=== PATIENT | male | born 1935 | race Caucasian/White ===

== ENCOUNTER 2020-08-09 16:51 | Inpatient (IN) | payer MEDICARE, MEDICAID, SELFPAY ==
--- NOTE | 2020-08-09 16:57 | XR_ITS ---
EXAMINATION: XR CHEST CLINICAL INFORMATION: Small bowel obstruction COMPARISON: Chest x-ray 10/04/2019 TECHNIQUE: Frontal portable view of the chest was obtained. 5:01 PM FINDINGS: Lungs are clear. No pulmonary vascular congestion. There is no pleural effusion. The heart size is normal. The cardiac and mediastinal contours are normal. There are a small volume calcifications of the thoracic aorta. Thoracic aorta is tortuous. There are multilevel degenerative changes of dorsal spine. XR/XR chest 1V IMPRESSION: No acute abnormality of the chest.
[2020-08-09 17:02] VITALS: BP 138/73; PULSE 105; RESP 25; TEMP 38.3; O2SAT 88; BMI 19.3
--- NOTE | 2020-08-09 17:08 | PC.NURSE ---
PLEASE Call oleg[facility] [phone] with updates. daughter in law.
--- NOTE | 2020-08-09 17:22 | ED_ITS ---
HPI - General Adult General Chief complaint: Fever Stated complaint: HYPOXIA Time Seen by Provider: 08/09/20 16:57 Source: EMS and old records reviewed Mode of arrival: EMS Limitations: altered mental status History of Present Illness HPI narrative: Patient with recent discharge transfer to detention on 07/06 had ESBL E coli and VRE in the urine but repeat culture was negative came back from detention for increased lethargic fever shortness of breath saturating 85% at room air. patient has significant dementia with limited history Related Data Home Medications Medication Instructions Recorded Confirmed amlodipine 1 tab PO DAILY 08/09/20 08/09/20 atorvastatin 1 tab PO DAILY 08/09/20 08/09/20 cephalexin 1 cap PO BID 08/09/20 08/09/20 cephalexin 1 cap PO BID 08/09/20 08/09/20 clopidogrel 1 tab PO DAILY 08/09/20 08/09/20 divalproex 250 mg PO BID 08/09/20 08/09/20 donepezil 1 tab PO DAILY 08/09/20 08/09/20 doxycycline hyclate 1 cap PO BID 08/09/20 08/09/20 haloperidol lactate 1 mg PO BID 08/09/20 08/09/20 hydralazine 20 mg PO DAILY@199908/09/20 08/09/20 lorazepam 0.5 mg PO Q4-6H PRN 08/09/20 08/09/20 metoprolol tartrate 1 tab PO BID 08/09/20 08/09/20 olanzapine 1 tab PO BEDTIME 08/09/20 08/09/20 omeprazole 1 cap PO DAILY 08/09/20 08/09/20 sertraline 1 tab PO DAILY 08/09/20 08/09/20 Allergies Allergy/AdvReac Type Severity Reaction Status Date / Time lisinopril [LISINOPRIL] Allergy Severe angioedema Unverified 07/01/20 15:14 Review of Systems Review of Systems: Yes Unobtainable due to mental status Neurologic: Reports confusion Psychiatric: Psychiatric: Reports confusion PMFSH Social History Social History Alcohol intake: unknown Smoking Status: Unknown if ever smoked Use of substances other than those prescribed or required for medical reasons: Unable to respond Advance Directives: No Advance Directives Information Provided: No Physical Exam Vital Signs: Vital Signs: Vital Signs Temp Pulse Resp BP Pulse Ox 08/09/20 21:27 84 14 100/57 L 91 L 08/09/20 20:31 98.3 F 98 18 94/46 L 08/09/20 18:00 112 H 16 126/73 08/09/20 17:02 101 F H 105 H 25 H 138/73 88 L Body Mass Index 19.3 Const: General: in distress, confusion, ill appearing and lethargic Nutritional Appearance: malnourished Orientation/consciousness: oriented to person, No oriented to place, No oriented to time, confusion and lethargic Limitations: altered mental status HENMT: Head: Yes normal to inspection Mouth: mucous membranes dry Eyes: General: appearance normal, both eyes and all related structures Neck: Neck: Yes normal visual inspection, Yes full ROM and Yes no lymphadenopathy Resp: Effort & Inspection: normal respiratory effort Auscultation: rales diffuse, no rhonchi, no wheezes and diminished lung sounds Cardio: Rate: regular rate and tachycardic Rhythm: regular rhythm Heart sounds: S1 normal heart sound present and S2 normal heart sound present GI: Inspection: Yes normal to inspection Palpation (GI): Soft to palpation and nontender Percussion: Yes normal to percussion Auscultation: normal bowel sounds : Other: Salas catheter in place Male General Exam: Yes normal external exam Neuro: General: oriented to person, No oriented to place, No oriented to time and confusion Cranial nerves: Yes CN's II-XII intact bilaterally Motor exa m (neuro): 5/5 motor strength present throughout ( no focal deficit) and Motor abnormalities not present Course Course Course Narrative: patient with acute lethargic fever tachycardia hypoxia and a cute renal failure, UTI, pneumonia meeting the criteria for sepsis with dehydration. Patient received IV fluids more than 30 cc/kilogram IV antibiotic Invanz and vancomycin was given COVID-19 is negative will admit patient for IV fluids and antibiotics Medical Decision Making Lab Data Result diagrams: 08/09/20 17:28 08/09/20 17:28 Labs: Lab Results 08/09/20 08/09/20 08/09/20 Range/Units 17:28 17:28 17:28 WBC 5.4 (4.8-10.8) X10*3/uL RBC 4.55 L (4.60-5.80) X10*6/uL Hgb 10.6 L (14.0-18.0) g/dl Hct 35.1 L (42-52) % MCV 77.1 L (80-98) fL MCH 23.3 L (27.0-33.0) pg MCHC 30.2 L (31.0-36.0) g/dl RDW 16.9 H (11.0-16.0) % Plt Count 461 H (160-400) X10*3/uL MPV 9.9 (9.4-12.4) fL Immature Gran % (Auto) Cancelled Neut % (Auto) Cancelled Lymph % (Auto) Cancelled [place] % (Auto) Cancelled Eos % (Auto) Cancelled Baso % (Auto) Cancelled Lymph # (Auto) Cancelled [place] # (Auto) Cancelled Eos # (Auto) Cancelled Baso # (Auto) Cancelled Abs Immat Gran (auto) Cancelled Absolute Neuts (auto) Cancelled Absolute Nucleated RBC 0.000 (0.0-0.012) X10*3/uL Nucleated RBC % (auto) 0.0 (0.0-0.2) /100WBC Neutrophils % (Manual) 51 (45-73) % Band Neutrophils % 22 H (3-5) % Lymphocytes % (Manual) 18 L (20-40) % Monocytes % (Manual) 5 (2-11) % Metamyelocytes % 1 % Myelocytes % 3 % Abs Neuts (Manual) 3.9 (2.2-7.9) X10*3/uL Lymphocytes # (Manual) 1.0 (0.6-4.8) X10*3/uL Monocytes # (Manual) 0.3 (0.0-1.2) X10*3/uL Metamyelocytes # 0.1 X10*3/uL Myelocytes # 0.2 X10*/uL Nucleated RBCs 2 H (0-0) /100WBC Toxic Vacuolation PRESENT Dohle Bodies PRESENT Platelet Estimate INCREASED (NORMAL) Large Platelets PRESENT Plt Morphology Comment NORMAL RBC Morphology NORMAL VBG pH (7.32-7.43) VBG pCO2 mmhg VBG Oxygen Liters/Min VBG pO2 mmhg VBG HCO3 mmol/L VBG O2 Saturation % VBG Base Excess mmol/L Sodium 152 H (135-145) mmol/L Potassium 4.5 (3.3-5.1) mmol/l Chloride 113 H (96-108) mmol/L Carbon Dioxide 17 L (22-29) mmol/L Anion Gap 27 H (12-20) BUN 116 H* (9-16) mg/dL Creatinine 5.57 H* (0.5-1.4) mg/dL Estim Creat Clear Calc 6.8 Estimated GFR 10 Random Glucose 98 (60-115) mg/dL Lactic Acid 1.9 (0.5-2.0) mmol/L Calcium 8.6 (8.4-10.2) mg/dL Total Bilirubin 0.3 (0.0-1.0) mg/dL AST 36 (5-37) U/L ALT 22 (0-40) U/L Alkaline Phosphatase 84 (39-117) U/L Total Protein 7.1 (6.5-8.0) g/dL Albumin 3.6 (3.5-5.0) g/dL Urine Color Urine Appearance Urine pH (5.0-8.0) Ur Specific [place] (1.005-1.025) Urine Protein (NEG-TRACE) MG/DL Urine Glucose (UA) (NEG) MG/DL Urine Ketones (NEG) MG/DL Urine Blood (NEG) Urine Nitrite (NEG) Ur Leukocyte Esterase (NEG) Urine RBC (0) /HPF Urine WBC (0-4) /HPF Ur Squamous Epith Cells /LPF Urine Bacteria /LPF Coronavirus (PCR) (Negative) 08/09/20 08/09/20 08/09/20 Range/Units 20:28 20:28 21:29 WBC (4.8-10.8) X10*3/uL RBC (4.60-5.80) X10*6/uL Hgb (14.0-18.0) g/dl Hct (42-52) % MCV (80-98) fL MCH (27.0-33.0) pg MCHC (31.0-36.0) g/dl RDW (11.0-16.0) % Plt Count (160-400) X10*3/uL MPV (9.4-12.4) fL Immature Gran % (Auto) Neut % (Auto) Lymph % (Auto) Butts % (Auto) Eos % (Auto) Baso % (Auto) Lymph # (Auto) [place] # (Auto) Eos # (Auto) Baso # (Auto) Abs Immat Gran (auto) Absolute Neuts (auto) Absolute Nucleated RBC (0.0-0.012) X10*3/uL Nucleated RBC % (auto) (0.0-0.2) /100WBC Neutrophils % (Manual) (45-73) % Band Neutrophils % (3-5) % Lymphocytes % (Manual) (20-40) % Monocytes % (Manual) (2-11) % Metamyelocytes % % Myelocytes % % Abs Neuts (Manual) (2.2-7.9) X10*3/uL Lymphocytes # (Manual) (0.6-4.8) X10*3/uL Monocytes # (Manual) (0.0-1.2) X10*3/uL Metamyelocytes # X10*3/uL Myelocytes # X10*/uL Nucleated RBCs (0-0) /100WBC Toxic Vacuolation Dohle Bodies Platelet Estimate (NORMAL) Large Platelets Plt Morphology Comment RBC Morphology VBG pH 7.26 L (7.32-7.43) VBG pCO2 38 mmhg VBG Oxygen Liters/Min Not Reportable VBG pO2 46 mmhg VBG HCO3 17 mmol/L VBG O2 Saturation 75.1 % VBG Base Excess -9.4 mmol/L Sodium (135-145) mmol/L Potassium (3.3-5.1) mmol/l Chloride (96-108) mmol/L Carbon Dioxide (22-29) mmol/L Anion Gap (12-20) BUN (9-16) mg/dL Creatinine (0.5-1.4) mg/dL Estim Creat Clear Calc Estimated GFR Random Glucose (60-115) mg/dL Lactic Acid (0.5-2.0) mmol/L Calcium (8.4-10.2) mg/dL Total Bilirubin (0.0-1.0) mg/dL AST (5-37) U/L ALT (0-40) U/L Alkaline Phosphatase (39-117) U/L Total Protein (6.5-8.0) g/dL Albumin (3.5-5.0) g/dL Urine Color YELLOW Urine Appearance CLOUDY Urine pH 6.0 (5.0-8.0) Ur Specific [place] 1.025 (1.005-1.025) Urine Protein 2+ H (NEG-TRACE) MG/DL Urine Glucose (UA) NEG (NEG) MG/DL Urine Ketones NEG (NEG) MG/DL Urine Blood 2+ H (NEG) Urine Nitrite POS H (NEG) Ur Leukocyte Esterase 2+ H (NEG) Urine RBC 1-4 (0) /HPF Urine WBC 15-29 H (0-4) /HPF Ur Squamous Epith Cells TRACE /LPF Urine Bacteria 3+ /LPF Coronavirus (PCR) NEGATIVE (Negative) Discharge Plan Discharge Clinical Impression: Sepsis Qualifiers: Sepsis type: sepsis due to unspecified organism Sepsis acute organ dysfunction status: with acute organ dysfunction Severe sepsis acute organ dysfunction type: acute renal failure Acute renal failure type: unspecified Severe sepsis shock status: without septic shock Qualified Code(s): A41.9 - Sepsis, unspecified organism Pneumonia Qualifiers: Pneumonia type: due to unspecified organism Laterality: bilateral Lung location: unspecified part of lung Qualified Code(s): J18.9 - Pneumonia, unspecified organism Renal failure (ARF), acute on chronic Qualifiers: Acute renal failure type: unspecified Chronic kidney disease stage: stage 4 (severe) Qualified Code(s): N17.9 - Acute kidney failure, unspecified Patient Disposition: Admitted As Inpatient
[2020-08-09 17:39] LABS: Hematocrit 35.1 % (42-52); Hemoglobin 10.6 g/dl (14.0-18.0); Mean Corpuscular HGB Conc 30.2 g/dl (31.0-36.0); Mean Corpuscular Hemoglobin 23.3 pg (27.0-33.0); Mean Corpuscular Volume 77.1 fL (80-98); Mean Platelet Volume 9.9 fL (9.4-12.4); Platelet Count 461 X10*3/uL (160-400); Red Blood Count 4.55 X10*6/uL (4.60-5.80); Red Cell Distribution Width 16.9 % (11.0-16.0)
[2020-08-09 17:41] LABS: WBC ABN SCTR FOR CBC 1
[2020-08-09] MEDS: 0.9 % Sodium Chloride 1,500 ML 1500 ML IVCONT (17:46)
[2020-08-09] MEDS: Ertapenem Sodium 0.5 GM in 0.9 % Sodium Chloride 50 ML IV (17:48)
[2020-08-09] MEDS: Acetaminophen Supp 650 MG SUPP.RECT PR (17:49)
[2020-08-09] MEDS: 0.9 % Sodium Chloride 1,000 ML 999 ML IVCONT (17:49)
[2020-08-09 17:57] LABS: Lactic Acid 1.9 mmol/L (0.5-2.0)
[2020-08-09 18:00] VITALS: BP 126/73; PULSE 112; RESP 16
[2020-08-09 18:07] LABS: White Blood Count 5.4 X10*3/uL (4.8-10.8)
[2020-08-09 18:31] LABS: Alanine Aminotransferase 22 U/L (0-40); Albumin Level 3.6 g/dL (3.5-5.0); Alkaline Phosphatase 84 U/L (39-117); Anion Gap 27 (12-20); Aspartate Amino Transferase 36 U/L (5-37); Bilirubin Total 0.3 mg/dL (0.0-1.0); Blood Urea Nitrogen 116 mg/dL (9-16); Calcium 8.6 mg/dL (8.4-10.2); Carbon Dioxide 17 mmol/L (22-29); Chloride 113 mmol/L (96-108); Creatinine Clr Calc Pharmacy 6.8; Estimated Glomerular Filt Rate 10; Glucose Random 98 mg/dL (60-115); Potassium 4.5 mmol/l (3.3-5.1); Sodium 152 mmol/L (135-145); Total Protein 7.1 g/dL (6.5-8.0)
[2020-08-09 18:40] LABS: Band Neutrophils Percent 22 % (3-5); Lymphocytes Percent Manual 18 % (20-40); Metamyelocytes Absolute 0.1 X10*3/uL; Metamyelocytes Percent 1 %; Monocytes Absolute Manual 0.3 X10*3/uL (0.0-1.2); Monocytes Percent Manual 5 % (2-11); Myelocytes Absolute 0.2 X10*/uL; Myelocytes Percent 3 %; Neutrophils Absolute Manual 3.9 X10*3/uL (2.2-7.9); Neutrophils Percent Manual 51 % (45-73)
[2020-08-09 18:50] LABS: RBC Morphology NORMAL; Toxic Vacuolation PRESENT
[2020-08-09 18:51] LABS: Dohle Bodies PRESENT
[2020-08-09 18:52] LABS: Large Platelet PRESENT; Platelet Estimate INCREASED (NORMAL); Platelet Morphology Comment NORMAL
[2020-08-09 18:53] LABS: Nucleated Red Blood Cells 2 /100WBC (0-0)
--- NOTE | 2020-08-09 20:14 | CT_ITS ---
EXAMINATION: CT CHEST WITHOUT CONTRAST CLINICAL INFORMATION: Hypoxic. COMPARISON: Chest x-ray today. CT chest 09/28/2014. Ultrasound of abdomen 05/10/2009. CT scan abdomen pelvis 05/11/2019 TECHNIQUE: Multidetector volumetric CT imaging of the chest was done. Axial MIP volume rendering provided. Sagittal and coronal reformatted images were obtained. This CT examination was performed using dose optimization techniques as appropriate, variously including the following: *Automated exposure control *Adjustment of mA and/or kV according to patient size (this includes techniques or standardized protocols for targeted exams where dose is matched to indication/reason for exam; i.e. extremities or head) *Use of iterative reconstruction technique DLP: 321 mGy-cm FINDINGS: There is artifact from the patient's arms at the side during the imaging. LUNGS: There is patchy infiltrate at the posterior right lung base. There are small areas of peripheral consolidation of the infiltrate at the dependent lung base. There is also a small infiltrate at the dependent right upper lobe along the major fissure. Left lung is normally aerated. Lung nodule: 5 mm focal pleural thickening along the minor fissure axial image 31 series 4, coronal image 36. MEDIASTINUM: No significant lymphadenopathy. No mediastinal mass. There is no pericardial effusion. There are scattered vascular calcifications of aorta. The aorta is ectatic. The ascending aorta is mildly dilated measuring 4.3 cm transverse. PLEURA: There is no pleural effusion. No pleural mass or thickening. AXILLA: No lymphadenopathy. UPPER ABDOMEN: Hypodensity in the left renal pelvis upper pole similar to CT scan abdomen pelvis of 05/03/2019. No suspicious focal lesion of the visualized portions of liver, spleen, pancreas or the adrenal glands. OSSEOUS STRUCTURES: Multilevel degenerative spondylosis of the spine. CT/CT chest wo con IMPRESSION: Pneumonic infiltrate in right lower lobe and right upper lobe.
[2020-08-09 20:31] VITALS: BP 94/46; PULSE 98; RESP 18; TEMP 36.8
[2020-08-09 20:45] LABS: Base Excess VBG -9.4 mmol/L; HCO3 VBG 17 mmol/L; Oxygen Saturation VBG 75.1 %; PCO2 VBG 38 mmhg; PO2 VBG 46 mmhg; pH VBG 7.26 (7.32-7.43)
[2020-08-09 20:50] LABS: Glucose Urine UA NEG (NEG); Leukocyte Esterase Urine 2+ (NEG); Nitrite Urine POS (NEG); Specific Gravity - Urine 1.025 (1.005-1.025); Urine Blood 2+ (NEG); Urine Ketones NEG (NEG); Urine Protein 2+ MG/DL (NEG-TRACE)
[2020-08-09 20:57] LABS: Appearance Urine CLOUDY; Color Urine YELLOW
[2020-08-09 21:16] LABS: Bacteria Urine 3+ /LPF; Squamous Epithelial Cell Urine TRACE /LPF
[2020-08-09 21:27] VITALS: BP 100/57; PULSE 84; RESP 14; O2SAT 91
[2020-08-09] MEDS: vancomycin HCL 750 MG in 0.9 % Sodium Chloride 250 ML 265 MG IV (22:13)
--- NOTE | 2020-08-09 22:22 | PC.NURSE ---
This RN to bedside, pt sleeping at this time SPO2 89-92%, provider aware. Attempt to apply O2 by cannula, unsuccessful patient pulling it off. Anttibiotic started as ordered. Pt remains on playground monitor. Awaiting admission to inpatient unit.
[2020-08-09 22:27] LABS: SARS COV2 PCR INHOUSE NEGATIVE (Negative)
[2020-08-09 22:49] VITALS: BP 104/54; PULSE 93; O2SAT 93
[2020-08-10] VITALS (15 sets, daily range): BP systolic 87–136; BP diastolic 50–66; PULSE 86–107; RESP 20–35; TEMP 36.4–39.1; O2SAT 82–100; BMI 21.7
--- NOTE | 2020-08-10 | XR_ITS ---
EXAMINATION: XR CHEST CLINICAL INFORMATION: Shortness of breath COMPARISON: Chest x-ray 08/09/2020 TECHNIQUE: Frontal view of the chest was obtained. FINDINGS: Silhouette is normal in size. Lungs are adequately aerated. There is no gross lobar consolidation. No pleural effusion or pneumothorax. Degenerative changes of the spine and shoulders. XR/XR chest 1V IMPRESSION: Stable examination demonstrating no acute pulmonary pathology.
[2020-08-10] MEDS: cefEPime HCl 1 GM in 0.9 % Sodium Chloride 50 ML IV (00:15)
[2020-08-10] MEDS: Heparin Sodium,Porcine 5,000 UNIT/ML VIAL 5000 UNIT SUBCUT ×3 (00:15→23:28)
[2020-08-10] MEDS: Sodium Chloride 0.45 % 1,000 ML 100 ML IVCONT ×3 (00:16→18:31)
[2020-08-10] MEDS: 0.9 % Sodium Chloride Flush 3 ML SYRINGE IVFLUSH ×4 (00:16→23:28)
--- NOTE | 2020-08-10 05:10 | P.HPIM_ITS ---
History of Present Illness Date of Service: 08/09/20 Chief Complaint: lethargy this is an 84-year-old male with past medical history as below who is a resident of [facility] presents to the hospital with lethargy. Patient is completely confused and unable to give me any history therefore history is mostly obtained from ED physician. 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 Patient also has significant dementia. Today the chief complaint for why patient was brought into the hospital with lethargy and hypoxia. According to the [facility] nose patient was hypoxic at 85% on room air. On arrival to the ED patient was also febrile with a fever of 101 , other vitals are significant for a pulse rate of 105, respiratory rate of 25 and pulse oximetry of 80% on room air. Labs are significant for normal WBC count, hemoglobin of 10.6 which is around his baseline, sodium of 152, chloride of 113, BUN of 116 with a creatinine of 5.57 ( baseline around 1.4-1.9 ) positive UA for nitrites, leukocyte Estrace and WBC, CT of the chest shows pneumonic infiltrates in the right upper and lower lobe. COVID-19 negative past medical history is obtained mostly from the chart as patient is significan tly confused and unable to participate in history taking PAST MEDICAL HISTORY: 1. Dementia. 2. Urinary retention with chronic Salas. 3. Hypertension. 4. CKD, stage 3. 5. History of bladder stones. 6. Stroke February 2019, status post tPA. 7. Carotid stenosis, status post right carotid endarterectomy. PAST SURGICAL HISTORY: 1. Multiple urological procedures. 2. Cataract extraction with lens implantation. 3. Right carotid endarterectomy March 24, 2019. FAMILY HISTORY: Significant for hypertension. SOCIAL HISTORY: The patient is . Currently resides at [facility]. Review of Systems Review of Systems: Yes all other systems are reviewed and are negative Neurologic: Reports confusion Psychiatric: Psychiatric: Reports confusion PENDING SALE TO [facility] Medical History Chronic kidney disease (CKD) Dementia History of CVA (cerebrovascular accident) Hypertension Urinary retention Social History Household Members: Unknown / Unable to assess and Other Housing: Alf Alcohol intake: unknown Smoking Status: Unknown if ever smoked Use of substances other than those prescribed or required for medical reasons: Unable to respond Advance Directives: No Advance Directives Information Provided: No Do you have thoughts of harming others: None Do you have a plan to hurt others: No Plan Recently lost weight without trying: Unsure Meds Allergies Allergy/AdvReac Type Severity Reaction Status Date / Time lisinopril [LISINOPRIL] Allergy Severe angioedema Verified 08/10/20 01:53 Home Medications Medication Instructions Recorded Confirmed Type amlodipine 1 tab PO DAILY 08/09/20 08/09/20 History atorvastatin 1 tab PO DAILY 08/09/20 08/09/20 History cephalexin 1 cap PO BID 08/09/20 08/09/20 History cephalexin 1 cap PO BID 08/09/20 08/09/20 History clopidogrel 1 tab PO DAILY 08/09/20 08/09/20 History divalproex 250 mg PO BID 08/09/20 08/09/20 History donepezil 1 tab PO DAILY 08/09/20 08/09/20 History doxycycline hyclate 1 cap PO BID 08/09/20 08/09/20 History haloperidol lactate 1 mg PO BID 08/09/20 08/09/20 History hydralazine 20 mg PO DAILY@199908/09/20 08/09/20 History lorazepam 0.5 mg PO Q4-6H PRN 08/09/20 08/09/20 History metoprolol tartrate 1 tab PO BID 08/09/20 08/09/20 History olanzapine 1 tab PO BEDTIME 08/09/20 08/09/20 History omeprazole 1 cap PO DAILY 08/09/20 08/09/20 History sertraline 1 tab PO DAILY 08/09/20 08/09/20 History Physical Exam Vital Signs and Narrative: Vital Signs: Last Vital Signs Temp 97.5 F 08/10/20 03:19 Pulse 107 H 08/10/20 03:19 Resp 22 H 08/10/20 03:19 BP 105/66 08/10/20 03:19 Pulse Ox 98 08/10/20 03:19 Body Mass Index 21.7 Const: Other: alert but not oriented General: confusion Orientation/consciousness: confusion Eyes: General: appearance normal, both eyes and all related structures Pupils: Equal, round and reactive pupils present Resp: Effort & Inspection: normal respiratory effort and able to speak in complete sentences Auscultation: clear to auscultation bilaterally Cardio: Rate: regular rate Rhythm: regular rhythm GI: Palpation (GI): Soft to palpation Auscultation: normal bowel sounds Skin: General skin exam: no rashes or lesions noted Neuro: General: confusion Cranial nerves: Yes Equal, round and reactive pupils present Cognition (Neuro): normal cognition Extrem: General: Yes normal to inspection and Yes no pedal edema Results Labs Labs: Laboratory Tests 08/09/20 08/09/20 08/09/20 17:28 17:28 17:28 WBC 5.4 RBC 4.55 L Hgb 10.6 L Hct 35.1 L MCV 77.1 L MCH 23.3 L MCHC 30.2 L RDW 16.9 H Plt Count 461 H MPV 9.9 Immature Gran % (Auto) Cancelled Neut % (Auto) Cancelled Lymph % (Auto) Cancelled [place] % (Auto) Cancelled Eos % (Auto) Cancelled Baso % (Auto) Cancelled Lymph # (Auto) Cancelled [place] # (Auto) Cancelled Eos # (Auto) Cancelled Baso # (Auto) Cancelled Abs Immat Gran (auto) Cancelled Absolute Neuts (auto) Cancelled Absolute Nucleated RBC 0.000 Nucleated RBC % (auto) 0.0 Neutrophils % (Manual) 51 Band Neutrophils % 22 H Lymphocytes % (Manual) 18 L Monocytes % (Manual) 5 Metamyelocytes % 1 Myelocytes % 3 Abs Neuts (Manual) 3.9 Lymphocytes # (Manual) 1.0 Monocytes # (Manual) 0.3 Metamyelocytes # 0.1 Myelocytes # 0.2 Nucleated RBCs 2 H Toxic Vacuolation PRESENT Dohle Bodies PRESENT Platelet Estimate INCREASED Large Platelets PRESENT Plt Morphology Comment NORMAL RBC Morphology NORMAL VBG pH VBG pCO2 VBG Oxygen Liters/Min VBG pO2 VBG HCO3 VBG O2 Saturation VBG Base Excess Sodium 152 H Potassium 4.5 Chloride 113 H Carbon Dioxide 17 L Anion Gap 27 H BUN 116 H* Creatinine 5.57 H* Estim Creat Clear Calc 6.8 Estimated GFR 10 Random Glucose 98 Lactic Acid 1.9 Calcium 8.6 Total Bilirubin 0.3 AST 36 ALT 22 Alkaline Phosphatase 84 Total Protein 7.1 Albumin 3.6 Urine Color Urine Appearance Urine pH Ur Specific [place] Urine Protein Urine Glucose (UA) Urine Ketones Urine Blood Urine Nitrite Ur Leukocyte Esterase Urine RBC Urine WBC Ur Squamous Epith Cells Urine Bacteria Coronavirus (PCR) 08/09/20 08/09/20 08/09/20 20:28 20:28 21:29 WBC RBC Hgb Hct MCV MCH MCHC RDW Plt Count MPV Immature Gran % (Auto) Neut % (Auto) Lymph % (Auto) [place] % (Auto) Eos % (Auto) Baso % (Auto) Lymph # (Auto) [place] # (Auto) Eos # (Auto) Baso # (Auto) Abs Immat Gran (auto) Absolute Neuts (auto) Absolute Nucleated RBC Nucleated RBC % (auto) Neutrophils % (Manual) Band Neutrophils % Lymphocytes % (Manual) Monocytes % (Manual) Metamyelocytes % Myelocytes % Abs Neuts (Manual) Lymphocytes # (Manual) Monocytes # (Manual) Metamyelocytes # Myelocytes # Nucleated RBCs Toxic Vacuolation Dohle Bodies Platelet Estimate Large Platelets Plt Morphology Comment RBC Morphology VBG pH 7.26 L VBG pCO2 38 VBG Oxygen Liters/Min Not Reportable VBG pO2 46 VBG HCO3 17 VBG O2 Saturation 75.1 VBG Base Excess -9.4 Sodium Potassium Chloride Carbon Dioxide Anion Gap BUN Creatinine Estim Creat Clear Calc Estimated GFR Random Glucose Lactic Acid Calcium Total Bilirubin AST ALT Alkaline Phosphatase Total Protein Albumin Urine Color YELLOW Urine Appearance CLOUDY Urine pH 6.0 Ur Specific [place] 1.025 Urine Protein 2+ H Urine Glucose (UA) NEG Urine Ketones NEG Urine Blood 2+ H Urine Nitrite POS H Ur Leukocyte Esterase 2+ H Urine RBC 1-4 Urine WBC 15-29 H Ur Squamous Epith Cells TRACE Urine Bacteria 3+ Coronavirus (PCR) NEGATIVE Imaging CT scan - chest: Radiologist's impression: IMPRESSION: Pneumonic infiltrate in right lower lobe and right upper lobe. Assessment and Plan (1) Sepsis: Qualifiers: Acute renal failure type: unspecified Sepsis acute organ dysfunction status: with acute organ dysfunction Sepsis type: sepsis due to unspecified organism Severe sepsis acute organ dysfunction type: acute renal failure Severe sepsis shock status: without septic shock Qualified Code(s): A41.9 - Sepsis, unspecified organism; R65.20 - Severe sepsis without septic shock; N17.9 - Acute kidney failure, unspecified Status: Acute (2) Pneumonia: Qualifiers: Laterality: bilateral Lung location: unspecified part of lung Pneumonia type: due to unspecified organism Qualified Code(s): J18.9 - Pneumonia, unspecified organism Status: Acute (3) History of CVA (cerebrovascular accident): Status: Acute (4) Renal failure (ARF), acute on chronic: Qualifiers: Acute renal failure type: unspecified Chronic kidney disease stage: stage 4 (severe) Qualified Code(s): N17.9 - Acute kidney failure, unspecified; N18.4 - Chronic kidney disease, stage 4 (severe) Status: Acute (5) Hypertension: Status: Acute (6) Dementia: Status: Acute (7) Acute kidney injury superimposed on CKD: Status: Acute (8) UTI (urinary tract infection): Status: Acute (9) Hypernatremia: Status: Acute this is an 84-year-old male with past medical history of recurrent UTIs, and dementia presents to the hospital with lethargy, and hypoxia. # Sepsis - most likely multifactorial secondary to UTI versus pneumonia - patient has evidence of both of the above - febrile, leukocytosis, tachycardic and tachypneic Plan: - given history of ESBL and VRE will start patient on ertapenem - follow blood and urine cultures - IV fluids # UTI - UA positive, patient has history of VRE Enterococcus /ESBL as recent as June of 2020 plan: - Ertapenem 500 mg daily daily (renally adjusted) - follow blood and urine cultures # GILMER on CKD - most likely prerenal secondary to dehydration and acute sepsis - will place on IV fluids - follow BMP # hypernatremia - patient appears significantly volume depleted plan: - Start him on half NS and follow BMP # pneumonic infiltrate - COVID negative - localized to the right upper and lower lobe possibly concerning for aspiration - start him on antibiotic ertapenem as abov - antibiotics as above - will place on NPO, and obtain swallow evaluation # hypertension - potential for hypotension - at this time will hold hydralazine and amlodipine and resume once patient is clinical status more stable # dementia - continue donepezil # history of CVA - continue clopidogrel # DVT prophylaxis: heparin
[2020-08-10] MEDS: Ertapenem Sodium 0.5 GM in 0.9 % Sodium Chloride 50 ML IV (07:23)
[2020-08-10 07:33] LABS: Hematocrit 32.1 % (42-52); Hemoglobin 9.2 g/dl (14.0-18.0); Mean Corpuscular HGB Conc 28.7 g/dl (31.0-36.0); Mean Corpuscular Hemoglobin 23.1 pg (27.0-33.0); Mean Corpuscular Volume 80.7 fL (80-98); Mean Platelet Volume 10.6 fL (9.4-12.4); NRBC Pct Auto 0.3 /100WBC (0.0-0.2); Platelet Count 370 X10*3/uL (160-400); Red Blood Count 3.98 X10*6/uL (4.60-5.80); Red Cell Distribution Width 17.2 % (11.0-16.0)
[2020-08-10 07:34] LABS: Anion Gap 27 (12-20); Blood Urea Nitrogen 123 mg/dL (9-16); Calcium 7.8 mg/dL (8.4-10.2); Carbon Dioxide 11 mmol/L (22-29); Chloride 117 mmol/L (96-108); Creatinine Clr Calc Pharmacy 7.5; Estimated Glomerular Filt Rate 10; Glucose Random 92 mg/dL (60-115); Potassium 4.8 mmol/l (3.3-5.1); Sodium 150 mmol/L (135-145)
[2020-08-10 07:38] LABS: WBC ABN SCTR FOR CBC 1
--- NOTE | 2020-08-10 08:21 | P.CDIC_ITS ---
CDI Concurrent Query Service Date: 08/10/20 Documentation Clarification: Please clarify if you are treating a proba ble/suspected/likely or confirmed: Acute Hypoxic Respiratory Failure No Acute Hypoxic Respiratory Failure PLEASE DO NOT DELETE/MODIFY EXISTING CONTENT Additional information is needed in order to code to the highest accuracy and appropriate Severity of Illness (SOI). Please clarify the information noted below in your progress notes and discharge summary. Risk Factors/Clinical Indicators/Treatments 84 year old male admitted with fever, Hypoxia, SAT 85% room air. Received oxygen at 4L via nasal cannula Respiratory rate 14 - 28 CT Chest: Pneumonic infiltrate right upper and lower lobe Per H&P: Severe Sepsis, GILMER, Bilateral Pneumonia, UTI [place] 1.9 CDS: Emma Nascimento RN Contact Number: [phone] Please Review the information above and exercise your independent professional judgment in responding to the query. If you concur, pleas document in the PROGRESS NOTES and DISCHARGE SUMMARY. If you do not agree with the query, please document in the query above. THIS QUERY IS PART OF THE PERMANENT MEDICAL RECORD
[2020-08-10 09:08] LABS: Band Neutrophils Percent 3 % (3-5); Dohle Bodies PRESENT; Lymphocytes Absolute Manual 0.7 X10*3/uL (0.6-4.8); Lymphocytes Percent Manual 10 % (20-40); Monocytes Absolute Manual 0.1 X10*3/uL (0.0-1.2); Monocytes Percent Manual 2 % (2-11); Neutrophils Absolute Manual 6.2 X10*3/uL (2.2-7.9); Neutrophils Percent Manual 85 % (45-73); Toxic Granulation PRESENT
[2020-08-10 09:09] LABS: Burr Cells 1+; Microcytosis 1+; Ovalocytes 1+; Platelet Estimate NORMAL (NORMAL); Platelet Morphology Comment NORMAL; RBC Morphology NOTED
--- NOTE | 2020-08-10 12:47 | MHC.CM.PN ---
[facility]
[2020-08-10 12:56] LABS: Sodium 150 mmol/L (135-145)
--- NOTE | 2020-08-10 13:14 | W.PM.IDCN ---
History of Present Illness Data of Consult Service Date: 08/10/20 Requesting physician: Kelton Correa Primary Care Provider: MD NIKKI Fernandez Reason for consult: hypoxia,fever He presents from [facility] He was in hospital and discharged on 07/06 He has MDR organisms, ESBL E coli and VRE urine He now has fever and hypoxia,80s Review of Systems Review of Systems: Yes Unobtainable due to mental condition Neurologic: Reports confusion Psychiatric: Psychiatric: Reports confusion [facility] Past Medical History Medical History Chronic kidney disease (CKD) Dementia History of CVA (cerebrovascular accident) Hypertension Urinary retention Family History Family history: reviewed and not pertinent Social History Social History Household Members: Unknown / Unable to assess and Other Housing: Skilled Nursing Alcohol intake: unknown Smoking Status: Unknown if ever smoked Use of substances other than those prescribed or required for medical reasons: Unable to respond Currently Displaying Signs/Symptoms of Drug Intoxication Withdrawal: No Advance Directives: No Advance Directives Information Provided: No Do you have thoughts of harming others: None Do you have a plan to hurt others: No Plan Recently lost weight without trying: Unsure service: No Meds Allergies Allergy/AdvReac Type Severity Reaction Status Date / Time lisinopril [LISINOPRIL] Allergy Severe angioedema Verified 08/10/20 01:53 Home Medications Medication Instructions Recorded Confirmed Type amlodipine 1 tab PO DAILY 08/09/20 08/09/20 History atorvastatin 1 tab PO DAILY 08/09/20 08/09/20 History cephalexin 1 cap PO BID 08/09/20 08/09/20 History cephalexin 1 cap PO BID 08/09/20 08/09/20 History clopidogrel 1 tab PO DAILY 08/09/20 08/09/20 History divalproex 250 mg PO BID 08/09/20 08/09/20 History donepezil 1 tab PO DAILY 08/09/20 08/09/20 History doxycycline hyclate 1 cap PO BID 08/09/20 08/09/20 History haloperidol lactate 1 mg PO BID 08/09/20 08/09/20 History hydralazine 20 mg PO DAILY@199908/09/20 08/09/20 History lorazepam 0.5 mg PO Q4-6H PRN 08/09/20 08/09/20 History metoprolol tartrate 1 tab PO BID 08/09/20 08/09/20 History olanzapine 1 tab PO BEDTIME 08/09/20 08/09/20 History omeprazole 1 cap PO DAILY 08/09/20 08/09/20 History sertraline 1 tab PO DAILY 08/09/20 08/09/20 History Physical Exam Vital Signs: Vital Signs: Vital Signs Temp Pulse Resp BP Pulse Ox 08/10/20 10:52 97.7 F 98 20 119/62 97 08/10/20 07:30 99.2 F 08/10/20 07:22 96 20 122/63 93 08/10/20 03:19 97.5 F 107 H 22 H 105/66 98 08/10/20 00:41 96 08/10/20 00:40 85 L 08/10/20 00:04 97.8 F 90 28 H 97/56 L 95 08/09/20 22:49 93 104/54 L 93 08/09/20 21:27 84 14 100/57 L 91 L 08/09/20 20:31 98.3 F 98 18 94/46 L 08/09/20 18:00 112 H 16 126/73 08/09/20 17:02 101 F H 105 H 25 H 138/73 88 L Body Mass Index 21.7 Const: General: confusion Orientation/consciousness: No oriented to person, No oriented to place, No oriented to time and confusion HENMT: Head: Yes normal to inspection Face and sinus: Yes normal facial exam Throat: Yes posterior oropharynx normal Eyes: General: appearance normal, both eyes and all related structures Resp: Effort & Inspection: abnormal respiratory pattern and Actively coughing Cardio: Rate: regular rate Rhythm: regular rhythm GI: Inspection: Yes normal to inspection : General: Yes no CVA tenderness Back/Spine/Pelvis: Back: no CVA tenderness Skin: General skin exam: no rashes or lesions noted Neuro: General: No oriented to person, No oriented to place, No oriented to time and confusion Extrem: General: Yes normal to inspection Assessment and Plan (1) Pneumonia: Qualifiers: Laterality: bilateral Lung location: unspecified part of lung Pneumonia type: due to unspecified organism Qualified Code(s): J18.9 - Pneumonia, unspecified organism Status: Acute He appears to have right sided aspiration pneumonia He has risk dementia,NH and hospital recently No COVID Suggest Agree with Merem cover above organisms Would give likely 5-8 days Prognosis guarded (2) Acute kidney injury superimposed on CKD: Problem details: Most likely has ATN Non oliguric Cr trending down BUN lagging behind No indication for dialysis yet Keep I > O and SBP > 100 Status: Acute (3) UTI (urinary tract infection): Problem details: not acute issue,colonized with MDR organisms Status: Acute Results Labs CBC & Chem 7: 08/15/20 05:13 08/15/20 05:13 Labs: Short CBC 08/09/20 08/10/20 Range/Units 17:28 05:24 WBC 5.4 7.0 (4.8-10.8) X10*3/uL Hgb 10.6 L 9.2 L (14.0-18.0) g/dl Hct 35.1 L 32.1 L (42-52) % Plt Count 461 H 370 (160-400) X10*3/uL BMP 08/09/20 08/10/20 08/10/20 17:28 05:24 11:53 Sodium 152 H 150 H 150 H Potassium 4.5 4.8 Chloride 113 H 117 H Carbon Dioxide 17 L 11 L BUN 116 H* 123 H* Creatinine 5.57 H* 5.62 H* Calcium 8.6 7.8 L Liver Function 08/09/20 Range/Units 17:28 Total Bilirubin 0.3 (0.0-1.0) mg/dL AST 36 (5-37) U/L ALT 22 (0-40) U/L Alkaline Phosphatase 84 (39-117) U/L Albumin 3.6 (3.5-5.0) g/dL Urine 08/09/20 Range/Units 20:28 Urine Color YELLOW Urine Appearance CLOUDY Urine pH 6.0 (5.0-8.0) Ur Specific [place] 1.025 (1.005-1.025) Urine Protein 2+ H (NEG-TRACE) MG/DL Urine Glucose (UA) NEG (NEG) MG/DL Microbiology Microbiology Results: Microbiology 08/09/20 21:00 Urine clean catch - Clean Catch Midstream Urine Culture - Preliminary
--- NOTE | 2020-08-10 13:40 | HO.PM.IMPN ---
Subjective Subjective Date of Service: 08/10/20 Interval History: lethargy Cardiovascular Cardiovascular: Reports no additional cardiovascular complaints Respiratory Respiratory: Reports as per HPI Physical Exam Vital Signs: Vital Signs: Vital Signs Temp Pulse Resp BP Pulse Ox 08/10/20 10:52 97.7 F 98 20 119/62 97 08/10/20 07:30 99.2 F 08/10/20 07:22 96 20 122/63 93 08/10/20 03:19 97.5 F 107 H 22 H 105/66 98 08/10/20 00:41 96 08/10/20 00:40 85 L 08/10/20 00:04 97.8 F 90 28 H 97/56 L 95 08/09/20 22:49 93 104/54 L 93 08/09/20 21:27 84 14 100/57 L 91 L 08/09/20 20:31 98.3 F 98 18 94/46 L 08/09/20 18:00 112 H 16 126/73 08/09/20 17:02 101 F H 105 H 25 H 138/73 88 L Body Mass Index 21.7 General: lethargic, ill appearing Resp: rales CVS: S1,S2,RRR GI: soft, non tender, non distended Psych: impaired insight Objective Data Current Medications Generic Name Dose Route Start Last Admin Trade Name Chrisq PRN Reason Stop Dose Admin Acetaminophen 650 mg 08/09/20 23:21 Acetaminophen 325 Mg Tablet PO Q6H PRN Pain, Mild (Pain Scale 1-3) Atorvastatin Calcium 80 mg 08/10/20 09:00 08/10/20 10:45 Atorvastatin Calcium 80 Mg Tablet PO Not Given DAILY [facility] Clopidogrel Bisulfate 75 mg 08/10/20 09:00 08/10/20 10:45 Clopidogrel Bisulfate 75 Mg Tablet PO Not Given DAILY [facility]1983 Divalproex Sodium 250 mg 08/10/20 09:00 08/10/20 10:45 Divalproex Sodium Sprinkles 125 Mg Cap. PO Not Given BID SHANNON Docusate Sodium 100 mg 08/09/20 23:21 Docusate Sodium 100 Mg Capsule PO DAILY PRN Constipation Donepezil HCl 10 mg 08/10/20 09:00 08/10/20 10:46 Donepezil Hcl 10 Mg Tablet PO Not Given DAILY [facility] Haloperidol Lactate 1 mg 08/10/20 09:00 08/10/20 10:46 Haloperidol Lactate 10 Mg/5 Ml Oral.Conc PO Not Given BID [facility]1983 Heparin Sodium (Porcine) 5,000 unit 08/09/20 23:21 08/10/20 11:36 Heparin Sodium,Porcine 5,000 Unit/Ml Vial SUBCUT 5,000 unit Q12H SHANNON Administration Sodium Chloride 1,000 mls @ 100 mls/hr 08/09/20 23:21 08/10/20 09:56 IVCONT 100 mls/hr .Q10H SHANNON Administration Meropenem 500 mg/ Sodium 50 mls @ 100 mls/hr 08/10/20 09:00 08/10/20 10:20 Chloride IV Infused Q24H [facility] Infusion Lorazepam 0.5 mg 08/10/20 05:29 Lorazepam 0.5 Mg Tablet PO Q4H PRN Agitation Metoprolol Tartrate 25 mg 08/10/20 09:00 08/10/20 10:46 Metoprolol Tartrate 25 Mg Tablet PO Not Given BID [facility] Protocol Olanzapine 5 mg 08/10/20 21:00 Olanzapine 5 Mg Tablet PO BEDTIME [facility] Omeprazole 20 mg 08/10/20 09:00 08/10/20 10:46 Omeprazole 20 Mg Capsule.Dr PO Not Given DAILY [facility] Ondansetron HCl 4 mg 08/09/20 23:21 Ondansetron Hcl 4 Mg/2 Ml Vial IVPUSH Q8H PRN Nausea and Vomiting Sertraline HCl 25 mg 08/10/20 09:00 08/10/20 10:46 Sertraline Hcl 25 Mg Tablet PO Not Given DAILY [facility] Sodium Chloride 3 ml 08/10/20 00:00 08/10/20 07:24 0.9 % Sodium Chloride Flush 3 Ml Syringe IVFLUSH 3 ml QSHIFT [facility] Administration Labs CBC & Chem 7: 08/10/20 05:24 08/10/20 11:53 Microbiology Microbiology Results: Microbiology 08/09/20 21:00 Urine clean catch - Clean Catch Midstream Urine Culture - Preliminary Assessment and Plan (1) Hypernatremia: Status: Acute (2) UTI (urinary tract infection): Problem details: not acute issue,colonized with MDR organisms Status: Acute (3) Acute kidney injury superimposed on CKD: Status: Acute (4) Dementia: Status: Acute (5) Sepsis: Status: Acute (6) Pneumonia: Status: Acute (7) Acute respiratory failure with hypoxia: Status: Acute (8) Metabolic encephalopathy: Status: Acute (9) History of CVA (cerebrovascular accident): Status: Acute (10) Renal failure (ARF), acute on chronic: Status: Acute (11) Hypertension: Status: Acute Assessment and Plan: 84-year-old male with past medical history of recurrent UTIs, and dementia presents to the hospital with lethargy, and hypoxia. severe Sepsis poa due to aspiration pneumonia +/- UTI complicated by GILMER on CKD, metabolic encephalopathy, and acute hypoxic respiratory failure Id appreciated, continue meropenem follow-up cultures continue hypertonic saline, monitor sodium and creatinine. nephro following holding p.o. meds and food due to encephalopathy hypernatremia due to poor intake due to above hypotonic fluids, monitor BMP dementia at baseline, patient is wheelchair-bound due to history of CVA, recognizes family members, has a decent appetite, poor short-term memory, poor insight grave prognosis
--- NOTE | 2020-08-10 13:46 | W.MHC.ACPN ---
Advanced Care Planning Note Advanced Care Planning Note Discussed with: family member(s) Narrative: discussed over phone, due to COVID pandemic, with patient's daughter in law, regarding patient's diagnosis of sepsis, acute hypoxic respiratory failure, acute kidney injury due to pneumonia, we discussed patient's grave prognosis. and his current full code status. Plan is to continue with full code status as family is unsure of what they want to do at this time. The plan to discuss further regarding deescalating to do not resuscitate /do not intubate. They would like to continue with other medical care including IV antibiotics and IV fluids. Goals of care would be to return to previous baseline of about 2 weeks ago where patient was wheelchair bound, but alert and recognizing family and able to eat on his own. Problems Discussed (1) Hypernatremia: (2) UTI (urinary tract infection): (3) Acute kidney injury superimposed on CKD: (4) Dementia: (5) Sepsis: (6) Pneumonia: (7) Acute respiratory failure with hypoxia: (8) Metabolic encephalopathy: (9) History of CVA (cerebrovascular accident): (10) Renal failure (ARF), acute on chronic: (11) Hypertension:
--- NOTE | 2020-08-10 16:53 | CONS_ITS ---
DATE OF SERVICE: 08/10/2020 REASON FOR CONSULTATION: I was called to see this patient to assist in the management of hypernatremia. HISTORY OF PRESENT ILLNESS: To summarize, Diallo is an 84-year-old man, who is a group home resident, who comes in because of lethargy, was found to have severe hypernatremia and volume depleted. He was started on IV fluids and this consultation requested for management of hypernatremia. He was also found to have acute kidney injury with a BUN of 116 and creatinine of 5.5. Baseline creatinine has been less than 2 mg/dL. At the time of admission, the chest x-ray showed pulmonary infiltrates and is being treated for the same as well. He has a history of dementia and oral intake has been poor at the group home. PAST MEDICAL HISTORY: Ongoing medical problems include stage 3 chronic kidney disease, hypertension, history of urinary retention with chronic Salas catheter, dementia, history of stroke, peripheral vascular disease, carotid stenosis, status post right carotid endarterectomy. PAST SURGICAL HISTORY: Include multiple urological procedures, right carotid endarterectomy. FAMILY HISTORY: Significant for hypertension. No history of any kidney disease. SOCIAL HISTORY: He is a resident of [facility]. REVIEW OF SYSTEMS: Not obtained from the patient. Information obtained from the chart. PHYSICAL EXAMINATION: GENERAL: The patient appears ill. HEENT: Mucosa is dry. Not in any distress. NECK: Supple. No JVD. ABDOMEN: Soft, nontender. EXTREMITIES: No edema. MEDICATIONS: All the current medications were reviewed. ALLERGIES: HE IS ALLERGIC TO LISINOPRIL, WHICH CAUSES ANGIOEDEMA. LABORATORY DATA: Hemoglobin 10.6, platelets 461. Sodium 152, potassium 4.5, BUN 116, creatinine 5.57, CO2 of 17. Urinalysis showed specific gravity 1.025, 2+ protein, 2+ blood by dipstick with bacteria. IMPRESSION: Acute kidney injury and severe hypernatremia due to free water deficits in an elderly man with dementia. Acute kidney injury is most likely due to hypoperfusion from severe dehydration. Obstruction seems unlikely. He might have progressed to acute tubular necrosis in the setting of sepsis. Further clinical course will determine this. RECOMMENDATIONS: My recommendation will be to obtain a spot urine for sodium, creatinine, and protein. I agree with IV hydration. For now, we will keep him on half-normal saline, keep intake more than the output and monitor serum sodium every 4 hours. Goal is to cut the serum sodium at a rate of 0.5 millimole per liter per hour and not to exceed more than 10 millimoles in a 24-hour period. We will watch renal function closely. There is no absolute indication for dialysis. I agree with current antibiotic coverage. We will be happy to follow him along with the team. Subhash Longoria MD BPA/MODL / [phone]
--- NOTE | 2020-08-10 19:36 | PM.EVENT ---
Event Note Event Note: Did a tiger text from patient's nurse the patient's heart rate is in the 130s to 140s, patient is also hypoxic as well as hypotensive. I discussed patient's clinical status extensively with the son Ghassan and [id number] p.r.n. the stay that the wound patient to remain full code. I also for them of the poor prognosis his worsening clinical status. They are aware. rectal time showed patient to have a temperature of 102?. At this time will start him on p.r. Tylenol, he also has a blood pressure of 80/50s. Will give him 1 L of LR, ordered a stat chest x-ray, placed on non-rebreather. Early this AM, pts cliical status worsened, and his respiratory rate increased with increased work of breathing, tachycardia, hypotension. ICU was consulted and pt was intubated and admitted to the icu. Family notified ( Ning, daughter in-law)
[2020-08-10] MEDS: Lactated Ringers 500 ML 999 ML IVCONT (19:43)
[2020-08-10] MEDS: Acetaminophen Supp 650 MG SUPP.RECT PR (19:45)
--- NOTE | 2020-08-10 21:17 | PC.NURSE ---
Addendum entered by Lizette Xavier RN 08/11/20 04:03: Pt hr 90s, afib on tele. BP 91/60. notified. 1 L LR bolus ordered and administered. Pt continues to use accessory muscles to breath, on high flow 100%, O2 85%. Pt unresponsive to any stimulation. KETTLE GIRL to bedside, decision to admit to icu. Addendum entered by Lizette Xavier RN 08/11/20 00:38: Pt going in and out of afiv rvr on tele, highest rate 174. Confirmed by ekg. Pt now SR rate 90s. MD notified. No new orders at this time. Addendum entered by Lizette Xavier RN 08/10/20 22:26: Pt O2 82% on NRB. MD notified. RT to bedside to place on high flow, O2 improved to 94%. ABGs ordered and collected. Original Note: At shift change pt appeared tachypneic rate 26, using accessory muscles to breath. Pt responsive to deep pain and sternal rub only. O2 80% on 4 L NC, placed on NRB. BP 87/50, rectal temp 102.3. vehicle monitor technician place, ST 110-130s. Dr Norton to bedside. Family notified of pt's condition. 500 ml LR bolus, rectal tylenol ordered and administered. Stat chest x-ray completed. BP improved after bolus, temp down to 100.5. Awaiting family to visit patient. Will continue to monitor.
[2020-08-10 22:27] LABS: Pt Ventilation O2% 100%
[2020-08-10 22:29] LABS: ABG PCO2 34 mmhg (32-45); Base Excess ABG -10.2; HCO3 ABG 16 mmol/l (22-26); Oxygen Saturation ABG 96.8 %; PO2 ABG 105 mmhg (83-108); pH ABG 7.28 (7.35-7.45)
[2020-08-10 22:30] LABS: Blood Gas Serial # 5414
[2020-08-11] VITALS (30 sets, daily range): BP systolic 97–151; BP diastolic 38–74; PULSE 57–103; RESP 16–35; TEMP 36.5–38; O2SAT 94–100; BMI 21.7
--- NOTE | 2020-08-11 | XR_ITS ---
EXAMINATION: XR CHEST CLINICAL INFORMATION: Endotracheal tube placement COMPARISON: 08/10/2020 TECHNIQUE: Frontal view of the chest was obtained. There are 3 separate acquisitions, performed at 4:40 AM, 4:56 AM, and 5:05 AM. FINDINGS: On the final image, the endotracheal tube terminates approximately 4 cm above the darinel. On the final image, there is a left subclavian central venous catheter placed which terminates near the cavoatrial junction. (On the second image, there is a wire in place along the eventual course of the subclavian central line.) Cardiac leads overlie the chest. The lungs are well expanded. Minimal atelectasis at the lung bases. There may be a tiny right pleural effusion. No pneumothorax. No dense consolidation. The cardiomediastinal silhouette is unchanged. XR/XR chest 1V IMPRESSION: Endotracheal tube terminates 4 cm above the darinel. Left subclavian central venous catheter placed, terminating near the cavoatrial junction. No pneumothorax.
--- NOTE | 2020-08-11 | XR_ITS ---
EXAMINATION: XR CHEST CLINICAL INFORMATION: Endotracheal tube placement COMPARISON: 08/10/2020 TECHNIQUE: Frontal view of the chest was obtained. There are 3 separate acquisitions, performed at 4:40 AM, 4:56 AM, and 5:05 AM. FINDINGS: On the final image, the endotracheal tube terminates approximately 4 cm above the darinel. On the final image, there is a left subclavian central venous catheter placed which terminates near the cavoatrial junction. (On the second image, there is a wire in place along the eventual course of the subclavian central line.) Cardiac leads overlie the chest. The lungs are well expanded. Minimal atelectasis at the lung bases. There may be a tiny right pleural effusion. No pneumothorax. No dense consolidation. The cardiomediastinal silhouette is unchanged. XR/XR chest 1V IMPRESSION: Endotracheal tube terminates 4 cm above the darinel. Left subclavian central venous catheter placed, terminating near the cavoatrial junction. No pneumothorax.
--- NOTE | 2020-08-11 | XR_ITS ---
EXAMINATION: XR CHEST CLINICAL INFORMATION: ET tube placement COMPARISON: Earlier exam same day TECHNIQUE: Portable chest 6:44 AM view of the chest was obtained. FINDINGS: ET tube NG tube in place. NG tube is new with its tip overlying at least to the distal gastric body. Left-sided central line remains in place. No pneumothorax. Patchy airspace disease appears minimally progressive particularly at the lung bases. No overt pulmonary edema. No ectopic air or large pleural effusion. XR/XR chest 1V IMPRESSION: Satisfactory placement of NG tube as above. Mildly progressive bibasilar airspace disease.
--- NOTE | 2020-08-11 | US_ITS ---
EXAMINATION: US RETROPERITONEAL LIMITED (RENAL ONLY) CLINICAL INFORMATION: Pyelonephritis. COMPARISON: None. TECHNIQUE: Routine grayscale imaging of kidneys was performed. FINDINGS: RIGHT KIDNEY: 11.1 x 5.1 x 6.4 cm (SAG x AP x TRV). The kidney is normal in size, contour, and echogenicity. Renal cortical thickness is normal. No calculi or focal parenchymal lesions. No hydronephrosis. There are few anechoic cysts. 1. Upper pole cyst measures 1.5 x 1.0 x 1.3 cm. 2. Lower pole cyst measures 1.1 x 1.0 x 0.7 cm. 3. Upper pole cyst measures 1.2 x 1.0 x 1.1 cm. LEFT KIDNEY: 8.9 x 4.3 x 3.8 cm (SAG x AP x TRV). The kidney is normal in size, contour, and echogenicity. Renal cortical thickness is normal. No calculi or focal parenchymal lesions. There is significant hydronephrosis with hydroureter. Incidentally noted is free fluid inferior to the right hepatic lobe in Matthews's pouch. US/US renal BI IMPRESSION: Significant left hydroureteronephrosis but no obstructive etiology seen. Multiple right renal cyst. Incidental finding of free fluid in Matthews's pouch.
--- NOTE | 2020-08-11 | XR_ITS ---
EXAMINATION: XR CHEST CLINICAL INFORMATION: Endotracheal tube placement COMPARISON: 08/10/2020 TECHNIQUE: Frontal view of the chest was obtained. There are 3 separate acquisitions, performed at 4:40 AM, 4:56 AM, and 5:05 AM. FINDINGS: On the final image, the endotracheal tube terminates approximately 4 cm above the darinel. On the final image, there is a left subclavian central venous catheter placed which terminates near the cavoatrial junction. (On the second image, there is a wire in place along the eventual course of the subclavian central line.) Cardiac leads overlie the chest. The lungs are well expanded. Minimal atelectasis at the lung bases. There may be a tiny right pleural effusion. No pneumothorax. No dense consolidation. The cardiomediastinal silhouette is unchanged. XR/XR chest 1V IMPRESSION: Endotracheal tube terminates 4 cm above the darinel. Left subclavian central venous catheter placed, terminating near the cavoatrial junction. No pneumothorax.
--- NOTE | 2020-08-11 00:56 | ECG_ITS ---
Test Reason : rhythm change Blood Pressure : / mmHG Vent. Rate : 174 BPM Atrial Rate : 178 BPM P-R Int : 000 ms QRS Dur : 134 ms QT Int : 254 ms P-R-T Axes : 000 038 131 degrees QTc Int : 432 ms Poor data quality Atrial fibrillation with rapid ventricular response Right bundle branch block Nonspecific ST abnormality Abnormal ECG When compared with ECG of 18-APR-2020 22:01, Atrial fibrillation has replaced Sinus rhythm Vent. rate has increased BY [address] now depressed in Anterior leads Nonspecific T wave abnormality now evident in Inferior leads T wave inversion now evident in Anterolateral leads Referred By: Luna Morel Electronically Signed By:JILLIAN MONTE MD
[2020-08-11] MEDS: Acetaminophen Supp 650 MG SUPP.RECT PR (02:05)
[2020-08-11] MEDS: Lactated Ringers 1,000 ML 1000 ML IVCONT (03:08)
[2020-08-11 03:44] LABS: Pt Ventilation O2% 100%
[2020-08-11 03:45] LABS: ABG PCO2 35 mmhg (32-45); Base Excess ABG -12.6; Blood Gas Serial # 5414; HCO3 ABG 14 mmol/l (22-26); Oxygen Saturation ABG 96.1 %; PO2 ABG 106 mmhg (83-108); pH ABG 7.22 (7.35-7.45)
--- NOTE | 2020-08-11 04:25 | PM.EVENT ---
Event Note Event Note: overnight the patient became hypoxic to 85%, with some respiratory distress. ABGs obtained as follow 7.05/05//. chemistry obtain showing bicarb of 5, troponin elevated to 309 and lactate is 11.3. Focus assessment performed at 0100. Patient was lethargic, does not respond to commands. Lungs with rhonchi throughout. Satting 90-92% on 3L via NC , ST to afib to 100- 120s, S1-S2 present. No M/R/G. Normal capillary refill, pulses present in all extremities, abdomen soft, skin warm and dry. Daughter Nancy Queen was contacted and informed of patient change in status, will like patient full code. Chest xray obtained. Attending Dr Morel in and performed bedside echo. with very poor EF estimate, anterior wall WI and significant fluid overload. Patient was intubated (see intubation note). Fluid bolus contraindicated due to patient is in cardiogenic shock with significant degree of heart failure
--- NOTE | 2020-08-11 04:56 | W.PM.CCHP ---
Procedures Abscess I/D Additional comments: Patient over seen in supervised by me as the attending <Luna Morel MD - Last Filed: 10/16/20 13:12> Intubation Intubation Comments: Patient with acute respiratory distress, refractory to high flow, requiring emergent intubation for hypoxemia. Patient intubated with 7 cuffed ET tube under glide scope guidance with visualization of vocal cords, without immediate complications. ET tube position verified with Chest XRAY. <Jethro Morgan - Last Filed: 08/11/20 04:58> Consent for Procedure: Emergent-no informed consent obtained <Jethro Morgan - Last Filed: 08/11/20 04:58> Sedative: propofol <Jethro Morgan - Last Filed: 08/11/20 04:58> Mg given: 30 <Jethro Morgan - Last Filed: 08/11/20 04:58> Laryngoscope: fiber optic video scope <Jethro Morgan - Last Filed: 08/11/20 04:58> ET tube size: 7 <Jethro Morgan - Last Filed: 08/11/20 04:58> ET tube uncuffed: No <Jethro Morgan - Last Filed: 08/11/20 04:58> Tube secured depth (cm): 22 <Jethro Morgan - Last Filed: 08/11/20 04:58> Tube secured location: lips <Jethro Morgan - Last Filed: 08/11/20 04:58> Tube placement confirmation: visualized tube passing through cords, equal breath sounds bilaterally and confirmation by capnometry <Jethro Morgan - Last Filed: 08/11/20 04:58> Intubation complications: none <Jethro Morgan - Last Filed: 08/11/20 04:58>
[2020-08-11 05:09] LABS: Hematocrit 29.5 % (42-52); Hemoglobin 8.6 g/dl (14.0-18.0); Mean Corpuscular HGB Conc 29.2 g/dl (31.0-36.0); Mean Corpuscular Hemoglobin 23.1 pg (27.0-33.0); Mean Corpuscular Volume 79.1 fL (80-98); Mean Platelet Volume 10.5 fL (9.4-12.4); NRBC Pct Auto 0.4 /100WBC (0.0-0.2); Platelet Count 404 X10*3/uL (160-400); Red Blood Count 3.73 X10*6/uL (4.60-5.80); Red Cell Distribution Width 17.4 % (11.0-16.0); WBC ABN SCTR FOR CBC 1
[2020-08-11] MEDS: propofoL 200 MG/20 ML VIAL 30 MG IVPUSH (05:20)
[2020-08-11 05:30] LABS: White Blood Count 9.4 X10*3/uL (4.8-10.8)
[2020-08-11 05:33] LABS: Band Neutrophils Percent 24 % (3-5); Lymphocytes Absolute Manual 0.3 X10*3/uL (0.6-4.8); Lymphocytes Percent Manual 3 % (20-40); Monocytes Absolute Manual 0.8 X10*3/uL (0.0-1.2); Monocytes Percent Manual 8 % (2-11); Neutrophils Absolute Manual 8.4 X10*3/uL (2.2-7.9); Neutrophils Percent Manual 65 % (45-73); Nucleated Red Blood Cells 1 /100WBC (0-0)
[2020-08-11 05:37] LABS: RBC Morphology NOTED
[2020-08-11 05:38] LABS: Acanthocytes 3+; Hypochromasia 1+; Microcytosis 1+; Ovalocytes 1+; Platelet Estimate NORMAL (NORMAL); Platelet Morphology Comment NORMAL
[2020-08-11 05:45] LABS: Lactic Acid 1.1 mmol/L (0.5-2.0)
--- NOTE | 2020-08-11 05:45 | ECG_ITS ---
Test Reason : atrial fibrillation Blood Pressure : / mmHG Vent. Rate : 057 BPM Atrial Rate : 057 BPM P-R Int : 164 ms QRS Dur : 090 ms QT Int : 412 ms P-R-T Axes : 048 -39 -04 degrees QTc Int : 401 ms Sinus bradycardia with marked sinus arrhythmia Left anterior fascicular block Nonspecific T wave abnormality Abnormal ECG When compared with ECG of 11-AUG-2020 00:00, Sinus rhythm has replaced Atrial fibrillation Vent. rate has decreased BY 117 BPM Right bundle branch block is no longer Present Referred By: Luna Morel Electronically Signed By:JILLIAN MONTE MD
[2020-08-11] MEDS: Dextrose 5 % and 0.45 % NaCl 1,000 ML 1000 ML IVCONT ×2 (05:48→06:17)
[2020-08-11] MEDS: propofoL 1,000 MG/100 ML VIAL 3.23 MG IVCONT (05:50)
[2020-08-11 05:51] LABS: Anion Gap 26 (12-20); Blood Urea Nitrogen > 125 mg/dL (9-16); Calcium 7.5 mg/dL (8.4-10.2); Carbon Dioxide 13 mmol/L (22-29); Chloride 116 mmol/L (96-108); Estimated Glomerular Filt Rate 9; Glucose Random 99 mg/dL (60-115); Magnesium 2.3 mg/dL (1.6-2.6); Potassium 4.7 mmol/l (3.3-5.1); Sodium 150 mmol/L (135-145)
[2020-08-11 06:01] LABS: Anion Gap 25 (12-20); Calcium 7.5 mg/dL (8.4-10.2); Carbon Dioxide 14 mmol/L (22-29); Chloride 116 mmol/L (96-108); Creatinine Clr Calc Pharmacy 7.1; Estimated Glomerular Filt Rate 9; Glucose Fasting 100 mg/dL (60-99); Potassium 4.7 mmol/l (3.3-5.1); Sodium 150 mmol/L (135-145)
--- NOTE | 2020-08-11 06:13 | W.PM.CCCN ---
History of Present Illness Data of Consult Service Date: 08/11/20 Primary Care Provider: Mitchell Atkins MD Review of Systems Neurologic: Reports confusion Psychiatric: Psychiatric: Reports confusion PMFSH Past Medical History Medical History Chronic kidney disease (CKD) Dementia History of CVA (cerebrovascular accident) Hypertension Urinary retention Family History Family history: reviewed and not pertinent Social History Social History Household Members: Unknown / Unable to assess and Other Housing: Longterm Alcohol intake: unknown Smoking Status: Unknown if ever smoked service: No Meds Allergies Allergy/AdvReac Type Severity Reaction Status Date / Time lisinopril [LISINOPRIL] Allergy Severe angioedema Verified 08/10/20 01:53 Home Medications Medication Instructions Recorded Confirmed Type amlodipine 1 tab PO DAILY 08/09/20 08/09/20 History atorvastatin 1 tab PO DAILY 08/09/20 08/09/20 History clopidogrel 1 tab PO DAILY 08/09/20 08/09/20 History donepezil 1 tab PO DAILY 08/09/20 08/09/20 History hydralazine 20 mg PO DAILY@199908/09/20 08/09/20 History metoprolol tartrate 1 tab PO BID 08/09/20 08/09/20 History omeprazole 1 cap PO DAILY 08/09/20 08/09/20 History Physical Exam Vital Signs: Vital Signs: Vital Signs Temp Pulse Resp BP Pulse Ox 08/11/20 05:00 87 16 08/11/20 03:37 100.4 F 08/11/20 03:29 35 H 08/11/20 03:07 102 H 18 100/54 L 08/11/20 00:29 100.2 F 08/11/20 00:05 22 H 08/10/20 23:20 86 22 H 107/57 L 100 08/10/20 22:34 100.4 F 95 136/60 94 08/10/20 21:54 82 L 08/10/20 21:40 35 H 08/10/20 20:51 100.5 F H 08/10/20 20:12 111/53 L 08/10/20 19:32 102.3 F H 100 26 H 87/50 L 96 08/10/20 15:09 98.0 F 101 H 20 93/59 L 96 08/10/20 10:52 97.7 F 98 20 119/62 97 08/10/20 07:30 99.2 F 08/10/20 07:22 96 20 122/63 93 Body Mass Index 21.7 Const: General: confusion Orientation/consciousness: confusion Neuro: General: confusion Results Labs CBC & Chem 7: 08/22/20 05:58 08/22/20 05:58 Labs: Short CBC 08/10/20 08/11/20 Range/Units 05:24 04:35 WBC 7.0 9.4 (4.8-10.8) X10*3/uL Hgb 9.2 L 8.6 L (14.0-18.0) g/dl Hct 32.1 L 29.5 L (42-52) % Plt Count 370 404 H (160-400) X10*3/uL BMP 08/10/20 08/10/20 08/11/20 05:24 11:53 04:35 Sodium 150 H 150 H 150 H Potassium 4.8 4.7 Chloride 117 H 116 H Carbon Dioxide 11 L 14 L BUN 123 H* > 125 H* Creatinine 5.62 H* 5.98 H* Calcium 7.8 L 7.5 L 08/11/20 04:35 Sodium 150 H Potassium 4.7 Chloride 116 H Carbon Dioxide 13 L BUN > 125 H* Creatinine 6.02 H* Calcium 7.5 L Microbiology Microbiology Results: Microbiology 08/09/20 17:45 Blood - Venous Blood Culture - Preliminary No growth after 24 hours. 08/09/20 17:28 Blood - Venous Blood Culture - Preliminary No growth after 24 hours. 08/09/20 21:00 Urine clean catch - Clean Catch Midstream Urine Culture - Preliminary Assessment and Plan (1) Anemia: Status: Acute (2) Dementia: Status: Acute (3) Chronic kidney disease (CKD): Status: Acute (4) Acute hypoxemic respiratory failure: Status: Acute (5) Cardiogenic shock: Status: Acute In for emergent intubation and bedside echo to help determine stabilizing mechanism
[2020-08-11] MEDS: vancomycin HCL 1,000 MG in 0.9 % Sodium Chloride 250 ML 180 MG IV (06:16)
--- NOTE | 2020-08-11 07:19 | PC.NURSE ---
[place] [facility] [place] 15L/100% NRB. BEDSIDE ECHO DONE. INTUBATED UPON ARRIVAL WITH ETT#7.0, 24 MEAGAN. TLC TO L SC INSERTED WITH NO COMPLICATIONS. PT SEDATE ON PROPOFOL. 2L IVF BOLUS GIVEN. CVP INITIATED, CURRENTLY 8. BP DEPENDENT UPON LEVOPHED/VASOPRESSIN. ON PCV, F18, PI 15, VT 600s, PEEP 5, FIO2 100%. URINE, STOOL, AND SPUTUM CULTURE SENT. MEDICATED PER EMAR. STAGE 1 TO COCCYX. PT INCT OF LOOSE STOOL. RESTRAINTS IN PLACE FOR PT SAFETY, REACHING FOR LINES/TUBES.
[2020-08-11] MEDS: Metoprolol Tartrate 25 MG TABLET PO (08:04)
[2020-08-11] MEDS: Clopidogrel Bisulfate 75 MG TABLET PO (08:04)
[2020-08-11] MEDS: 0.9 % Sodium Chloride Flush 3 ML SYRINGE IVFLUSH ×2 (08:04→15:07)
[2020-08-11] MEDS: metroNIDAZOLE 500 MG TABLET PO (08:04)
[2020-08-11 08:35] LABS: CDIFF Ag Negative (Negative); CDIFF Internal ctrl Dots and bkg OK (V); CDiff Toxin Negative (Negative)
[2020-08-11] MEDS: Donepezil HCl 10 MG TABLET PO (08:38)
[2020-08-11] MEDS: Dextrose 5 % and 0.45 % NaCl 1,000 ML 80 ML IVCONT (08:41)
[2020-08-11 08:45] LABS: Blood Urea Nitrogen 128 mg/dL (9-16)
[2020-08-11 09:58] LABS: Base Excess VBG -11.8 mmol/L; HCO3 VBG 15 mmol/L; Oxygen Saturation VBG 68.5 %; PCO2 VBG 38 mmhg; PO2 VBG 41 mmhg; pH VBG 7.22 (7.32-7.43)
--- NOTE | 2020-08-11 10:20 | MHC.CLN ---
PT IS MILDLY MALNOURISHED RECOMMEND TF NEPRO AT MAX GOAL RATE 35CC/HR WITH 120CC FREE WATER FLUSHES Q 6HRS TO PROVIDE 1512KCALS (1682KCALS WITH SEDATION; 31KCALS/KG), 68G PROTEIN (1.3G/KG), 1819CC TOTAL WATER FROM FORMULA AND FLUSHES (34CC/KG) MONITOR LYTES, RESIDUALS AND TOLERANCE SEE ALSO NUTRITION ASSESSMENT
[2020-08-11 10:25] LABS: Anion Gap 21 (12-20); Carbon Dioxide 14 mmol/L (22-29); Chloride 112 mmol/L (96-108); Sodium 143 mmol/L (135-145)
--- NOTE | 2020-08-11 10:39 | PM.PNNEP ---
Subjective Subjective Interval history: Transfered to ICU Intubated On Pressors Physical Exam Vital Signs: Vital Signs: Vital Signs Temp Pulse Resp BP Pulse Ox 08/11/20 09:58 98.2 F 63 22 H 119/64 96 08/11/20 08:50 97.9 F 57 22 H 97/62 95 08/11/20 08:04 65 124/64 08/11/20 08:00 97.7 F 63 22 H 124/64 97 08/11/20 07:01 72 124/55 L 08/11/20 07:00 72 25 H 124/55 L 100 08/11/20 06:00 70 26 H 118/62 08/11/20 05:00 87 16 08/11/20 03:37 100.4 F 08/11/20 03:29 35 H 08/11/20 03:07 102 H 18 100/54 L 08/11/20 00:29 100.2 F 08/11/20 00:05 22 H 08/10/20 23:20 86 22 H 107/57 L 100 08/10/20 22:34 100.4 F 95 136/60 94 08/10/20 21:54 82 L 08/10/20 21:40 35 H 08/10/20 20:51 100.5 F H 08/10/20 20:12 111/53 L 08/10/20 19:32 102.3 F H 100 26 H 87/50 L 96 08/10/20 15:09 98.0 F 101 H 20 93/59 L 96 08/10/20 10:52 97.7 F 98 20 119/62 97 Body Mass Index 21.7 Const: General: ill appearing Resp: Auscultation: rhonchi Cardio: Heart sounds: no rubs Neuro: Motor exam (neuro): No Asterixis during motor activity present Assessment & Plan Assessment and plan (1) Acute kidney injury superimposed on CKD: Problem details: Most likely has ATN Non oliguric No indication for dialysis yet Keep I > O and SBP > 100 Status: Acute (2) Hypernatremia: Problem details: Due to free water deficit Continue hypotonic fluids to correct pNa Goal Na <145 in 24 hours Status: Acute
[2020-08-11 10:40] LABS: Blood Urea Nitrogen 124 mg/dL (9-16); Creatinine Clr Calc Pharmacy 7.5; Estimated Glomerular Filt Rate 10; Glucose Random 287 mg/dL (60-115)
--- NOTE | 2020-08-11 10:45 | PC.NURSE ---
At start of shift patient stiffening with position changes, care, and o2 sats dropping to mid 80s. Increased Propofol to 20 mcg/kg/min with good effect.
--- NOTE | 2020-08-11 10:54 | PC.NURSE ---
Patient's bellamy output is cloudy with sediment. Inserted new 16 F bellamy with core temp. Patient incontinent of liquid, brown, foul smelling stool. C.diff previously collected, test results negative. Rectal tube inserted without difficulty and draining stool. Full bed bath given.
--- NOTE | 2020-08-11 11:01 | PC.NURSE ---
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 Non-blanchable redness to coccyx noted. No open areas. High zinc content barrier cream applied. Patient on air loss bed with repositioning q2h.
[2020-08-11] MEDS: Lactated Ringers 1,000 ML 80 ML IVCONT ×2 (11:34→23:07)
[2020-08-11] MEDS: Heparin Sodium,Porcine 5,000 UNIT/ML VIAL 5000 UNIT SUBCUT ×2 (11:34→21:02)
--- NOTE | 2020-08-11 12:21 | MHC.SLORD ---
[address] [address] Speech & Hearing [phone] Name: Diallo Brady Date of : 1935 Age: 84 Date of Registration: 08/09/20 Pt was not seen this date for dysphagia therapy, as he was transferred to ICU and intubated. Speech Language Pathology Order Status: Patient Not Seen
--- NOTE | 2020-08-11 12:39 | MHC.CM.PN ---
pt moved to [facility] from icu cm will follow for return to [facility]
[2020-08-11] MEDS: Chlorhexidine Gluc Oral Rinse 15 ML MOUTHWASH BUCCAL ×2 (15:07→21:02)
[2020-08-11] MEDS: propofoL 1,000 MG/100 ML VIAL 6.46 MG IVCONT (15:32)
[2020-08-11 19:53] LABS: Anion Gap 21 (12-20); Blood Urea Nitrogen 121 mg/dL (9-16); Calcium 7.3 mg/dL (8.4-10.2); Carbon Dioxide 13 mmol/L (22-29); Chloride 113 mmol/L (96-108); Creatinine Clr Calc Pharmacy 7.8; Estimated Glomerular Filt Rate 10; Glucose Random 150 mg/dL (60-115); Potassium 3.4 mmol/l (3.3-5.1); Sodium 144 mmol/L (135-145)
[2020-08-12] VITALS (34 sets, daily range): BP systolic 96–140; BP diastolic 49–80; PULSE 56–87; RESP 20–31; TEMP 36.9–38.1; O2SAT 93–99
[2020-08-12] MEDS: Sodium Bicarbonate 8.4% 50 MEQ in Dextrose 5 % 950 ML 100 MEQ IVPUSH (04:50)
[2020-08-12] MEDS: Potassium Chloride Packet 20 MEQ PACKET OG-TUBE (05:06)
[2020-08-12 05:50] LABS: Hematocrit 22.4 % (42-52); Mean Corpuscular HGB Conc 30.4 g/dl (31.0-36.0); Mean Corpuscular Volume 75.7 fL (80-98); Mean Platelet Volume 10.6 fL (9.4-12.4); Platelet Count 295 X10*3/uL (160-400); Red Blood Count 2.96 X10*6/uL (4.60-5.80); Red Cell Distribution Width 17.2 % (11.0-16.0); White Blood Count 10.9 X10*3/uL (4.8-10.8)
[2020-08-12 06:05] LABS: Hemoglobin 6.8 g/dl (14.0-18.0)
[2020-08-12 06:19] LABS: Base Excess VBG -8.5 mmol/L; Blood Gas Serial # 5414; HCO3 VBG 16 mmol/L; Oxygen Saturation VBG 62.7 %; PCO2 VBG 31 mmhg; PO2 VBG 34 mmhg; pH VBG 7.35 (7.32-7.43)
[2020-08-12] MEDS: propofoL 1,000 MG/100 ML VIAL 6.46 MG IVCONT ×2 (06:19→17:34)
[2020-08-12 06:22] LABS: Band Neutrophils Percent 5 % (3-5); Eosinophils Absolute Manual 0.5 X10*3/UL (0.0-0.8); Eosinophils Percent Manual 5 % (0-4); Lymphocytes Percent Manual 9 % (20-40); Monocytes Absolute Manual 0.3 X10*3/uL (0.0-1.2); Monocytes Percent Manual 3 % (2-11); Neutrophils Percent Manual 78 % (45-73)
[2020-08-12 06:23] LABS: Acanthocytes 3+; Hypochromasia 1+; Microcytosis 1+; Ovalocytes 1+; RBC Morphology NOTED; Toxic Vacuolation PRESENT
[2020-08-12 06:24] LABS: Platelet Estimate NORMAL (NORMAL); Platelet Morphology Comment NORMAL
[2020-08-12 06:32] LABS: Albumin Level 2.2 g/dL (3.5-5.0); Anion Gap 21 (12-20); Calcium 7.1 mg/dL (8.4-10.2); Carbon Dioxide 13 mmol/L (22-29); Chloride 116 mmol/L (96-108); Creatinine Clr Calc Pharmacy 8.2; Estimated Glomerular Filt Rate 11; Glucose Random 134 mg/dL (60-115); Potassium 3.3 mmol/l (3.3-5.1); Sodium 147 mmol/L (135-145)
[2020-08-12 06:48] LABS: Blood Urea Nitrogen 121 mg/dL (9-16)
[2020-08-12] MEDS: Chlorhexidine Gluc Oral Rinse 15 ML MOUTHWASH BUCCAL ×3 (07:40→20:16)
[2020-08-12] MEDS: 0.9 % Sodium Chloride Flush 3 ML SYRINGE IVFLUSH ×2 (07:40→15:43)
[2020-08-12 08:31] LABS: OBS Int Ctl Valid YES; OBS1 NEG (NEG)
--- NOTE | 2020-08-12 09:16 | MHC.SLORD ---
[address] [address] Speech & Hearing [phone] HELP DESK TEAM LEADER spoke with staff from ICU. Patient is still intubated. Dysphagia evaluation pending extubation (24-48 hours post-extubation). HELP DESK TEAM LEADER will continue to follow. Name: Diallo Brady Date of : 1935 Age: 84 Date of Registration: 08/09/20 Speech Language Pathology Order Status: Patient Not Seen
--- NOTE | 2020-08-12 10:25 | PM.PNNEP ---
Subjective Subjective Interval history: Transfered to ICU Intubated On Pressors UO noted Physical Exam Vital Signs: Vital Signs: Vital Signs Temp Pulse Resp BP Pulse Ox 08/12/20 09:55 99.5 F 77 22 H 115/57 L 08/12/20 09:51 99.5 F 79 24 H 115/57 L 93 08/12/20 09:39 99.5 F 83 23 H 132/66 08/12/20 09:00 99.5 F 73 24 H 115/57 L 94 08/12/20 07:49 99.5 F 66 22 H 110/57 L 97 08/12/20 07:00 99.5 F 58 21 H 114/58 L 96 08/12/20 06:00 99.5 F 62 21 H 127/73 96 08/12/20 05:00 63 21 H 140/66 H 95 08/12/20 04:00 99.5 F 60 20 123/63 96 08/12/20 03:00 56 20 132/64 96 08/12/20 02:00 60 22 H 126/63 97 08/12/20 01:00 65 21 H 131/80 95 08/12/20 00:00 99.1 F 66 20 132/64 99 08/11/20 23:00 65 23 H 141/67 H 98 08/11/20 22:00 62 22 H 145/67 H 98 08/11/20 21:00 64 23 H 120/62 95 08/11/20 20:00 100.4 F 67 24 H 135/66 94 08/11/20 19:00 66 23 H 151/68 H 98 08/11/20 18:00 60 23 H 139/67 96 08/11/20 17:00 63 23 H 144/63 H 96 08/11/20 16:00 62 22 H 137/74 98 08/11/20 15:00 63 22 H 127/64 98 08/11/20 14:00 58 23 H 128/61 99 08/11/20 13:00 99.0 F 60 22 H 110/58 L 95 08/11/20 12:00 98.8 F 61 23 H 121/68 95 08/11/20 11:00 60 23 H 122/63 96 Body Mass Index 21.7 Const: General: ill appearing Resp: Auscultation: rhonchi Cardio: Heart sounds: no rubs Neuro: Motor exam (neuro): No Asterixis during motor activity present Assessment & Plan Assessment and plan (1) Acute kidney injury superimposed on CKD: Problem details: Most likely has ATN Non oliguric No indication for dialysis yet Keep I > O and SBP > 100 Status: Acute (2) Hypernatremia: Problem details: Due to free water deficit Continue hypotonic fluids to correct pNa Goal Na <145 in 24 hours Status: Acute (3) Anemia: Status: Acute (4) Metabolic acidosis: Status: Acute
[2020-08-12 11:39] LABS: CDIFF Ag Negative (Negative); CDiff Toxin Negative (Negative)
[2020-08-12 11:40] LABS: CDIFF Internal ctrl Dots and bkg OK (V)
--- NOTE | 2020-08-12 12:07 | PM.UROCN ---
History of Present Illness Consult details Consult date: 08/12/20 Reason for consult: other ( urosepsis) Narrative: This is a 84-year-old male. Progressive dementia, prior prostate cancer with treatment via radiation. 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 Managed with a indwelling Salas catheter chronically. Increasing lethargy and leakage around catheter. Found to be persistently positive in his urine culture. Had been discharged July 06. Readmitted to ICU with urosepsis. On imaging has significant left-sided hydronephrosis with right-sided renal cysts. Creatinine elevated to 5.4 indicative of acute on chronic renal insult. When properly hydrated could consider renogram for differential renal function. Dear would be hesitancy to place a left ureteric stent due to increased risk of ongoing pyelonephritis. Review of Systems Neurologic: Reports confusion Psychiatric: Psychiatric: Reports confusion [facility] Past Medical History Medical History Chronic kidney disease (CKD) Dementia History of CVA (cerebrovascular accident) Hypertension Urinary retention Family History Family history: reviewed and not pertinent Social History Social History Household Members: Unknown / Unable to assess and Other Housing: Long-Term Alcohol intake: unknown Smoking Status: Unknown if ever smoked Use of substances other than those prescribed or required for medical reasons: Unable to respond Currently Displaying Signs/Symptoms of Drug Intoxication Withdrawal: No Advance Directives: No Advance Directives Information Provided: No Do you have thoughts of harming others: None Do you have a plan to hurt others: No Plan Recently lost weight without trying: Unsure service: No Meds Allergies Allergy/AdvReac Type Severity Reaction Status Date / Time lisinopril [LISINOPRIL] Allergy Severe angioedema Verified 08/10/20 01:53 Home Medications Medication Instructions Recorded Confirmed Type amlodipine 1 tab PO DAILY 08/09/20 08/09/20 History atorvastatin 1 tab PO DAILY 08/09/20 08/09/20 History cephalexin 1 cap PO BID 08/09/20 08/09/20 History cephalexin 1 cap PO BID 08/09/20 08/09/20 History clopidogrel 1 tab PO DAILY 08/09/20 08/09/20 History divalproex 250 mg PO BID 08/09/20 08/09/20 History donepezil 1 tab PO DAILY 08/09/20 08/09/20 History doxycycline hyclate 1 cap PO BID 08/09/20 08/09/20 History haloperidol lactate 1 mg PO BID 08/09/20 08/09/20 History hydralazine 20 mg PO DAILY@199908/09/20 08/09/20 History lorazepam 0.5 mg PO Q4-6H PRN 08/09/20 08/09/20 History metoprolol tartrate 1 tab PO BID 08/09/20 08/09/20 History olanzapine 1 tab PO BEDTIME 08/09/20 08/09/20 History omeprazole 1 cap PO DAILY 08/09/20 08/09/20 History sertraline 1 tab PO DAILY 08/09/20 08/09/20 History Physical Exam Vital Signs: Vital Signs: Vital Signs Temp Pulse Resp BP Pulse Ox 08/12/20 11:50 99.3 F 80 27 H 120/49 L 08/12/20 11:00 99.5 F 87 26 H 119/70 96 08/12/20 09:55 99.5 F 77 22 H 115/57 L 08/12/20 09:51 99.5 F 79 24 H 115/57 L 93 08/12/20 09:39 99.5 F 83 23 H 132/66 08/12/20 09:00 99.5 F 73 24 H 115/57 L 94 08/12/20 07:49 99.5 F 66 22 H 110/57 L 97 08/12/20 07:00 99.5 F 58 21 H 114/58 L 96 08/12/20 06:00 99.5 F 62 21 H 127/73 96 08/12/20 05:00 63 21 H 140/66 H 95 08/12/20 04:00 99.5 F 60 20 123/63 96 08/12/20 03:00 56 20 132/64 96 08/12/20 02:00 60 22 H 126/63 97 08/12/20 01:00 65 21 H 131/80 95 08/12/20 00:00 99.1 F 66 20 132/64 99 08/11/20 23:00 65 23 H 141/67 H 98 08/11/20 22:00 62 22 H 145/67 H 98 08/11/20 21:00 64 23 H 120/62 95 08/11/20 20:00 100.4 F 67 24 H 135/66 94 08/11/20 19:00 66 23 H 151/68 H 98 08/11/20 18:00 60 23 H 139/67 96 08/11/20 17:00 63 23 H 144/63 H 96 08/11/20 16:00 62 22 H 137/74 98 08/11/20 15:00 63 22 H 127/64 98 08/11/20 14:00 58 23 H 128/61 99 08/11/20 13:00 99.0 F 60 22 H 110/58 L 95 Body Mass Index 21.7 Const: Other: Ventilated patient General: confusion Nutritional Appearance: average body habitus Orientation/consciousness: confusion HENMT: Head: Yes normal to inspection Eyes: General: appearance normal, both eyes and all related structures Chest: Chest palpation & inspection: normal inspection of the chest Resp: Effort & Inspection: normal respiratory effort Cardio: Rate: regular rate GI: Inspection: Yes normal to inspection Skin: Hair: normal Neuro: General: confusion Extrem: General: Yes normal to inspection Results Labs Result diagrams: 08/12/20 05:21 08/12/20 05:21 Labs: Abnormal lab results 08/11/20 08/12/20 08/12/20 Range/Units 18:52 05:21 05:21 WBC 10.9 H (4.8-10.8) X10*3/uL RBC 2.96 L D (4.60-5.80) X10*6/uL Hgb 6.8 L* D (14.0-18.0) g/dl Hct 22.4 L D (42-52) % MCV 75.7 L (80-98) fL MCH 23.0 L (27.0-33.0) pg MCHC 30.4 L (31.0-36.0) g/dl RDW 17.2 H (11.0-16.0) % Neutrophils % (Manual) 78 H (45-73) % Lymphocytes % (Manual) 9 L (20-40) % Eosinophils % (Manual) 5 H (0-4) % Abs Neuts (Manual) 9.0 H (2.2-7.9) X10*3/uL Sodium 147 H (135-145) mmol/L Chloride 113 H 116 H (96-108) mmol/L Carbon Dioxide 13 L 13 L (22-29) mmol/L Anion Gap 21 H 21 H (12-20) BUN 121 H* 121 H* (9-16) mg/dL Creatinine 5.43 H* 5.14 H* (0.5-1.4) mg/dL Random Glucose 150 H D 134 H (60-115) mg/dL Calcium 7.3 L 7.1 L (8.4-10.2) mg/dL Phosphorus 6.0 H (2.7-4.5) mg/dL Albumin 2.2 L D (3.5-5.0) g/dL Crossmatch 08/12/20 Range/Units 07:34 WBC (4.8-10.8) X10*3/uL RBC (4.60-5.80) X10*6/uL Hgb (14.0-18.0) g/dl Hct (42-52) % MCV (80-98) fL MCH (27.0-33.0) pg MCHC (31.0-36.0) g/dl RDW (11.0-16.0) % Neutrophils % (Manual) (45-73) % Lymphocytes % (Manual) (20-40) % Eosinophils % (Manual) (0-4) % Abs Neuts (Manual) (2.2-7.9) X10*3/uL Sodium (135-145) mmol/L Chloride (96-108) mmol/L Carbon Dioxide (22-29) mmol/L Anion Gap (12-20) BUN (9-16) mg/dL Creatinine (0.5-1.4) mg/dL Random Glucose (60-115) mg/dL Calcium (8.4-10.2) mg/dL Phosphorus (2.7-4.5) mg/dL Albumin (3.5-5.0) g/dL Crossmatch See Detail Short CBC 08/12/20 Range/Units 05:21 WBC 10.9 H (4.8-10.8) X10*3/uL Hgb 6.8 L* D (14.0-18.0) g/dl Hct 22.4 L D (42-52) % Plt Count 295 D (160-400) X10*3/uL BMP 08/11/20 08/12/20 08/12/20 18:52 05:21 05:21 Sodium 144 147 H Cancelled Potassium 3.4 3.3 Cancelled Chloride 113 H 116 H Cancelled Carbon Dioxide 13 L 13 L Cancelled BUN 121 H* 121 H* Cancelled Creatinine 5.43 H* 5.14 H* Cancelled Calcium 7.3 L 7.1 L Cancelled Liver Function 08/12/20 Range/Units 05:21 Albumin 2.2 L D (3.5-5.0) g/dL Urine 08/09/20 Range/Units 20:28 Urine Color YELLOW Urine Appearance CLOUDY Urine pH 6.0 (5.0-8.0) Ur Specific [place] 1.025 (1.005-1.025) Urine Protein 2+ H (NEG-TRACE) MG/DL Urine Glucose (UA) NEG (NEG) MG/DL All other labs normal. imaging as described above. Left hydronephrosis with right renal cysts Assessment and Plan (1) Renal failure (ARF), acute on chronic: Qualifiers: Acute renal failure type: unspecified Chronic kidney disease stage: stage 4 (severe) Qualified Code(s): N17.9 - Acute kidney failure, unspecified; N18.4 - Chronic kidney disease, stage 4 (severe) Status: Acute (2) UTI (urinary tract infection): Problem details: not acute issue,colonized with MDR organisms Status: Acute Continue with gentle rehydration Will follow with creatinine Hesitant to place ureteric stent
[2020-08-12 12:30] LABS: Base Excess VBG -8.8 mmol/L; HCO3 VBG 16 mmol/L; Oxygen Saturation VBG 72.2 %; PCO2 VBG 31 mmhg; PO2 VBG 39 mmhg; pH VBG 7.33 (7.32-7.43)
[2020-08-12] MEDS: Heparin Sodium,Porcine 5,000 UNIT/ML VIAL 5000 UNIT SUBCUT (12:30)
[2020-08-12] MEDS: Clopidogrel Bisulfate 75 MG TABLET PO (12:31)
[2020-08-12] MEDS: Digoxin 0.5 MG/2 ML AMPUL 0.25 MG IVPUSH ×2 (12:35→18:34)
[2020-08-12 12:36] LABS: Hematocrit 24.7 % (42-52); Hemoglobin 7.8 g/dl (14.0-18.0); Mean Corpuscular HGB Conc 31.6 g/dl (31.0-36.0); Mean Corpuscular Hemoglobin 24.1 pg (27.0-33.0); Mean Corpuscular Volume 76.5 fL (80-98); Mean Platelet Volume 9.7 fL (9.4-12.4); NRBC Pct Auto 0.3 /100WBC (0.0-0.2); Platelet Count 252 X10*3/uL (160-400); Red Blood Count 3.23 X10*6/uL (4.60-5.80); Red Cell Distribution Width 18.4 % (11.0-16.0); White Blood Count 9.6 X10*3/uL (4.8-10.8)
--- NOTE | 2020-08-12 12:49 | MHC.CM.PN ---
in speaking to patient's contact center manager , olegario, she told me that the family does not want patient to return to [facility] [place] d/t reasons of dissatisfaction. they would like patient to go to [facility] in [place] as a first choice or [facility] in [place] as a second choice. refs. for this facilities has been made. cm to cont. to follow.
[2020-08-12 13:12] LABS: Band Neutrophils Percent 11 % (3-5); Eosinophils Absolute Manual 0.2 X10*3/UL (0.0-0.8); Eosinophils Percent Manual 2 % (0-4); Lymphocytes Absolute Manual 0.4 X10*3/uL (0.6-4.8); Lymphocytes Percent Manual 4 % (20-40); Macrocytosis 1+; Neutrophils Percent Manual 83 % (45-73); Ovalocytes 1+
[2020-08-12 13:13] LABS: Acanthocytes 1+; Hypochromasia 1+; Platelet Estimate NORMAL (NORMAL)
[2020-08-12 13:14] LABS: Platelet Morphology Comment NOTE
[2020-08-12 13:15] LABS: RBC Morphology NOTED
[2020-08-12 13:32] LABS: Anion Gap 19 (12-20); Carbon Dioxide 15 mmol/L (22-29); Chloride 115 mmol/L (96-108); Glucose Random 131 mg/dL (60-115); Sodium 146 mmol/L (135-145)
[2020-08-12 13:33] LABS: Blood Urea Nitrogen 124 mg/dL (9-16); Creatinine Clr Calc Pharmacy 8.7; Estimated Glomerular Filt Rate 12
--- NOTE | 2020-08-12 14:10 | MHC.CM.PN ---
i have spoken scooter cantu at [facility]. at this moment in time patient does not meet LTAC level of care. if things change c pt's condition making him LTAC level then she said to re send the ref. and she would review it. [facility] still has a ref. in at this time. cm cont. to follow.
[2020-08-12] MEDS: Potassium Chloride/H20 10 MEQ/100 ML PIGGYBACK 100 MEQ IV ×4 (14:31→17:51)
--- NOTE | 2020-08-12 17:17 | PM.CCPN ---
Subjective Subjective Date of Service: 08/12/20 Interval History: 84-year-old male with urosepsis and growing Pseudomonas in the urine now with resolving shock on minimal pressor support and actually off Levophed and on only 0.01 units/minute of vasopressin and for the sake of cardiac output because of his bradycardia I briefly added several hours of IV dobutamine at 4 mics per kilos per minute bringing his heart rate up to 90 and with that we started to restore 20-25 cc/hour of urine output and a subsequent creatinine came down in to the 4 range he then went into atrial flutter in at 2-1 block and we had a stop dobutamine and that resolved spontaneously and he was given 1 dose of digoxin to be present in case flutter returned and we wanted heart rate control my bedside echo had shown concentric left ventricular hypertrophy but preserved ejection fraction and no primary valve or pericardial disease he received without problem 1 unit of red cell transfusion bringing his hemoglobin to 7.8 and and is minute ventilatory requirements are now bowel 13 liters/minute and he is doing very comfortably well on the ventilator with minimal FiO2 of 30% again persistent diarrhea but but C diff negative both for toxin and antigen and his belly remained soft despite high gastric residuals and therefore feedings had to be held again and his potassium of 3.0 is currently being replaced with 40 mEq of potassium intravenously Physical Exam Vital Signs: Vital Signs: Vital Signs Temp Pulse Resp BP Pulse Ox 08/12/20 16:50 100.2 F 64 24 H 111/55 L 96 08/12/20 15:49 100.2 F 67 22 H 105/57 L 96 08/12/20 15:00 100.2 F 62 21 H 105/57 L 96 08/12/20 14:00 99.9 F 66 25 H 118/60 97 08/12/20 13:00 99.5 F 71 23 H 114/59 L 97 08/12/20 12:35 78 08/12/20 11:54 99.5 F 74 28 H 96/49 L 97 08/12/20 11:50 99.3 F 80 27 H 120/49 L 08/12/20 11:00 99.5 F 87 26 H 119/70 96 08/12/20 09:55 99.5 F 77 22 H 115/57 L 08/12/20 09:51 99.5 F 79 24 H 115/57 L 93 08/12/20 09:39 99.5 F 83 23 H 132/66 08/12/20 09:00 99.5 F 73 24 H 115/57 L 94 08/12/20 07:49 99.5 F 66 22 H 110/57 L 97 08/12/20 07:00 99.5 F 58 21 H 114/58 L 96 08/12/20 06:00 99.5 F 62 21 H 127/73 96 08/12/20 05:00 63 21 H 140/66 H 95 08/12/20 04:00 99.5 F 60 20 123/63 96 08/12/20 03:00 56 20 132/64 96 08/12/20 02:00 60 22 H 126/63 97 08/12/20 01:00 65 21 H 131/80 95 08/12/20 00:00 99.1 F 66 20 132/64 99 08/11/20 23:00 65 23 H 141/67 H 98 08/11/20 22:00 62 22 H 145/67 H 98 08/11/20 21:00 64 23 H 120/62 95 08/11/20 20:00 100.4 F 67 24 H 135/66 94 08/11/20 19:00 66 23 H 151/68 H 98 08/11/20 18:00 60 23 H 139/67 96 Body Mass Index 21.7 Const: Other: no distress and no significant respiratory effort CVP is running at 5 and neurologically he is intact and nonfocal skin is intact there is no decubiti I no wounds no acrocyanosis abdomen is soft apparently nontender with no organomegaly and no masses chest with minimal coarse breath sounds cardiac exam with a normal S1 and normal S2 with no gallops or murmurs Objective Data Labs CBC & Chem 7: 08/12/20 12:15 08/12/20 12:15 Labs: Laboratory Results - last 24 hr 08/11/20 08/12/20 08/12/20 18:52 05:21 05:21 WBC RBC Hgb Hct MCV MCH MCHC RDW Plt Count MPV Immature Gran % (Auto) Neut % (Auto) Lymph % (Auto) [place] % (Auto) Eos % (Auto) Baso % (Auto) Lymph # (Auto) [place] # (Auto) Eos # (Auto) Baso # (Auto) Abs Immat Gran (auto) Absolute Neuts (auto) Absolute Nucleated RBC Nucleated RBC % (auto) Neutrophils % (Manual) Band Neutrophils % Lymphocytes % (Manual) Monocytes % (Manual) Eosinophils % (Manual) Abs Neuts (Manual) Lymphocytes # (Manual) Monocytes # (Manual) Eosinophils # (Manual) Toxic Vacuolation Platelet Estimate Plt Morphology Comment RBC Morphology Hypochromasia Microcytosis Macrocytosis Ovalocytes Acanthocytes (Spur) VBG pH 7.35 VBG pCO2 31 VBG Oxygen Liters/Min TNP VBG pO2 34 VBG HCO3 16 VBG O2 Saturation 62.7 VBG Base Excess -8.5 Sodium 144 147 H Potassium 3.4 3.3 Chloride 113 H 116 H Carbon Dioxide 13 L 13 L Anion Gap 21 H 21 H BUN 121 H* 121 H* Creatinine 5.43 H* 5.14 H* Estim Creat Clear Calc 7.8 8.2 Estimated GFR 10 11 Random Glucose 150 H D 134 H Calcium 7.3 L 7.1 L Phosphorus 6.0 H Magnesium 2.0 Albumin 2.2 L D Stool Occult Blood C. difficile Toxin A&B C. difficile Antigen C. difficile Interpret Blood Type Antibody Screen Crossmatch 08/12/20 08/12/20 08/12/20 05:21 05:21 07:08 WBC 10.9 H RBC 2.96 L D Hgb 6.8 L* D Hct 22.4 L D MCV 75.7 L MCH 23.0 L MCHC 30.4 L RDW 17.2 H Plt Count 295 D MPV 10.6 Immature Gran % (Auto) Cancelled Neut % (Auto) Cancelled Lymph % (Auto) Cancelled [place] % (Auto) Cancelled Eos % (Auto) Cancelled Baso % (Auto) Cancelled Lymph # (Auto) Cancelled [place] # (Auto) Cancelled Eos # (Auto) Cancelled Baso # (Auto) Cancelled Abs Immat Gran (auto) Cancelled Absolute Neuts (auto) Cancelled Absolute Nucleated RBC 0.000 Nucleated RBC % (auto) 0.0 Neutrophils % (Manual) 78 H Band Neutrophils % 5 Lymphocytes % (Manual) 9 L Monocytes % (Manual) 3 Eosinophils % (Manual) 5 H Abs Neuts (Manual) 9.0 H Lymphocytes # (Manual) 1.0 Monocytes # (Manual) 0.3 Eosinophils # (Manual) 0.5 Toxic Vacuolation PRESENT Platelet Estimate NORMAL Plt Morphology Comment NORMAL RBC Morphology NOTED Hypochromasia 1+ Microcytosis 1+ Macrocytosis Ovalocytes 1+ Acanthocytes (Spur) 3+ VBG pH VBG pCO2 VBG Oxygen Liters/Min VBG pO2 VBG HCO3 VBG O2 Saturation VBG Base Excess Sodium Cancelled Potassium Cancelled Chloride Cancelled Carbon Dioxide Cancelled Anion Gap Cancelled BUN Cancelled Creatinine Cancelled Estim Creat Clear Calc Cancelled Estimated GFR Cancelled Random Glucose Cancelled Calcium Cancelled Phosphorus Magnesium Albumin Stool Occult Blood NEG C. difficile Toxin A&B C. difficile Antigen C. difficile Interpret Blood Type Antibody Screen Crossmatch 08/12/20 08/12/20 08/12/20 07:08 07:34 12:15 WBC 9.6 RBC 3.23 L Hgb 7.8 L Hct 24.7 L MCV 76.5 L MCH 24.1 L MCHC 31.6 RDW 18.4 H Plt Count 252 MPV 9.7 Immature Gran % (Auto) Cancelled Neut % (Auto) Cancelled Lymph % (Auto) Cancelled [place] % (Auto) Cancelled Eos % (Auto) Cancelled Baso % (Auto) Cancelled Lymph # (Auto) Cancelled [place] # (Auto) Cancelled Eos # (Auto) Cancelled Baso # (Auto) Cancelled Abs Immat Gran (auto) Cancelled Absolute Neuts (auto) Cancelled Absolute Nucleated RBC 0.030 H Nucleated RBC % (auto) 0.3 H Neutrophils % (Manual) 83 H Band Neutrophils % 11 H Lymphocytes % (Manual) 4 L Monocytes % (Manual) Eosinophils % (Manual) 2 Abs Neuts (Manual) 9.0 H Lymphocytes # (Manual) 0.4 L Monocytes # (Manual) Eosinophils # (Manual) 0.2 Toxic Vacuolation Platelet Estimate NORMAL Plt Morphology Comment NOTE RBC Morphology NOTED Hypochromasia 1+ Microcytosis Macrocytosis 1+ Ovalocytes 1+ Acanthocytes (Spur) 1+ VBG pH VBG pCO2 VBG Oxygen Liters/Min VBG pO2 VBG HCO3 VBG O2 Saturation VBG Base Excess Sodium Potassium Chloride Carbon Dioxide Anion Gap BUN Creatinine Estim Creat Clear Calc Estimated GFR Random Glucose Calcium Phosphorus Magnesium Albumin Stool Occult Blood C. difficile Toxin A&B Negative C. difficile Antigen Negative C. difficile Interpret SEE NOTE Blood Type A Positive Antibody Screen NEGATIVE Crossmatch See Detail 08/12/20 08/12/20 12:15 12:15 WBC RBC Hgb Hct MCV MCH MCHC RDW Plt Count MPV Immature Gran % (Auto) Neut % (Auto) Lymph % (Auto) [place] % (Auto) Eos % (Auto) Baso % (Auto) Lymph # (Auto) [place] # (Auto) Eos # (Auto) Baso # (Auto) Abs Immat Gran (auto) Absolute Neuts (auto) Absolute Nucleated RBC Nucleated RBC % (auto) Neutrophils % (Manual) Band Neutrophils % Lymphocytes % (Manual) Monocytes % (Manual) Eosinophils % (Manual) Abs Neuts (Manual) Lymphocytes # (Manual) Monocytes # (Manual) Eosinophils # (Manual) Toxic Vacuolation Platelet Estimate Plt Morphology Comment RBC Morphology Hypochromasia Microcytosis Macrocytosis Ovalocytes Acanthocytes (Spur) VBG pH 7.33 VBG pCO2 31 VBG Oxygen Liters/Min TNP VBG pO2 39 VBG HCO3 16 VBG O2 Saturation 72.2 VBG Base Excess -8.8 Sodium 146 H Potassium 3.0 L Chloride 115 H Carbon Dioxide 15 L Anion Gap 19 BUN 124 H* Creatinine 4.84 H* Estim Creat Clear Calc 8.7 Estimated GFR 12 Random Glucose 131 H Calcium 7.0 L Phosphorus Magnesium Albumin Stool Occult Blood C. difficile Toxin A&B C. difficile Antigen C. difficile Interpret Blood Type Antibody Screen Crossmatch Microbiology Microbiology Results: Microbiology 08/11/20 04:29 Sputum - Suctioned Gram Stain - Final 08/11/20 04:29 Sputum - Suctioned Sputum Culture - Preliminary Culture in progress. 08/11/20 05:55 Urine Catheterized - Salas Catheter Urine Culture - Preliminary Gram negative kay 08/09/20 21:00 Urine clean catch - Clean Catch Midstream Urine Culture - Final Pseudomonas aeruginosa 08/11/20 04:39 Blood - Venous Blood Culture - Preliminary No growth after 24 hours. 08/11/20 04:35 Blood - Venous Blood Culture - Preliminary No growth after 24 hours. 08/09/20 17:45 Blood - Venous Blood Culture - Preliminary No growth after 48 hours. 08/09/20 17:28 Blood - Venous Blood Culture - Preliminary No growth after 48 hours. Progress Note: A&P Assessment and plan (1) Metabolic acidosis: Status: Acute (2) Anemia: Status: Acute (3) Metabolic encephalopathy: Status: Acute (4) Acute respiratory failure with hypoxia: Status: Acute (5) Hypernatremia: Problem details: Due to free water deficit Continue hypotonic fluids to correct pNa Goal Na <145 in 24 hours Status: Acute (6) UTI (urinary tract infection): Problem details: not acute issue,colonized with MDR organisms Status: Acute (7) Acute kidney injury superimposed on CKD: Problem details: Most likely has ATN Non oliguric No indication for dialysis yet Keep I > O and SBP > 100 Status: Acute (8) History of CVA (cerebrovascular accident): Status: Acute (9) Hypertension: Status: Acute (10) Dementia: Status: Acute (11) Chronic kidney disease (CKD): Status: Acute (12) Sepsis: Status: Acute (13) Pneumonia: Status: Acute (14) Renal failure (ARF), acute on chronic: Status: Acute Assessment and Plan: so I am replacing potassium and is supporting his blood pressure by maintaining CVP of at least 5-7 and minimal vasopressin and for now dobutamine is off and he has good residual heart rates of at least 65 but 97% oxygen saturation stable mean pressure of 80 with blood pressure 114/60 and I will just continue the meropenem for his Pseudomonas and I discussed the management with Urology who felt that he was weight 2 higher risk for any attempted stenting and felt that that there is no complete obstruction and really did not want to do any intervening and thus far urine output is picking up which is prognostically good for recovery of renal function and creatinine continues to diminish and so currently his fluids because of hyperchloremia essentially is a mild 50 milliequivalent/liter bicarb drip Time Spent With Patient Time: Total time spent is greater than 50% in coordination of care (as documented) at patient's floor/unit and/or counseling patient: Total time spent with greater than 50% in coordination of care (as documented) at patient's floor/unit and/or counseling patient:: 45
[2020-08-13] VITALS (31 sets, daily range): BP systolic 92–156; BP diastolic 33–78; PULSE 61–97; RESP 19–35; TEMP 37.1–38.3; O2SAT 92–100
--- NOTE | 2020-08-13 | CT_ITS ---
EXAMINATION: CT ABDOMEN AND PELVIS WITHOUT CONTRAST CLINICAL INFORMATION: Vented, unresponsive. Fever with ileus and hydronephrosis. CT pelvis 06/02/2020 COMPARISON: None TECHNIQUE: Multidetector volumetric imaging was performed from the superior aspect of the liver through the pubic symphysis. Sagittal and coronal reformatted images were obtained on the technologist's workstation. This CT examination was performed using dose optimization techniques as appropriate, variously including the following: Automated exposure control Adjustment of mA and/or kV according to patient size (this includes techniques or standardized protocols for targeted exams where dose is matched to indication/reason for exam; i.e. extremities or head) Use of iterative reconstruction technique DLP: 535 mGy-cm FINDINGS: LUNG BASES: There are bilateral lower lobe patchy opacities, small nodules and tree-in-bud appearance suggestive of infiltrate with small airway disease. The heart size is normal. There is an enteric tube with its tip in the body of the stomach. LIVER, GALLBLADDER, AND BILIARY TREE: The liver is normal in size, shape, and attenuation. No focal hepatic lesion or biliary ductal dilatation is present. The gallbladder is unremarkable with no evidence of radiopaque gallstones, gallbladder wall thickening, or obvious pericholecystic inflammatory changes. PANCREAS: Unremarkable. SPLEEN: Unremarkable. ADRENAL GLANDS: Unremarkable. KIDNEYS AND URETERS: The right kidney is normal in size, shape and position with normal cortical thickness. No radiopaque calculi are seen. A small left kidney seen with moderate hydroureteronephrosis extending to UVJ. BLADDER: There is a Salas catheter in the bladder with mild bladder wall thickening. GASTROINTESTINAL TRACT: There is a balloon inflated and rectal tube in place. There is moderate stool and diverticula seen in the sigmoid and rest of the colon without distention. There is some residual contrast in the transverse colon. The small bowel loops are of normal caliber. Appendix is not seen with certainty. Suspect small free fluid in the abdomen and pelvis. ABDOMINAL WALL: No significant hernia is appreciated. LYMPH NODES: Normal. VASCULAR: There is an infrarenal aortoiliac graft stent. Atherosclerotic calcification of proximal abdominal aorta is noted. PELVIC VISCERA: Minimal free fluid in pelvis. OSSEOUS STRUCTURES: Mild degenerative disc changes are seen at L2-L3, L3-L4 disc levels with endplate Schmorl's node from L2 through L5 vertebrae. No lytic process seen. There is bilateral L4-L5 and L3-L4 facet joint arthropathy. No lytic process. CT/CT abdomen pelvis wo con IMPRESSION: No acute intra-abdominal process is seen. Enteric tube, Salas catheter and balloon inflated rectal catheter are noted. There is left hydroureteronephrosis extending all the way to the bladder with mild bladder wall thickening. Colonic diverticulosis without diverticulitis. There is minimal free fluid. No free air seen. Bilateral lower lobe infiltrate and small airway disease.
--- NOTE | 2020-08-13 | XR_ITS ---
EXAMINATION: XR CHEST CLINICAL INFORMATION: Intubated. Fever. COMPARISON: Previous chest x-rays most recent from 08/11/2020 TECHNIQUE: Frontal view of the chest was obtained. FINDINGS: There is an endotracheal tube with tip 4 cm above the darinel. There is a left central line with tip projecting over the SVC. There is a nasogastric tube tip projecting over the left upper quadrant. The tip is not seen. The cardiac and mediastinal contours are stable. There is a bilateral lower lobe airspace disease. This does not appear appreciably changed from most recent exam 08/11/2020. No pleural effusion or pneumothorax is seen. XR/XR chest 1V IMPRESSION: Nasogastric tube projects over left upper quadrant. Tip is not seen. Satisfactory position of ET tube and left central line. No appreciable change in bilateral lower lobe airspace disease probably representing pneumonia.
[2020-08-13] MEDS: 0.9 % Sodium Chloride Flush 3 ML SYRINGE IVFLUSH ×4 (00:08→23:24)
[2020-08-13] MEDS: Heparin Sodium,Porcine 5,000 UNIT/ML VIAL 5000 UNIT SUBCUT ×3 (00:08→23:21)
[2020-08-13] MEDS: propofoL 1,000 MG/100 ML VIAL 6.46 MG IVCONT ×2 (03:37→16:43)
--- NOTE | 2020-08-13 06:11 | P.PNCC_ITS ---
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 and urine growing Pseudomonas and he has been on meropenem and based on his slightly improving GFR we increase stat to Q 12 hourly but he has developed a low-grade temperature despite it today and imaging showed no difference on his chest x-ray we did abdominal CT scan done which did not show an ileus pattern and no evidence of free air and gallbladder and pancreas looked to be find and the left kidney appears to be an atrophied as a result of chronic obstruction but we do note evidence of thrush and the base of the lung showed a central lobular nodular kind of infiltrate 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 good a could also be the no a function of the miliary fungal disease so I initiated caps often gin and 1 dose of Levaquin for synergy related to the Pseudomonas and and if it does not respond I might talk to Interventional Radiology in relation to source control and possibly trying to drain the dilated ureter in the renal pelvis a NG suction volume is relatively small and I am hoping this is a sign of early resolution of the ileus and we might once again try a trickle feeding at 10 cc/hour but until then were inserting a PICC line dedicated to TPN and will order TPN at least for the weekend at a L per 24 hours possible Intralipid on Sunday but we will defer to enteral feeding if he starts to tolerate renal function slowly resolving with increased urinary output and creatinine down to 4.3 slight improvement in bicarb on a daily basis but still hyperchloremic but there is a diminishing anion gap he is mildly hypernatremic at 1:47 a.m. and will give him increased free water and mildly hypokalemic so were potassium replacing gently Physical Exam Vital Signs: Vital Signs: Vital Signs Temp Pulse Resp BP Pulse Ox 08/13/20 05:49 100.8 F H 69 24 H 92/50 L 96 08/13/20 05:00 100.9 F H 97 29 H 96/60 94 08/13/20 03:57 100.8 F H 78 28 H 92/52 L 95 08/13/20 03:00 100.5 F H 78 24 H 106/52 L 94 08/13/20 01:55 100.4 F 78 24 H 111/59 L 95 08/13/20 01:00 100.6 F H 71 22 H 114/57 L 96 08/13/20 00:00 98.7 F 72 22 H 134/71 92 08/12/20 23:00 98.5 F 76 23 H 121/63 95 08/12/20 22:09 75 25 H 131/59 L 98 08/12/20 21:10 68 26 H 134/66 96 08/12/20 20:08 100.6 F H 73 28 H 133/79 96 08/12/20 19:04 76 28 H 135/70 93 08/12/20 18:34 76 08/12/20 18:00 99.7 F 73 31 H 127/74 94 08/12/20 16:50 100.2 F 64 24 H 111/55 L 96 08/12/20 15:49 100.2 F 67 22 H 105/57 L 96 08/12/20 15:00 100.2 F 62 21 H 105/57 L 96 08/12/20 14:00 99.9 F 66 25 H 118/60 97 08/12/20 13:00 99.5 F 71 23 H 114/59 L 97 08/12/20 12:35 78 08/12/20 11:54 99.5 F 74 28 H 96/49 L 97 08/12/20 11:50 99.3 F 80 27 H 120/49 L 08/12/20 11:00 99.5 F 87 26 H 119/70 96 08/12/20 09:55 99.5 F 77 22 H 115/57 L 08/12/20 09:51 99.5 F 79 24 H 115/57 L 93 08/12/20 09:39 99.5 F 83 23 H 132/66 08/12/20 09:00 99.5 F 73 24 H 115/57 L 94 08/12/20 07:49 99.5 F 66 22 H 110/57 L 97 08/12/20 07:00 99.5 F 58 21 H 114/58 L 96 Body Mass Index 21.7 Const: Other: propofol is stopped and he had some spontaneous but nonpurposeful eye opening and although somewhat responsive no demonstration of cognitive function so will probably recent date neurological is nonfocal his tone is equal no abnormal reflexes skin just shows mild redness over the coccyx CVP is still reading at 1 and still requiring 0.01 units of IV vasopressin but blood pressures very securely 148/59 but on doing this for the sake of renal perfusion and he remains in normal sinus rhythm with a rate of 62 and on the ventilator he has got minute ventilatory requirements of 13 L and FiO2 of only 30% abdomen benign and soft nondistended with good bowel sounds abdominal CT does no hepatosplenomegaly and chest minimal coarse bilateral sounds consistent with ventilator Objective Data Labs CBC & Chem 7: 08/13/20 05:50 08/13/20 05:50 Labs: Laboratory Results - last 24 hr 08/12/20 08/12/20 08/12/20 05:21 05:21 05:21 WBC RBC Hgb Hct MCV MCH MCHC RDW Plt Count MPV Immature Gran % (Auto) Neut % (Auto) Lymph % (Auto) [place] % (Auto) Eos % (Auto) Baso % (Auto) Lymph # (Auto) [place] # (Auto) Eos # (Auto) Baso # (Auto) Abs Immat Gran (auto) Absolute Neuts (auto) Absolute Nucleated RBC Nucleated RBC % (auto) Neutrophils % (Manual) 78 H Band Neutrophils % 5 Lymphocytes % (Manual) 9 L Monocytes % (Manual) 3 Eosinophils % (Manual) 5 H Abs Neuts (Manual) 9.0 H Lymphocytes # (Manual) 1.0 Monocytes # (Manual) 0.3 Eosinophils # (Manual) 0.5 Toxic Vacuolation PRESENT Platelet Estimate NORMAL Plt Morphology Comment NORMAL RBC Morphology NOTED Hypochromasia 1+ Microcytosis 1+ Macrocytosis Ovalocytes 1+ Acanthocytes (Spur) 3+ VBG pH 7.35 VBG pCO2 31 VBG Oxygen Liters/Min TNP VBG pO2 34 VBG HCO3 16 VBG O2 Saturation 62.7 VBG Base Excess -8.5 Sodium 147 H Potassium 3.3 Chloride 116 H Carbon Dioxide 13 L Anion Gap 21 H BUN 121 H* Creatinine 5.14 H* Estim Creat Clear Calc 8.2 Estimated GFR 11 Random Glucose 134 H Calcium 7.1 L Phosphorus 6.0 H Magnesium 2.0 Albumin 2.2 L D Stool Occult Blood C. difficile Toxin A&B C. difficile Antigen C. difficile Interpret Blood Type Antibody Screen Crossmatch 08/12/20 08/12/20 08/12/20 05:21 07:08 07:08 WBC RBC Hgb Hct MCV MCH MCHC RDW Plt Count MPV Immature Gran % (Auto) Neut % (Auto) Lymph % (Auto) [place] % (Auto) Eos % (Auto) Baso % (Auto) Lymph # (Auto) [place] # (Auto) Eos # (Auto) Baso # (Auto) Abs Immat Gran (auto) Absolute Neuts (auto) Absolute Nucleated RBC Nucleated RBC % (auto) Neutrophils % (Manual) Band Neutrophils % Lymphocytes % (Manual) Monocytes % (Manual) Eosinophils % (Manual) Abs Neuts (Manual) Lymphocytes # (Manual) Monocytes # (Manual) Eosinophils # (Manual) Toxic Vacuolation Platelet Estimate Plt Morphology Comment RBC Morphology Hypochromasia Microcytosis Macrocytosis Ovalocytes Acanthocytes (Spur) VBG pH VBG pCO2 VBG Oxygen Liters/Min VBG pO2 VBG HCO3 VBG O2 Saturation VBG Base Excess Sodium Cancelled Potassium Cancelled Chloride Cancelled Carbon Dioxide Cancelled Anion Gap Cancelled BUN Cancelled Creatinine Cancelled Estim Creat Clear Calc Cancelled Estimated GFR Cancelled Random Glucose Cancelled Calcium Cancelled Phosphorus Magnesium Albumin Stool Occult Blood NEG C. difficile Toxin A&B Negative C. difficile Antigen Negative C. difficile Interpret SEE NOTE Blood Type Antibody Screen Crossmatch 08/12/20 08/12/20 08/12/20 07:34 12:15 12:15 WBC 9.6 RBC 3.23 L Hgb 7.8 L Hct 24.7 L MCV 76.5 L MCH 24.1 L MCHC 31.6 RDW 18.4 H Plt Count 252 MPV 9.7 Immature Gran % (Auto) Cancelled Neut % (Auto) Cancelled Lymph % (Auto) Cancelled [place] % (Auto) Cancelled Eos % (Auto) Cancelled Baso % (Auto) Cancelled Lymph # (Auto) Cancelled [place] # (Auto) Cancelled Eos # (Auto) Cancelled Baso # (Auto) Cancelled Abs Immat Gran (auto) Cancelled Absolute Neuts (auto) Cancelled Absolute Nucleated RBC 0.030 H Nucleated RBC % (auto) 0.3 H Neutrophils % (Manual) 83 H Band Neutrophils % 11 H Lymphocytes % (Manual) 4 L Monocytes % (Manual) Eosinophils % (Manual) 2 Abs Neuts (Manual) 9.0 H Lymphocytes # (Manual) 0.4 L Monocytes # (Manual) Eosinophils # (Manual) 0.2 Toxic Vacuolation Platelet Estimate NORMAL Plt Morphology Comment NOTE RBC Morphology NOTED Hypochromasia 1+ Microcytosis Macrocytosis 1+ Ovalocytes 1+ Acanthocytes (Spur) 1+ VBG pH VBG pCO2 VBG Oxygen Liters/Min VBG pO2 VBG HCO3 VBG O2 Saturation VBG Base Excess Sodium 146 H Potassium 3.0 L Chloride 115 H Carbon Dioxide 15 L Anion Gap 19 BUN 124 H* Creatinine 4.84 H* Estim Creat Clear Calc 8.7 Estimated GFR 12 Random Glucose 131 H Calcium 7.0 L Phosphorus Magnesium Albumin Stool Occult Blood C. difficile Toxin A&B C. difficile Antigen C. difficile Interpret Blood Type A Positive Antibody Screen NEGATIVE Crossmatch See Detail 08/12/20 12:15 WBC RBC Hgb Hct MCV MCH MCHC RDW Plt Count MPV Immature Gran % (Auto) Neut % (Auto) Lymph % (Auto) [place] % (Auto) Eos % (Auto) Baso % (Auto) Lymph # (Auto) [place] # (Auto) Eos # (Auto) Baso # (Auto) Abs Immat Gran (auto) Absolute Neuts (auto) Absolute Nucleated RBC Nucleated RBC % (auto) Neutrophils % (Manual) Band Neutrophils % Lymphocytes % (Manual) Monocytes % (Manual) Eosinophils % (Manual) Abs Neuts (Manual) Lymphocytes # (Manual) Monocytes # (Manual) Eosinophils # (Manual) Toxic Vacuolation Platelet Estimate Plt Morphology Comment RBC Morphology Hypochromasia Microcytosis Macrocytosis Ovalocytes Acanthocytes (Spur) VBG pH 7.33 VBG pCO2 31 VBG Oxygen Liters/Min TNP VBG pO2 39 VBG HCO3 16 VBG O2 Saturation 72.2 VBG Base Excess -8.8 Sodium Potassium Chloride Carbon Dioxide Anion Gap BUN Creatinine Estim Creat Clear Calc Estimated GFR Random Glucose Calcium Phosphorus Magnesium Albumin Stool Occult Blood C. difficile Toxin A&B C. difficile Antigen C. difficile Interpret Blood Type Antibody Screen Crossmatch Microbiology Microbiology Results: Microbiology 08/11/20 04:29 Sputum - Suctioned Gram Stain - Final 08/11/20 04:29 Sputum - Suctioned Sputum Culture - Preliminary Culture in progress. 08/11/20 05:55 Urine Catheterized - Salas Catheter Urine Culture - Preliminary Gram negative kay 08/09/20 21:00 Urine clean catch - Clean Catch Midstream Urine Culture - Final Pseudomonas aeruginosa 08/11/20 04:39 Blood - Venous Blood Culture - Preliminary No growth after 24 hours. 08/11/20 04:35 Blood - Venous Blood Culture - Preliminary No growth after 24 hours. 08/09/20 17:45 Blood - Venous Blood Culture - Preliminary No growth after 48 hours. 08/09/20 17:28 Blood - Venous Blood Culture - Preliminary No growth after 48 hours. Progress Note: A&P Assessment and plan (1) Metabolic acidosis: Status: Acute (2) Anemia: Status: Acute (3) Metabolic encephalopathy: Status: Acute (4) Acute respiratory failure with hypoxia: Status: Acute (5) Hypernatremia: Problem details: Due to free water deficit Continue hypotonic fluids to correct pNa Goal Na <145 in 24 hours Status: Acute (6) UTI (urinary tract infection): Problem details: not acute issue,colonized with MDR organisms Status: Acute (7) Acute kidney injury superimposed on CKD: Problem details: Most likely has ATN Non oliguric Cr trending down BUN lagging behind No indication for dialysis yet Keep I > O and SBP > 100 Status: Acute (8) History of CVA (cerebrovascular accident): Status: Acute (9) Hypertension: Status: Acute (10) Dementia: Status: Acute (11) Chronic kidney disease (CKD): Status: Acute (12) Sepsis: Status: Acute (13) Pneumonia: Status: Acute (14) Renal failure (ARF), acute on chronic: Status: Acute Assessment and Plan: so PICC line is being placed for TPN and will try to trickle feeding at 10 cc an hour again repairing hypernatremia with free water and hypokalemia with potassium replacement will reinstate the sedation again until tomorrow and had miliary pattern a central lobular nodular infiltrate in both bases on going to treat with caps of function given its pattern and in case this is some form of endobronchial pneumonia possibly aspiration related will continue meropenem and 1 dose of Levaquin for synergy Time Spent With Patient Time: Total time spent is greater than 50% in coordination of care (as documented) at patient's floor/unit and/or counseling patient: Total time spent with greater than 50% in coordination of care (as documented) at patient's floor/unit and/or counseling patient:: 45
[2020-08-13 06:19] LABS: Basophils Percent Auto 0.2 % (0-2); Eosinophils Absolute Auto 0.2 X10*3/uL (0.0-0.4); Eosinophils Percent Auto 1.5 % (0-4); Hematocrit 25.4 % (42-52); Hemoglobin 8.1 g/dl (14.0-18.0); Imm Gran Abs Auto 0.11 X10*3/uL (0.00-0.03); Lymphocytes Absolute Auto 0.5 X10*3/uL (1.2-4.9); Lymphocytes Percent Auto 4.6 % (20-40); MANUAL DIFF FLAG SCAN; Mean Corpuscular HGB Conc 31.9 g/dl (31.0-36.0); Mean Corpuscular Hemoglobin 24.3 pg (27.0-33.0); Mean Corpuscular Volume 76.3 fL (80-98); Mean Platelet Volume 10.2 fL (9.4-12.4); Monocytes Absolute Auto 0.5 X10*3/uL (0.1-1.2); Monocytes Percent Auto 4.3 % (2-11); Neutrophils Percent Auto 88.4 % (45-73); Platelet Count 259 X10*3/uL (160-400); Red Blood Count 3.33 X10*6/uL (4.60-5.80); Red Cell Distribution Width 18.1 % (11.0-16.0); SCAN SMEAR FLAG 1; White Blood Count 11.3 X10*3/uL (4.8-10.8)
[2020-08-13 06:24] LABS: HCO3 VBG 17 mmol/L; Oxygen Saturation VBG 63.1 %; PCO2 VBG 34 mmhg; PO2 VBG 37 mmhg; pH VBG 7.31 (7.32-7.43)
[2020-08-13 06:37] LABS: Albumin Level 2.1 g/dL (3.5-5.0)
--- NOTE | 2020-08-13 06:50 | PC.NURSE ---
[id number] Propofol weaned down as tolerated. Vasopressin weaned off. Ventilating appropriately, overbreathing at times with RR 18-26. TMAX 100.8. SR 60's-90's. Frequent PVC's and PAC's. Brief, self-limited burst of SVT 160's. Moderate, thick, creamy inline secretions. White patches noted to tongue, unable to remove with oral care. MD updated. Initial GRV @ 0000 was 250ml (after only 4 hours with feed running @ 10ml/hr). Tube feeds held per [employer]ERK. Salas draining 50-70 cc/hr with some leaking. Rectal tube draining green-brown liquid stool with leaking. Buttocks red, macerated. Zinc oxide applied. Repositioned side to side Q2H as far on side as possible to facilitate air flow to buttocks. Full bath this morning.
[2020-08-13 06:51] LABS: Anion Gap 18 (12-20); Blood Urea Nitrogen 121 mg/dL (9-16); Calcium 6.9 mg/dL (8.4-10.2); Carbon Dioxide 15 mmol/L (22-29); Chloride 117 mmol/L (96-108); Creatinine Clr Calc Pharmacy 9.9; Estimated Glomerular Filt Rate 13; Glucose Random 76 mg/dL (60-115); Phosphorus 4.7 mg/dL (2.7-4.5); Potassium 3.3 mmol/l (3.3-5.1); Sodium 147 mmol/L (135-145)
[2020-08-13 08:30] LABS: SLIDE REVIEW VERIFIED
--- NOTE | 2020-08-13 10:24 | MHC.CLN ---
F/U TF HELD D/T HIGH RESIDUALS SUSPECT FOR ILEUS IF TPN NEEDED; RECOMMEND D15 AA5% DAY ONE AT 45CC/HR TO PROVIDE 767KCALS, 54G PROTEIN DAY TWO INCREASE TO 60CC/HR TO PROVIDE 1022KCALS, 72G PROTEIN (1.3G/KG) CHECK TRIGS; REPLETE LYTES DAY THREE: ADD 20ML OF 20% LIPIDS X 12HRS TO PROVIDE 1502KCALS (28KCALS/KG) REPLETE LYTES; CONSULT WITH PHARMACY RD AVAILABLE VIA TIGER TEXT IF NEEDED FOLLOWING
[2020-08-13] MEDS: Clopidogrel Bisulfate 75 MG TABLET PO (10:28)
[2020-08-13] MEDS: levoFLOXacin/D5W 500 MG/100 ML PIGGYBACK 100 MG IV (10:28)
[2020-08-13] MEDS: Chlorhexidine Gluc Oral Rinse 15 ML MOUTHWASH BUCCAL ×3 (10:29→22:09)
[2020-08-13] MEDS: KCl 20 mEq in 5 % Dextrose 20 MEQ/1,000 ML IV.SOLN 42 MEQ IVCONT (10:29)
--- NOTE | 2020-08-13 10:49 | MHC.CM.PN ---
Patient remains intubated/vented in ICU. Patient came to the hospital from [facility]. Family does not want patient to return there because they do not feel he received appropriate care there. 1st choice is [facility]. [facility] does not feel he is [facility] level of care. 2nd choice is [facility]. Clinical updates sent via [facility] to [facility] to see if they will be able to offer a bed when patient is medically stable. Continue to monitor for d/c needs.
--- NOTE | 2020-08-13 10:53 | PM.PNNEP ---
Subjective Subjective Interval history: Still intubated Off pressors Non oliguric Physical Exam Vital Signs: Vital Signs: Vital Signs Temp Pulse Resp BP Pulse Ox 08/13/20 10:00 100.2 F 91 22 H 110/64 94 08/13/20 09:00 100.8 F H 85 29 H 114/64 96 08/13/20 08:00 100.8 F H 81 24 H 98/50 L 94 08/13/20 07:00 100.6 F H 85 26 H 96/54 L 95 08/13/20 05:49 100.8 F H 69 24 H 92/50 L 96 08/13/20 05:00 100.9 F H 97 29 H 96/60 94 08/13/20 03:57 100.8 F H 78 28 H 92/52 L 95 08/13/20 03:00 100.5 F H 78 24 H 106/52 L 94 08/13/20 01:55 100.4 F 78 24 H 111/59 L 95 08/13/20 01:00 100.6 F H 71 22 H 114/57 L 96 08/13/20 00:00 98.7 F 72 22 H 134/71 92 08/12/20 23:00 98.5 F 76 23 H 121/63 95 08/12/20 22:09 75 25 H 131/59 L 98 08/12/20 21:10 68 26 H 134/66 96 08/12/20 20:08 100.6 F H 73 28 H 133/79 96 08/12/20 19:04 76 28 H 135/70 93 08/12/20 18:34 76 08/12/20 18:00 99.7 F 73 31 H 127/74 94 08/12/20 16:50 100.2 F 64 24 H 111/55 L 96 08/12/20 15:49 100.2 F 67 22 H 105/57 L 96 08/12/20 15:00 100.2 F 62 21 H 105/57 L 96 08/12/20 14:00 99.9 F 66 25 H 118/60 97 08/12/20 13:00 99.5 F 71 23 H 114/59 L 97 08/12/20 12:35 78 08/12/20 11:54 99.5 F 74 28 H 96/49 L 97 08/12/20 11:50 99.3 F 80 27 H 120/49 L 08/12/20 11:00 99.5 F 87 26 H 119/70 96 Body Mass Index 21.7 Const: General: ill appearing Resp: Auscultation: rhonchi Cardio: Heart sounds: no rubs Neuro: Motor exam (neuro): No Asterixis during motor activity present Assessment & Plan Assessment and plan (1) Acute kidney injury superimposed on CKD: Problem details: Most likely has ATN Non oliguric Cr trending down BUN lagging behind No indication for dialysis yet Keep I > O and SBP > 100 Status: Acute (2) Hypernatremia: Problem details: Due to free water deficit Continue hypotonic fluids to correct pNa Goal Na <145 in 24 hours Status: Acute (3) Anemia: Status: Acute (4) Metabolic acidosis: Status: Acute
--- NOTE | 2020-08-13 11:44 | MHC.SLORD ---
[address] [address] Speech & Hearing [phone] Dysphagia evaluation pending extubation (24-48 hours post-extubation). Name: Diallo Brady Date of : 1935 Age: 84 Date of Registration: 08/09/20 Speech Language Pathology Order Status: Patient Not Seen
[2020-08-13] MEDS: Sodium Bicarbonate 8.4% 50 MEQ in Dextrose 5 % 950 ML 100 MEQ IVPUSH (11:52)
--- NOTE | 2020-08-13 15:36 | HO.PICC ---
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 Following completion of [place] Protocol the skin and soft tissues were anesthetized with 1% Lidocaine plain. Using ultrasound guidance, [RIGHT BRACHIAL] vein access was obtained. Over an 0.018 wire through peel-away sheath, a [TRIPLE LUMEN] PICC line was positioned. Catheter length is [38 CM] internal length, [ZERO] external length, for a total trimmed length of [38 cm]. The procedure was performed in [ICU, ROOM 255]. Tip verification was performed by Radha Springer with Sherjeanette 3CG. Tip located in SVC. Ultrasound was used to document vein patency and for needle entry. A formal ultrasound picture and cardiac rhythm strip was recorded. Vascular Orthodontist Small Business Owner has released the line for use and it is currently dressed with a StatLock, Tegaderm, and CHG disc. Verification has been performed for blood return and line patency. Arm Circumference: [24.5 CM] Equipment: [DriverSide POWER PICC SOLO] Catheter Type: [5 GEORGIAN TRIPLE LUMEN] Lot #: [[id number]]
[2020-08-13] MEDS: Midazolam HCl/PF 2 MG/2 ML VIAL IVPUSH (18:42)
--- NOTE | 2020-08-13 18:47 | PC.NURSE ---
SHIFT UPDATE; PT INTUBATED AND SEDATED ON PROPOFOL GTT; CT SCAN OF ABD DONE THIS AM; PRESSORS OFF AT START OF SHIFT; VASOPRESSIN RESTARTED IN AFTERNOON; SEDATION WEANED OFF AT 1230, SON AND HCP AT BEDSIDE- UPDATED BY MD; PT ON PRESSURE SUPPORT THIS LATE AFTERNOON FOR BRIEF PERIOD OF TIME- SEDATION RESUMED PER MD; D5W WITH 20 KCL HUNG THIS AM; NA BICARB GTT HUNG THIS AM WELL; PICC LINE PLACED THIS AFTERNOON AROUND 1400 BY IR 38 CM; TPN STARTED THIS EVENING; ADDITIONAL 2 MG VERSED GIVEN THIS EVENING FOR RESTLESSNESS; REPORT GIVEN TO ONCOMING RN
[2020-08-14] VITALS (28 sets, daily range): BP systolic 106–185; BP diastolic 56–106; PULSE 59–92; RESP 18–28; TEMP 37.2–38.4; O2SAT 94–100
[2020-08-14] MEDS: propofoL 1,000 MG/100 ML VIAL 6.46 MG IVCONT (04:24)
[2020-08-14] MEDS: Sodium Bicarbonate 8.4% 50 MEQ in Dextrose 5 % 950 ML 40 MEQ IVPUSH (04:51)
[2020-08-14 05:43] LABS: Basophils Percent Auto 0.1 % (0-2); Eosinophils Absolute Auto 0.2 X10*3/uL (0.0-0.4); Eosinophils Percent Auto 1.4 % (0-4); Hematocrit 25.3 % (42-52); Hemoglobin 8.2 g/dl (14.0-18.0); Imm Gran Abs Auto 0.22 X10*3/uL (0.00-0.03); Imm Gran Pct Auto 1.6 % (0.0-0.4); Lymphocytes Absolute Auto 0.6 X10*3/uL (1.2-4.9); Lymphocytes Percent Auto 4.5 % (20-40); MANUAL DIFF FLAG SCAN; Mean Corpuscular HGB Conc 32.4 g/dl (31.0-36.0); Mean Corpuscular Hemoglobin 24.4 pg (27.0-33.0); Mean Corpuscular Volume 75.3 fL (80-98); Monocytes Absolute Auto 0.5 X10*3/uL (0.1-1.2); Monocytes Percent Auto 3.7 % (2-11); Neutrophils Absolute Auto 11.8 X10*3/uL (2.0-8.3); Neutrophils Percent Auto 88.7 % (45-73); Platelet Count 246 X10*3/uL (160-400); Red Blood Count 3.36 X10*6/uL (4.60-5.80); Red Cell Distribution Width 17.8 % (11.0-16.0); SCAN SMEAR FLAG 1; White Blood Count 13.4 X10*3/uL (4.8-10.8)
[2020-08-14 05:48] LABS: Base Excess VBG -7.5 mmol/L; HCO3 VBG 17 mmol/L; Oxygen Saturation VBG 68.3 %; PCO2 VBG 32 mmhg; PO2 VBG 38 mmhg; pH VBG 7.35 (7.32-7.43)
--- NOTE | 2020-08-14 05:55 | PC.NURSE ---
PT REMAINS INTUBATED ON PRESSURE CONTROL SETTINGS AND TOLERATING WELL ON PROPOFOL AT 20 MCG/KG/MIN. RESPONSIVE TO NAME. DOES NOT FOLLOW COMMANDS. NO RESP DIFFICULTIES. O2 SATS 97-100%. TV 450-600. MV 14-16. TEMP LOW GRADE 99.0-100 CORE. MONITOR SHOWS NSR, HR 60-70, OCC PAC, PVC, FEW RUNS OF PAT SELF LIMITING. BP STABLE. VASOPRESSIN REMAINS OFF. CVP 4-6. U/O 30-50 ML/HR. TUBE FEED AT 10 ML/HR. ASPIRATING 10-[address]. [address]AL [address]UBE IN PL[address] FOR LIQUID BROWN STOOL BUT OUTPUT HAS SLOWED DOWN. TPN INFUSING VIA RT UPPER ARM ORDERED.
[2020-08-14 06:02] LABS: SLIDE REVIEW VERIFIED
[2020-08-14 06:13] LABS: Anion Gap 18 (12-20); Blood Urea Nitrogen 107 mg/dL (9-16); Calcium 6.7 mg/dL (8.4-10.2); Carbon Dioxide 16 mmol/L (22-29); Chloride 113 mmol/L (96-108); Creatinine Clr Calc Pharmacy 12.3; Estimated Glomerular Filt Rate 17; Glucose Random 160 mg/dL (60-115); Magnesium 1.9 mg/dL (1.6-2.6); Phosphorus 4.1 mg/dL (2.7-4.5); Potassium 3.2 mmol/l (3.3-5.1); Sodium 144 mmol/L (135-145)
--- NOTE | 2020-08-14 07:00 | PC.NURSE ---
propofol off at [address] townsend for sedation vacation.
[2020-08-14] MEDS: Potassium Chloride Packet 20 MEQ PACKET PO (07:26)
[2020-08-14] MEDS: 0.9 % Sodium Chloride Flush 3 ML SYRINGE IVFLUSH ×2 (07:27→16:33)
[2020-08-14] MEDS: Chlorhexidine Gluc Oral Rinse 15 ML MOUTHWASH BUCCAL ×2 (07:27→13:08)
[2020-08-14] MEDS: Clopidogrel Bisulfate 75 MG TABLET PO (07:27)
[2020-08-14 09:52] LABS: Base Excess VBG -6.9 mmol/L; HCO3 VBG 18 mmol/L; Oxygen Saturation VBG 68.7 %; PCO2 VBG 35 mmhg; PO2 VBG 37 mmhg; pH VBG 7.33 (7.32-7.43)
--- NOTE | 2020-08-14 10:28 | PC.RT ---
Pt extubated at 10AM to nasal cannula , Ray well SpO2 after extubation 97%.
[2020-08-14 11:07] LABS: Triglycerides 202 mg/dL
[2020-08-14] MEDS: Heparin Sodium,Porcine 5,000 UNIT/ML VIAL 5000 UNIT SUBCUT ×2 (13:07→22:16)
--- NOTE | 2020-08-14 13:09 | PM.CCPN ---
Subjective Subjective Date of Service: 08/14/20 Interval History: 84-year-old male with history of old CVA and residual left hemiparesis chronic indwelling Salas due to prostate carcinoma treated with radiation complicated by left ureteral obstruction with residual hydroureter and hydronephrosis and presented with Pseudomonas urinary tract infection and clinical sepsis and also had a pneumonia with bibasilar nodular infiltrates and now growing Proteus as well as numerous polys and yeast so I can not rule out from the appearance the possibility of invasive candidal infection and presented with acute on chronic stage 5 renal failure and virtual an urea he was significantly hypotensive profound metabolic acidosis uremic obtunded and in respiratory distress with acute hypoxemic respiratory failure required intubation and today was extubated woke up with cognitive function although not yet verbalizing and his T-max seems to be descending every day and his metabolic acidosis is repairing currently hyperchloremic with serum bicarb now up to 17 and no longer has an anion gap and serum creatinine is down to 3.4 and his GFR is up to 17 Physical Exam Vital Signs: Vital Signs: Vital Signs Temp Pulse Resp BP Pulse Ox 08/14/20 11:07 123/62 08/14/20 11:00 99.5 F 67 25 H 185/71 H 99 08/14/20 10:00 99.5 F 82 20 134/106 H 97 08/14/20 09:00 99.3 F 67 20 159/73 H 97 08/14/20 08:00 99.5 F 65 22 H 158/73 H 98 08/14/20 06:57 99.3 F 61 20 123/61 99 08/14/20 06:00 99.1 F 60 20 123/61 99 08/14/20 05:00 99.3 F 60 23 H 135/63 100 08/14/20 04:00 99.1 F 61 22 H 146/71 H 100 08/14/20 03:00 99 F 59 22 H 127/75 100 08/14/20 02:00 99 F 62 24 H 151/59 H 98 08/14/20 01:00 99.3 F 62 21 H 124/61 100 08/14/20 00:00 99.5 F 68 24 H 134/70 100 08/13/20 23:07 99.9 F 64 21 H 146/60 H 100 08/13/20 22:00 100.2 F 70 23 H 140/61 H 97 08/13/20 21:00 99.7 F 72 24 H 138/66 97 08/13/20 20:00 99.9 F 70 26 H 126/33 L 98 08/13/20 19:00 99.9 F 65 23 H 133/65 100 08/13/20 17:51 100.2 F 65 21 H 156/57 H 100 08/13/20 17:00 100.4 F 61 20 136/66 08/13/20 15:52 100.2 F 73 23 H 146/68 H 97 08/13/20 15:00 100.2 F 63 19 147/72 H 96 08/13/20 14:00 100 F 71 25 H 138/75 97 Body Mass Index 21.7 Const: Other: off propofol he awoke and did have demonstrable cognitive function with left hemiparesis which is chronic mild reddening of skin overlying the coccyx cardiac exam with normal sinus rhythm and good bilateral carotid upstrokes no neck vein distension CVP measured at 5 to 6 cardiac exam normal S1 and normal S2 with no gallops or murmurs abdomen is still soft with good bowel sounds and he was tolerating his feedings with no residuals finally continues having bowel movements chest with bilateral proximal airway rhonchi probably unclear secretions Objective Data Labs CBC & Chem 7: 08/14/20 05:10 08/14/20 05:10 Labs: Laboratory Results - last 24 hr 08/14/20 08/14/20 08/14/20 05:10 05:10 05:10 WBC 13.4 H RBC 3.36 L Hgb 8.2 L Hct 25.3 L MCV 75.3 L MCH 24.4 L MCHC 32.4 RDW 17.8 H Plt Count 246 MPV 10.0 Immature Gran % (Auto) 1.6 H Neut % (Auto) 88.7 H Lymph % (Auto) 4.5 L [place] % (Auto) 3.7 Eos % (Auto) 1.4 Baso % (Auto) 0.1 Lymph # (Auto) 0.6 L [place] # (Auto) 0.5 Eos # (Auto) 0.2 Baso # (Auto) 0.0 Abs Immat Gran (auto) 0.22 H Absolute Neuts (auto) 11.8 H Absolute Nucleated RBC 0.000 Nucleated RBC % (auto) 0.0 Smear Tech's Comments VERIFIED VBG pH VBG pCO2 VBG Oxygen Liters/Min VBG pO2 VBG HCO3 VBG O2 Saturation VBG Base Excess Sodium 144 Potassium 3.2 L Chloride 113 H Carbon Dioxide 16 L Anion Gap 18 BUN 107 H* Creatinine 3.44 H Estim Creat Clear Calc 12.3 Estimated GFR 17 Random Glucose 160 H D Calcium 6.7 L Phosphorus 4.1 Magnesium 1.9 Albumin 2.0 L Triglycerides 202 08/14/20 08/14/20 05:10 09:44 WBC RBC Hgb Hct MCV MCH MCHC RDW Plt Count MPV Immature Gran % (Auto) Neut % (Auto) Lymph % (Auto) [place] % (Auto) Eos % (Auto) Baso % (Auto) Lymph # (Auto) [place] # (Auto) Eos # (Auto) Baso # (Auto) Abs Immat Gran (auto) Absolute Neuts (auto) Absolute Nucleated RBC Nucleated RBC % (auto) Smear Tech's Comments VBG pH 7.35 7.33 VBG pCO2 32 35 VBG Oxygen Liters/Min TNP VBG pO2 38 37 VBG HCO3 17 18 VBG O2 Saturation 68.3 68.7 VBG Base Excess -7.5 -6.9 Sodium Potassium Chloride Carbon Dioxide Anion Gap BUN Creatinine Estim Creat Clear Calc Estimated GFR Random Glucose Calcium Phosphorus Magnesium Albumin Triglycerides Microbiology Microbiology Results: Microbiology 08/11/20 04:29 Sputum - Suctioned Gram Stain - Final 08/11/20 04:29 Sputum - Suctioned Sputum Culture - Preliminary Proteus mirabilis 08/11/20 05:55 Urine Catheterized - Salas Catheter Urine Culture - Final Pseudomonas aeruginosa 08/11/20 04:39 Blood - Venous Blood Culture - Preliminary No growth after 48 hours. 08/11/20 04:35 Blood - Venous Blood Culture - Preliminary No growth after 48 hours. 08/09/20 21:00 Urine clean catch - Clean Catch Midstream Urine Culture - Final Pseudomonas aeruginosa 08/09/20 17:45 Blood - Venous Blood Culture - Preliminary No growth after 48 hours. 08/09/20 17:28 Blood - Venous Blood Culture - Preliminary No growth after 48 hours. Progress Note: A&P Assessment and plan (1) Metabolic acidosis: Status: Acute (2) Anemia: Status: Acute (3) Acute respiratory failure with hypoxia: Status: Acute (4) Metabolic encephalopathy: Status: Acute (5) Hypernatremia: Problem details: Due to free water deficit Continue hypotonic fluids to correct pNa Goal Na <145 in 24 hours Status: Acute (6) UTI (urinary tract infection): Problem details: not acute issue,colonized with MDR organisms Status: Acute (7) Acute kidney injury superimposed on CKD: Problem details: Most likely has ATN Non oliguric Cr trending down BUN lagging behind No indication for dialysis yet Keep I > O and SBP > 100 Status: Acute (8) History of CVA (cerebrovascular accident): Status: Acute (9) Hypertension: Status: Acute (10) Dementia: Status: Acute (11) Chronic kidney disease (CKD): Status: Acute (12) Sepsis: Status: Acute (13) Pneumonia: Status: Acute (14) Renal failure (ARF), acute on chronic: Status: Acute Assessment and Plan: so the plan remains for stay with meropenem and adding caspofungin and was given Levaquin once for synergy and will evaluate swallow and for recommendation will begin some feedings but will maintain currently TPN at 1 L a day along with his continued bicarb drip and all pressors have been discontinued Time Spent With Patient Time: Total time spent is greater than 50% in coordination of care (as documented) at patient's floor/unit and/or counseling patient: Total time spent with greater than 50% in coordination of care (as documented) at patient's floor/unit and/or counseling patient:: 45
[2020-08-14] MEDS: Caspofungin Acetate 50 MG in 0.9 % Sodium Chloride 250 ML 260 MG IV (14:56)
--- NOTE | 2020-08-14 15:26 | PC.NURSE ---
SHIFT UPDATE; PT INTUBATED, OFF SEDATION; TRANSITIONED TO PSV SETTINGS EARLY THIS AM AND EXTUBATED TO NC 3L AT ~0955 THIS AM; RESTRAINTS D/C'D; TPN AND BICARB GTT CONTINUES TO INFUSE; REAMINING NPO- WEAK COUGH, OCCASIONALLY REQUIRING DEEP SUCTIONING VIA YAUNKAR- THICK CREAM COLORED SPUTUM SUCTIONED; LUNG SOUNDS DIMINISHED BILATERALLY; RECTAL TUBE REMOVED; TLC IN L SUBCLAVIAN AND R PICC LINE IN PLACE; LONGORIA DRAINING ~50 MLS/HR OF URINE; DAUGHTER IN LAW WILL AT BEDSIDE THIS AFTERNOON; PT REPOSITIONING Q2H;
--- NOTE | 2020-08-14 16:32 | PM.PNNEP ---
Subjective Subjective Interval history: Events noted On vent FiO2 30% UO OK Physical Exam Vital Signs: Vital Signs: Vital Signs Temp Pulse Resp BP Pulse Ox 08/14/20 15:57 100.4 F 79 19 106/56 L 95 08/14/20 15:00 100.2 F 92 25 H 122/83 95 08/14/20 14:00 100 F 81 25 H 135/82 95 08/14/20 13:00 99.9 F 80 26 H 141/78 H 96 08/14/20 11:07 123/62 08/14/20 11:00 99.5 F 67 25 H 185/71 H 99 08/14/20 10:00 99.5 F 82 20 134/106 H 97 08/14/20 09:00 99.3 F 67 20 159/73 H 97 08/14/20 08:00 99.5 F 65 22 H 158/73 H 98 08/14/20 06:57 99.3 F 61 20 123/61 99 08/14/20 06:00 99.1 F 60 20 123/61 99 08/14/20 05:00 99.3 F 60 23 H 135/63 100 08/14/20 04:00 99.1 F 61 22 H 146/71 H 100 08/14/20 03:00 99 F 59 22 H 127/75 100 08/14/20 02:00 99 F 62 24 H 151/59 H 98 08/14/20 01:00 99.3 F 62 21 H 124/61 100 08/14/20 00:00 99.5 F 68 24 H 134/70 100 08/13/20 23:07 99.9 F 64 21 H 146/60 H 100 08/13/20 22:00 100.2 F 70 23 H 140/61 H 97 08/13/20 21:00 99.7 F 72 24 H 138/66 97 08/13/20 20:00 99.9 F 70 26 H 126/33 L 98 08/13/20 19:00 99.9 F 65 23 H 133/65 100 08/13/20 17:51 100.2 F 65 21 H 156/57 H 100 08/13/20 17:00 100.4 F 61 20 136/66 Body Mass Index 21.7 Const: General: ill appearing Resp: Auscultation: rhonchi Cardio: Heart sounds: no rubs Neuro: Motor exam (neuro): No Asterixis during motor activity present Assessment & Plan Assessment and plan (1) Acute kidney injury superimposed on CKD: Problem details: Most likely has ATN Non oliguric Cr trending down BUN lagging behind No indication for dialysis yet Keep I > O and SBP > 100 Status: Acute (2) Hypernatremia: Problem details: Due to free water deficit Continue hypotonic fluids to correct pNa Goal Na <145 in 24 hours Status: Acute (3) Anemia: Status: Acute (4) Metabolic acidosis: Status: Acute Time Spent With Patient Time: Total time spent is greater than 50% in coordination of care (as documented) at patient's floor/unit and/or counseling patient:
[2020-08-14 17:03] LABS: Base Excess VBG -5.7 mmol/L; HCO3 VBG 19 mmol/L; PCO2 VBG 34 mmhg; PO2 VBG 34 mmhg; pH VBG 7.37 (7.32-7.43)
[2020-08-14 17:04] LABS: Blood Gas Serial # 5396; Oxygen Saturation VBG 62.8 %
[2020-08-15] VITALS (25 sets, daily range): BP systolic 119–181; BP diastolic 52–84; PULSE 27–88; RESP 15–28; TEMP 37.6–38.4; O2SAT 93–100
[2020-08-15] MEDS: Sodium Bicarbonate 8.4% 50 MEQ in Dextrose 5 % 950 ML 40 MEQ IVPUSH (04:52)
[2020-08-15 05:24] LABS: MANUAL DIFF FLAG NO
[2020-08-15 05:35] LABS: Basophils Percent Auto 0.1 % (0-2); Eosinophils Absolute Auto 0.2 X10*3/uL (0.0-0.4); Eosinophils Percent Auto 1.6 % (0-4); Hematocrit 24.6 % (42-52); Hemoglobin 7.8 g/dl (14.0-18.0); Imm Gran Pct Auto 2.2 % (0.0-0.4); Lymphocytes Absolute Auto 0.8 X10*3/uL (1.2-4.9); Lymphocytes Percent Auto 5.8 % (20-40); Mean Corpuscular HGB Conc 31.7 g/dl (31.0-36.0); Mean Corpuscular Hemoglobin 23.8 pg (27.0-33.0); Mean Platelet Volume 10.4 fL (9.4-12.4); Monocytes Absolute Auto 0.5 X10*3/uL (0.1-1.2); Monocytes Percent Auto 3.4 % (2-11); Neutrophils Absolute Auto 11.9 X10*3/uL (2.0-8.3); Neutrophils Percent Auto 86.9 % (45-73); Platelet Count 268 X10*3/uL (160-400); Red Blood Count 3.28 X10*6/uL (4.60-5.80); Red Cell Distribution Width 17.8 % (11.0-16.0); White Blood Count 13.7 X10*3/uL (4.8-10.8)
[2020-08-15 05:35] LABS: Base Excess VBG -5.1 mmol/L; HCO3 VBG 20 mmol/L; Oxygen Saturation VBG 69.3 %; PCO2 VBG 35 mmhg; PO2 VBG 38 mmhg; pH VBG 7.37 (7.32-7.43)
[2020-08-15 05:57] LABS: Anion Gap 15 (12-20); Blood Urea Nitrogen 97 mg/dL (9-16); Calcium 6.9 mg/dL (8.4-10.2); Carbon Dioxide 19 mmol/L (22-29); Chloride 117 mmol/L (96-108); Creatinine Clr Calc Pharmacy 14.6; Estimated Glomerular Filt Rate 21; Glucose Random 120 mg/dL (60-115); Phosphorus 3.6 mg/dL (2.7-4.5); Potassium 3.1 mmol/l (3.3-5.1); Sodium 148 mmol/L (135-145)
[2020-08-15] MEDS: 0.9 % Sodium Chloride Flush 3 ML SYRINGE IVFLUSH ×3 (07:21→21:05)
[2020-08-15] MEDS: vancomycin HCL 1,000 MG in 0.9 % Sodium Chloride 250 ML 270 MG IV (07:21)
[2020-08-15] MEDS: Caspofungin Acetate 50 MG in 0.9 % Sodium Chloride 250 ML 260 MG IV (08:54)
[2020-08-15] MEDS: KCl 40 mEq in 5% Dex/0.45% Sod 40 MEQ/1,000 ML IV.SOLN 42 MEQ IVCONT (08:59)
--- NOTE | 2020-08-15 09:44 | PM.PNNEP ---
Subjective Subjective Interval history: Events noted On vent FiO2 30% Cr trending down Physical Exam Vital Signs: Vital Signs: Vital Signs Temp Pulse Resp BP Pulse Ox 08/15/20 09:00 80 15 154/79 H 97 08/15/20 08:00 100.4 F 86 22 H 178/76 H 96 08/15/20 07:00 100.2 F 77 28 H 173/74 H 95 08/15/20 06:00 70 22 H 94 08/15/20 05:00 99.9 F 67 24 H 153/72 H 98 08/15/20 04:00 99.9 F 68 26 H 148/81 H 99 08/15/20 03:00 100.4 F 72 23 H 137/69 96 08/15/20 02:12 70 119/71 08/15/20 02:00 100.6 F H 73 22 H 119/71 98 08/15/20 00:47 101.1 F H 87 26 H 130/75 97 08/14/20 23:56 101.1 F H 80 28 H 142/70 H 97 08/14/20 23:00 101.1 F H 81 27 H 150/70 H 97 08/14/20 22:33 83 26 H 156/72 H 95 08/14/20 21:00 82 163/80 H 95 08/14/20 20:00 87 27 H 169/86 H 95 08/14/20 19:00 100.6 F H 84 24 H 169/82 H 94 08/14/20 18:00 100.4 F 77 27 H 167/98 H 96 08/14/20 17:00 100.4 F 82 27 H 141/67 H 94 08/14/20 15:57 100.4 F 79 19 106/56 L 95 08/14/20 15:00 100.2 F 92 25 H 122/83 95 08/14/20 14:00 100 F 81 25 H 135/82 95 08/14/20 13:00 99.9 F 80 26 H 141/78 H 96 08/14/20 11:07 123/62 08/14/20 11:00 99.5 F 67 25 H 185/71 H 99 Body Mass Index 21.7 Const: General: ill appearing Resp: Auscultation: rhonchi Cardio: Heart sounds: no rubs Neuro: Motor exam (neuro): No Asterixis during motor activity present Assessment & Plan Assessment and plan (1) Acute kidney injury superimposed on CKD: Status: Acute (2) Hypernatremia: Status: Acute (3) Anemia: Status: Acute (4) Metabolic acidosis: Status: Acute Time Spent With Patient Time: Total time spent is greater than 50% in coordination of care (as documented) at patient's floor/unit and/or counseling patient:
[2020-08-15 11:02] LABS: MRSA Nasal PCR POSITIVE (Negative); SA Nasal PCR POSITIVE (Negative)
[2020-08-15] MEDS: Heparin Sodium,Porcine 5,000 UNIT/ML VIAL 5000 UNIT SUBCUT ×2 (11:12→21:05)
--- NOTE | 2020-08-15 13:18 | PC.NURSE ---
Patient presenting with nonproductive congested wet weak cough. Patient requiring frequent oral suctioning with significant amount of thick cream colored sputum. Unable to administer PO medications due to patients inability to manage own secretions. Aspirations precautions in place, head of bed elevated, mouth swabbed. MD aware - will continue to monitor.
--- NOTE | 2020-08-15 14:18 | P.PNCC_ITS ---
Subjective Subjective Date of Service: 08/15/20 Interval History: 84-year-old male with left hydroureter and hydronephrosis which is chronic ever since radiation damage for his prostate CA came in with acute on chronic stage 5 renal failure markedly hypotensive requiring blood pressure support with central line placement and CVP of 0 was then volume repleted and he grew Pseudomonas from the urinary tract and he defervesced on meropenem the dose of which has been increased to q.12 hourly as his renal function continues to repair at and his metabolic acidosis continues to improve with improving serum bicarb and creatinine is now down to 2.9 having started at over 6 but still remains mildly hyper an [facility] dieudonne and only because he has not been able to satisfy oral intake yet his swallowing mechanism was still dysfunctional and he does have a history of left hemiparesis from an old CVA but is able to communicate he is able to cough and not ideal toileting but he is able to bring some secretions at least up to his throat and then he swallow sometimes but he has had persistent low-grade [place] a [place] [id number] and it raises concerns that he may still have more of a mixed infection that could include a staph so we did a nasal MRSA screen and he was positive and at this point with all the repeat cultures pending I added vancomycin with 1 g initially and then 750 mg Q 24 hourly to cover this possibility meropenem remaining and he is also on caspofungin because of the sputum that showed an abundance of polys and yeast and given the appearance of his bibasilar multi nodular infiltrate I am covering for Kat as though it is invasive he might need an interventional radiology consult in the morning to see whether not there is a necessity for source control with possible percutaneous drainage at the level of the renal pelvis on the left side Physical Exam Vital Signs: Vital Signs: Vital Signs Temp Pulse Resp BP Pulse Ox 08/15/20 14:00 99.7 F 67 26 H 141/77 H 99 08/15/20 12:57 99.7 F 65 21 H 136/72 99 08/15/20 12:00 99.7 F 73 22 H 181/74 H 95 08/15/20 11:00 77 24 H 122/59 L 97 08/15/20 10:00 63 18 155/52 H 93 08/15/20 09:00 80 15 154/79 H 97 11/01/20 08:00 100.4 F 86 22 H 178/76 H 96 08/15/20 07:00 100.2 F 77 28 H 173/74 H 95 08/15/20 06:00 70 22 H 94 08/15/20 05:00 99.9 F 67 24 H 153/72 H 98 08/15/20 04:00 99.9 F 68 26 H 148/81 H 99 08/15/20 03:00 100.4 F 72 23 H 137/69 96 08/15/20 02:12 70 119/71 08/15/20 02:00 100.6 F H 73 22 H 119/71 98 08/15/20 00:47 101.1 F H 87 26 H 130/75 97 08/14/20 23:56 101.1 F H 80 28 H 142/70 H 97 08/14/20 23:00 101.1 F H 81 27 H 150/70 H 97 08/14/20 22:33 83 26 H 156/72 H 95 08/14/20 21:00 82 163/80 H 95 08/14/20 20:00 87 27 H 169/86 H 95 08/14/20 19:00 100.6 F H 84 24 H 169/82 H 94 08/14/20 18:00 100.4 F 77 27 H 167/98 H 96 08/14/20 17:00 100.4 F 82 27 H 141/67 H 94 08/14/20 15:57 100.4 F 79 19 106/56 L 95 Body Mass Index 21.7 Const: Other: he still remains awake and responsive skin is intact just mild redness overlying the coccyx otherwise no skin d isruption no livedo no acrocyanosis and vital signs of an exc ellent cardiac exam with normal S1 and normal S2 with no gallops or murmurs chest with bilateral rhonchi consistent with some proximal airway secretions abdomen benign no bruits no tenderness no organomegaly Objective Data Labs CBC & Chem 7: 08/15/20 05:13 08/15/20 05:13 Labs: Laboratory Results - last 24 hr 08/14/20 08/15/20 08/15/20 16:41 05:00 05:13 WBC 13.7 H RBC 3.28 L Hgb 7.8 L Hct 24.6 L MCV 75.0 L MCH 23.8 L MCHC 31.7 RDW 17.8 H Plt Count 268 MPV 10.4 Immature Gran % (Auto) 2.2 H Neut % (Auto) 86.9 H Lymph % (Auto) 5.8 L [place] % (Auto) 3.4 Eos % (Auto) 1.6 Baso % (Auto) 0.1 Lymph # (Auto) 0.8 L [place] # (Auto) 0.5 Eos # (Auto) 0.2 Baso # (Auto) 0.0 Abs Immat Gran (auto) 0.30 H Absolute Neuts (auto) 11.9 H Absolute Nucleated RBC 0.000 Nucleated RBC % (auto) 0.0 VBG pH 7.37 7.37 VBG pCO2 34 35 VBG Oxygen Liters/Min TNP Not Reportable VBG pO2 34 38 VBG HCO3 19 20 VBG O2 Saturation 62.8 69.3 VBG Base Excess -5.7 -5.1 Sodium Potassium Chloride Carbon Dioxide Anion Gap BUN Creatinine Estim Creat Clear Calc Estimated GFR Random Glucose Calcium Phosphorus Magnesium Albumin Nasal Screen MRSA (PCR) Nasal S. aureus Screen Nasal MRSA/S.aureus Interp 08/15/20 08/15/20 05:13 07:29 WBC RBC Hgb Hct MCV MCH MCHC RDW Plt Count MPV Immature Gran % (Auto) Neut % (Auto) Lymph % (Auto) [place] % (Auto) Eos % (Auto) Baso % (Auto) Lymph # (Auto) [place] # (Auto) Eos # (Auto) Baso # (Auto) Abs Immat Gran (auto) Absolute Neuts (auto) Absolute Nucleated RBC Nucleated RBC % (auto) VBG pH VBG pCO2 VBG Oxygen Liters/Min VBG pO2 VBG HCO3 VBG O2 Saturation VBG Base Excess Sodium 148 H Potassium 3.1 L Chloride 117 H Carbon Dioxide 19 L Anion Gap 15 BUN 97 H* Creatinine 2.90 H Estim Creat Clear Calc 14.6 Estimated GFR 21 Random Glucose 120 H Calcium 6.9 L Phosphorus 3.6 Magnesium 2.0 Albumin 2.0 L Nasal Screen MRSA (PCR) POSITIVE A Nasal S. aureus Screen POSITIVE A Nasal MRSA/S.aureus Interp SEE NOTE Microbiology Microbiology Results: Microbiology 08/11/20 04:29 Sputum - Suctioned Gram Stain - Final 08/11/20 04:29 Sputum - Suctioned Sputum Culture - Final Proteus mirabilis 08/09/20 17:45 Blood - Venous Blood Culture - Final No growth after 5 days. 08/09/20 17:28 Blood - Venous Blood Culture - Final No growth after 5 days. 08/11/20 05:55 Urine Catheterized - Salas Catheter Urine Culture - Final Pseudomonas aeruginosa 08/11/20 04:39 Blood - Venous Blood Culture - Preliminary No growth after 48 hours. 08/11/20 04:35 Blood - Venous Blood Culture - Preliminary No growth after 48 hours. 08/09/20 21:00 Urine clean catch - Clean Catch Midstream Urine Culture - Final Pseudomonas aeruginosa Progress Note: A&P Assessment and plan (1) Metabolic acidosis: Status: Acute (2) Anemia: Status: Acute (3) Metabolic encephalopathy: Status: Acute (4) Acute respiratory failure with hypoxia: Status: Acute (5) Hypernatremia: Problem details: Due to free water deficit Can add free water Continue hypotonic fluids to correct pNa Goal Na <145 in 24 hours Status: Acute (6) UTI (urinary tract infection): Problem details: not acute issue,colonized with MDR organisms Status: Acute (7) Acute kidney injury superimposed on CKD: Problem details: Most likely has ATN Non oliguric Cr trending down BUN lagging behind No indication for dialysis yet Keep I > O and SBP > 100 Status: Acute (8) History of CVA (cerebrovascular accident): Status: Acute (9) Hypertension: Status: Acute (10) Dementia: Status: Acute (11) Chronic kidney disease (CKD): Status: Acute (12) Sepsis: Status: Acute (13) Pneumonia: Status: Acute (14) Renal failure (ARF), acute on chronic: Status: Acute Assessment and Plan: so the plan was was the addition of vancomycin today and probable chest x-ray in the morning with bedside swallow evaluation and begin to mobilize him to sit in a chair and possible consult with Interventional Radiology to see if source control namely a percutaneous drain in the ureteropelvic junction would be warranted Time Spent With Patient Time: Total time spent is greater than 50% in coordination of care (as documented) at patient's floor/unit and/or counseling patient: Total time spent with greater than 50% in coordination of care (as documented) at patient's floor/unit and/or counseling patient:: 35
--- NOTE | 2020-08-15 18:11 | PC.NURSE ---
Patient incontinent of stool - upon cleaning patient, this RN noticed a large plastic feeling material half way out of patients rectum - material removed and INSIDE UPHOLSTERER at bedside for exam. No bleeding/pain noted to rectal area. Will continue to monitor.
[2020-08-16] VITALS (21 sets, daily range): BP systolic 133–183; BP diastolic 45–94; PULSE 69–100; RESP 18–33; TEMP 36.6–38.1; O2SAT 91–99
[2020-08-16 06:00] LABS: Base Excess VBG -4.3 mmol/L; HCO3 VBG 18 mmol/L; Oxygen Saturation VBG 65.6 %; PCO2 VBG 25 mmhg; PO2 VBG 33 mmhg; pH VBG 7.48 (7.32-7.43)
[2020-08-16 06:15] LABS: Blood Urea Nitrogen 87 mg/dL (9-16)
[2020-08-16 06:16] LABS: Albumin Level 2.1 g/dL (3.5-5.0); Calcium 7.3 mg/dL (8.4-10.2); Carbon Dioxide 19 mmol/L (22-29); Chloride 121 mmol/L (96-108); Creatinine Clr Calc Pharmacy 17.9; Estimated Glomerular Filt Rate 26; Glucose Random 134 mg/dL (60-115); Magnesium 1.9 mg/dL (1.6-2.6); Phosphorus 2.7 mg/dL (2.7-4.5); Potassium 3.6 mmol/l (3.3-5.1)
[2020-08-16 06:26] LABS: Anion Gap 17 (12-20); Sodium 153 mmol/L (135-145)
[2020-08-16] MEDS: Caspofungin Acetate 50 MG in 0.9 % Sodium Chloride 250 ML 260 MG IV (08:22)
[2020-08-16] MEDS: Chlorhexidine Gluc Oral Rinse 15 ML MOUTHWASH BUCCAL (08:22)
[2020-08-16] MEDS: KCl 40 mEq in 5% Dex/0.45% Sod 40 MEQ/1,000 ML IV.SOLN 42 MEQ IVCONT (08:26)
[2020-08-16] MEDS: Clopidogrel Bisulfate 75 MG TABLET PO (08:26)
[2020-08-16] MEDS: 0.9 % Sodium Chloride Flush 3 ML SYRINGE IVFLUSH ×2 (08:27→13:40)
--- NOTE | 2020-08-16 09:21 | MHC.CLN ---
F/U PT EXTUBATED 08/14 REMAINS NPO TPN D15 AA5% RECEIVING AT 45CC/HR PROVIDES 767KCALS, 54G PROTEIN (1.0G/KG) RECOMMEND INCREASING TO 60CC/HR TO PROVIDE 1022KCALS, 72G PROTEIN (1.3G/KG) CHECK TRIGS-NOTED TRIGS 08/14 202; HOLD LIPIDS FOR NOW; REPLETE LYTES DISCUSSED WITH PHARMACY RD AVAILABLE VIA TIGER TEXT IF NEEDED FOLLOWING
--- NOTE | 2020-08-16 09:44 | PM.PNNEP ---
Subjective Subjective Interval history: 84-year-old male with left hydroureter and hydronephrosis which is chronic ever since radiation damage for his prostate CA Seen and examined events noted Physical Exam Vital Signs: Vital Signs: Vital Signs Temp Pulse Resp BP Pulse Ox 08/16/20 08:53 100.6 F H 90 27 H 155/83 H 96 08/16/20 08:00 100.4 F 100 30 H 155/83 H 94 08/16/20 07:00 100.4 F 93 33 H 133/85 91 L 08/16/20 06:00 98.1 F 93 33 H 148/91 H 91 L 08/16/20 05:00 100.4 F 96 21 H 163/94 H 94 08/16/20 04:00 100.4 F 95 28 H 156/87 H 95 08/16/20 03:00 100.2 F 87 30 H 155/72 H 95 08/16/20 02:00 100.2 F 86 26 H 156/66 H 95 08/16/20 01:00 100.2 F 94 22 H 157/87 H 94 08/15/20 23:45 100.2 F 73 25 H 170/83 H 93 08/15/20 22:56 100.4 F 88 21 H 160/84 H 94 08/15/20 22:00 75 24 H 160/84 H 94 08/15/20 21:00 70 22 H 173/83 H 95 08/15/20 19:45 100.2 F 79 24 H 155/81 H 95 08/15/20 19:00 100 F 71 18 155/81 H 95 08/15/20 17:53 27 L 24 H 142/65 H 95 08/15/20 17:00 99.7 F 86 25 H 153/55 H 95 08/15/20 15:53 99.9 F 70 21 H 162/67 H 100 08/15/20 15:00 64 17 162/67 H 99 08/15/20 14:00 99.7 F 67 26 H 141/77 H 99 08/15/20 12:57 99.7 F 65 21 H 136/72 99 08/15/20 12:00 99.7 F 73 22 H 181/74 H 95 08/15/20 11:00 77 24 H 122/59 L 97 08/15/20 10:00 63 18 155/52 H 93 Body Mass Index 21.7 Const: General: ill appearing Resp: Auscultation: rhonchi Cardio: Heart sounds: no rubs Neuro: Motor exam (neuro): No Asterixis during motor activity present Assessment & Plan Assessment and plan (1) Acute kidney injury superimposed on CKD: Problem details: Most likely has ATN Non oliguric Cr trending down BUN lagging behind No indication for dialysis yet Keep I > O and SBP > 100 Status: Acute (2) Hypernatremia: Problem details: Due to free water deficit Can add free water Continue hypotonic fluids to correct pNa Goal Na <145 in 24 hours Status: Acute (3) Anemia: Status: Acute (4) Metabolic acidosis: Status: Acute Assessment and Plan: 1. 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 HyperNa: FWD ..2-3 Liters REC: replace FWD and track SNa q 12 hrs as adjust replacement; no indication for HD; avoid NToxins Time Spent With Patient Time: Total time spent is greater than 50% in coordination of care (as documented) at patient's floor/unit and/or counseling patient:
[2020-08-16] MEDS: Heparin Sodium,Porcine 5,000 UNIT/ML VIAL 5000 UNIT SUBCUT ×2 (13:38→22:19)
--- NOTE | 2020-08-16 13:45 | PM.IDPN ---
Subjective Subjective Date of Service: 08/16/20 Interval History: patient remains with low grade temperature 100.6 no focal signs MRSA nares positive Sputum Klebsiella urine Pseudomonas auruginosa sensitive to Levaquin Objective Data Labs CBC & Chem 7: 08/15/20 05:13 08/16/20 05:42 Labs: Laboratory Results - last 24 hr 08/16/20 08/16/20 05:42 05:42 VBG pH 7.48 H VBG pCO2 25 VBG Oxygen Liters/Min Not Reportable VBG pO2 33 VBG HCO3 18 VBG O2 Saturation 65.6 VBG Base Excess -4.3 Sodium 153 H Potassium 3.6 Chloride 121 H Carbon Dioxide 19 L Anion Gap 17 BUN 87 H* Creatinine 2.37 H Estim Creat Clear Calc 17.9 Estimated GFR 26 Random Glucose 134 H Calcium 7.3 L Phosphorus 2.7 Magnesium 1.9 Albumin 2.1 L Microbiology Microbiology Results: Microbiology 08/15/20 06:50 Blood - Venous Blood Culture - Preliminary No growth after 24 hours. 08/15/20 06:50 Blood - Venous Blood Culture - Preliminary No growth after 24 hours. 08/11/20 04:39 Blood - Venous Blood Culture - Final No growth after 5 days. 08/11/20 04:35 Blood - Venous Blood Culture - Final No growth after 5 days. 08/11/20 04:29 Sputum - Suctioned Gram Stain - Final 08/11/20 04:29 Sputum - Suctioned Sputum Culture - Final Proteus mirabilis 08/09/20 17:45 Blood - Venous Blood Culture - Final No growth after 5 days. 08/09/20 17:28 Blood - Venous Blood Culture - Final No growth after 5 days. 08/11/20 05:55 Urine Catheterized - Salas Catheter Urine Culture - Final Pseudomonas aeruginosa 08/09/20 21:00 Urine clean catch - Clean Catch Midstream Urine Culture - Final Pseudomonas aeruginosa Physical Exam Vital Signs: Vital Signs: Vital Signs Temp Pulse Resp BP Pulse Ox 08/16/20 13:00 100.0 F 86 23 H 162/79 H 97 08/16/20 12:00 100.0 F 87 18 159/81 H 99 08/16/20 11:00 99.9 F 82 23 H 183/73 H 94 08/16/20 10:00 99.9 F 69 22 H 159/81 H 93 08/16/20 08:53 100.6 F H 90 27 H 155/83 H 96 08/16/20 08:00 100.4 F 100 30 H 155/83 H 94 08/16/20 07:00 100.4 F 93 33 H 133/85 91 L 08/16/20 06:00 98.1 F 93 33 H 148/91 H 91 L 08/16/20 05:00 100.4 F 96 21 H 163/94 H 94 08/16/20 04:00 100.4 F 95 28 H 156/87 H 95 08/16/20 03:00 100.2 F 87 30 H 155/72 H 95 08/16/20 02:00 100.2 F 86 26 H 156/66 H 95 08/16/20 01:00 100.2 F 94 22 H 157/87 H 94 08/15/20 23:45 100.2 F 73 25 H 170/83 H 93 08/15/20 22:56 100.4 F 88 21 H 160/84 H 94 08/15/20 22:00 75 24 H 160/84 H 94 08/15/20 21:00 70 22 H 173/83 H 95 08/15/20 19:45 100.2 F 79 24 H 155/81 H 95 08/15/20 19:00 100 F 71 18 155/81 H 95 08/15/20 17:53 27 L 24 H 142/65 H 95 08/15/20 17:00 99.7 F 86 25 H 153/55 H 95 08/15/20 15:53 99.9 F 70 21 H 162/67 H 100 08/15/20 15:00 64 17 162/67 H 99 08/15/20 14:00 99.7 F 67 26 H 141/77 H 99 Body Mass Index 21.7 Const: General: no acute distress Eyes: General: appearance normal, both eyes and all related structures Resp: Effort & Inspection: normal respiratory effort Auscultation: rhonchi right lower and vesicular breath sounds Cardio: Rate: regular rate Rhythm: regular rhythm GI: Inspection: Yes normal to inspection Skin: General skin exam: no rashes or lesions noted Extrem: General: Yes normal to inspection Assessment and Plan Assessment and plan (1) Acute respiratory failure with hypoxia: Problem details: Sputum PCR positive MRSA Also Proteus Status: Acute Assessment and Plan: Merem,day 3 and Vancomycin,day 1 Continue both for now Possible po Levaquin for 14 d total and Doxycycline when improved No signs of tanesha CXR,sputum overgrowth Stop Cancidas (2) Metabolic encephalopathy: Status: Acute (3) UTI (urinary tract infection): Problem details: Possible still colonized Would continue Merem Status: Acute (4) Acute kidney injury superimposed on CKD: Status: Acute Time Spent With Patient Time: Total time spent is greater than 50% in coordination of care (as documented) at patient's floor/unit and/or counseling patient: Time with patient: 15 - 24 minutes
--- NOTE | 2020-08-16 14:29 | PM.CCPN ---
Subjective Subjective Date of Service: 08/16/20 Interval History: Mr. Brady was admitted to the ICU on August 11 The patient is an 84-year-old male with past medical history as follows: 1. Dementia. 2. Urinary retention with chronic Salas, status post multiple urological procedures. 3. History of bladder stones. 4. History of ESBL UTI and recent treatment with Ceftin for VRE. 5. Hypertension. 6. CKD, stage 3. 7. Stroke February 2019, status post tPA. 8. Carotid stenosis, status post right carotid endarterectomy, 2018. The patient is a resident at [facility]. He was brought to the ED on August 09 with lethargy, confusion, and hypoxemia (85% on room air at [facility]). On arrival to the ED patient was also febrile with a fever of 101. RR was 25, Sat was 80% on room air. WBC was normal, sodium was 152, BUN/creat were 116/5.57 (baseline 1.4-1.9). U/A was positive for nitrites, leukocyte esterace, and WBC. Chest CT was read as showing RUL and RLL infiltrates. COVID-19 PCR negative. The patient was admitted to medicine and treated for sepsis, UTI, pneumonia (thought due to aspiration), and hypernatremia. He was treated with meropenem and fluids. Urine culture grew out a sensitive Pseudomonas. Code status was discussed with the family, and he was maintained with full code status. His BUN and creatinine crested on August 11 at 125/6.0, with a bicarb of 13, but he never became hyperkalemic. In the vice president corporate communications hours of August 11, the patient's clinical status deteriorated. He became febrile, hypotensive, tachypneic, and hypoxemic. After consultation with the family, he was intubated and admitted to the ICU. He required vasopressors briefly. It?s not clear to me what happened that morning such that his clinical status deteriorated so badly. But, his chest x-ray did not progress, and he was extubated on August 14. A nasal screen was positive for MRSA, so vancomycin was added. The patient was also put on caspofungin because of sputum showing an abundance of polys and yeast. Today on exam, the patient is breathing easy on room air. Sat is 97%. See vital signs below. The patient is obviously grossly demented. I can get him to shake his head yes or no in answer to a simple question, but I don?t know if his answer is truly meaningful. Occasionally he yells out. He seems to favor lying on his right side. There is no jugular venous distention with the head of the bed at 20-30 degrees. Chest is clear to auscultation bilaterally, with a normal expiratory phase. Heart tones are soft. Regular rate and rhythm, with normal-sounding S1 and S2, with no murmur or gallops. The abdomen is benign. He has no peripheral edema. He looks mildly cachectic. LABORATORY DATA: As below. Notably, sodium is up to 153. BUN and creatinine are further 87/2.3. Albumin is 2.1. IMPRESSION: 1. Dementia. 2. Probable superimposed metabolic encephalopathy 2? infection. 3. Chronic Salas with chronic left hydronephrosis. 4. UTI. Continue memopenam. Recheck U/A and culture. 5. GILMER. 2? sepsis and dehydration. Resolving with hydration. 6. Metabolic acidosis. 2? to above. 7. Anemia. Current Hb should be adequate. 8. Acute respiratory failure with hypoxemia. Resolved. 9. Pneumonia: Currently breathing easy, normal room air Sat, no cough. So he does not (currently) have pneumonia, no matter what the CXR shows. I?m not clear that he ever had pneumonia. Regardless, if he?s getting abx now for pneumonia, it shouldn?t continue for longer than another two days. 10. MRSA positive nasal swab. He definitely doesn?t have MRSA pneumonia, so there?s no indication for vancomycin, IMO. If there is an indication to treat him with an anti-MRSA antibiotic, I would suggest doxycycline (or maybe Bactrim). 11. Hypernatremia. Add free water via TPN. 12. Hypertension. Restart amolodipine and metoprolol from him Med Rec. 13. Protein calorie malnutrition. I would estimate moderate. Today should be his last day of TPN. He can continue with an oral diet tomorrow. Otherwise usual supportive care. The patient is stable for transfer to intermediate care. I will sign the patient out to the hospitalists. Time (including extended hospital chart review, and discussions with Dr. Dominguez, Dr. Saunders from IR, and transfer to hospitalist): 90 min. ([phone]). Physical Exam Vital Signs: Vital Signs: Vital Signs Temp Pulse Resp BP Pulse Ox 08/16/20 14:00 100.0 F 81 26 H 165/45 H 96 08/16/20 13:00 100.0 F 86 23 H 162/79 H 97 08/16/20 12:00 100.0 F 87 18 159/81 H 99 08/16/20 11:00 99.9 F 82 23 H 183/73 H 94 08/16/20 10:00 99.9 F 69 22 H 159/81 H 93 08/16/20 08:53 100.6 F H 90 27 H 155/83 H 96 08/16/20 08:00 100.4 F 100 30 H 155/83 H 94 08/16/20 07:00 100.4 F 93 33 H 133/85 91 L 08/16/20 06:00 98.1 F 93 33 H 148/91 H 91 L 08/16/20 05:00 100.4 F 96 21 H 163/94 H 94 08/16/20 04:00 100.4 F 95 28 H 156/87 H 95 08/16/20 03:00 100.2 F 87 30 H 155/72 H 95 08/16/20 02:00 100.2 F 86 26 H 156/66 H 95 08/16/20 01:00 100.2 F 94 22 H 157/87 H 94 08/15/20 23:45 100.2 F 73 25 H 170/83 H 93 08/15/20 22:56 100.4 F 88 21 H 160/84 H 94 08/15/20 22:00 75 24 H 160/84 H 94 08/15/20 21:00 70 22 H 173/83 H 95 08/15/20 19:45 100.2 F 79 24 H 155/81 H 95 08/15/20 19:00 100 F 71 18 155/81 H 95 08/15/20 17:53 27 L 24 H 142/65 H 95 08/15/20 17:00 99.7 F 86 25 H 153/55 H 95 08/15/20 15:53 99.9 F 70 21 H 162/67 H 100 08/15/20 15:00 64 17 162/67 H 99 Body Mass Index 21.7 Objective Data Labs CBC & Chem 7: 08/15/20 05:13 08/16/20 05:42 Labs: Laboratory Results - last 24 hr 08/16/20 08/16/20 05:42 05:42 VBG pH 7.48 H VBG pCO2 25 VBG Oxygen Liters/Min Not Reportable VBG pO2 33 VBG HCO3 18 VBG O2 Saturation 65.6 VBG Base Excess -4.3 Sodium 153 H Potassium 3.6 Chloride 121 H Carbon Dioxide 19 L Anion Gap 17 BUN 87 H* Creatinine 2.37 H Estim Creat Clear Calc 17.9 Estimated GFR 26 Random Glucose 134 H Calcium 7.3 L Phosphorus 2.7 Magnesium 1.9 Albumin 2.1 L Microbiology Microbiology Results: Microbiology 08/15/20 06:50 Blood - Venous Blood Culture - Preliminary No growth after 24 hours. 08/15/20 06:50 Blood - Venous Blood Culture - Preliminary No growth after 24 hours. 08/11/20 04:39 Blood - Venous Blood Culture - Final No growth after 5 days. 08/11/20 04:35 Blood - Venous Blood Culture - Final No growth after 5 days. 08/11/20 04:29 Sputum - Suctioned Gram Stain - Final 08/11/20 04:29 Sputum - Suctioned Sputum Culture - Final Proteus mirabilis 08/09/20 17:45 Blood - Venous Blood Culture - Final No growth after 5 days. 08/09/20 17:28 Blood - Venous Blood Culture - Final No growth after 5 days. 08/11/20 05:55 Urine Catheterized - Salas Catheter Urine Culture - Final Pseudomonas aeruginosa 08/09/20 21:00 Urine clean catch - Clean Catch Midstream Urine Culture - Final Pseudomonas aeruginosa Progress Note: A&P Time Spent With Patient Time: Total time spent is greater than 50% in coordination of care (as documented) at patient's floor/unit and/or counseling patient: Total time spent with greater than 50% in coordination of care (as documented) at patient's floor/unit and/or counseling patient:: 0
--- NOTE | 2020-08-16 15:19 | MHC.CM.PN ---
Patient remains in ICU. Patient extubated 08/14. Patient will be transferred to [facility]. Clinical updates sent to [facility]. Continue to monitor d/c needs.
[2020-08-16] MEDS: Metoprolol Tartrate 25 MG TABLET PO ×2 (15:47→22:18)
[2020-08-16] MEDS: amLODIPine Besylate 10 MG TABLET PO (15:47)
[2020-08-16] MEDS: Acetaminophen 325 MG TABLET 650 MG PO (19:55)
[2020-08-17] VITALS (9 sets, daily range): BP systolic 129–196; BP diastolic 60–90; PULSE 66–100; RESP 18–22; TEMP 36.2–37.1; O2SAT 92–96; BMI 25.5
--- NOTE | 2020-08-17 | CT_ITS ---
EXAMINATION: CT HEAD WITHOUT CONTRAST CLINICAL INFORMATION: Acute mental status change COMPARISON: Previous exam most recent May 2020 TECHNIQUE: Contiguous axial imaging was performed from the skull base to vertex without intravenous administration of contrast. This CT examination was performed using dose optimization techniques as appropriate, variously including the following: *Automated exposure control *Adjustment of mA and/or kV according to patient size (this includes techniques or standardized protocols for targeted exams where dose is matched to indication/reason for exam; i.e. extremities or head) *Use of iterative reconstruction technique DLP: 827 mGy-cm FINDINGS: Exam is limited due to motion artifact. There is no evidence of an extra-axial collection. There is no evidence of intra-axial or extra-axial hemorrhage. The ventricles and extra-axial CSF spaces are prominent suggestive of generalized atrophy. There is nonspecific periventricular white matter disease. There may be an old subcortical white matter infarct in the right parietal lobe. This appears unchanged. No mass, mass effect or acute infarct is seen. Review at bone windows is unremarkable. No skull fracture is seen. There is chronic sinus disease greatest in the right side is seen and bilateral ethmoid sinuses. Mastoid air cells and middle ears are clear. CT/CT head/brain wo con IMPRESSION: Limited exam due to motion. Generalized atrophy and nonspecific periventricular white matter disease. Probable old right parietal subcortical white matter infarct similar to previous exams. No acute infarct is seen. Chronic sinus disease.
[2020-08-17] MEDS: 0.9 % Sodium Chloride Flush 3 ML SYRINGE IVFLUSH ×3 (00:21→17:46)
[2020-08-17 06:25] LABS: Hematocrit 25.2 % (42-52); Hemoglobin 7.9 g/dl (14.0-18.0); Mean Corpuscular HGB Conc 31.3 g/dl (31.0-36.0); Mean Corpuscular Hemoglobin 23.9 pg (27.0-33.0); Mean Corpuscular Volume 76.4 fL (80-98); Mean Platelet Volume 10.6 fL (9.4-12.4); Platelet Count 333 X10*3/uL (160-400); Red Cell Distribution Width 18.8 % (11.0-16.0); White Blood Count 11.6 X10*3/uL (4.8-10.8)
[2020-08-17 06:56] LABS: Phosphorus 3.9 mg/dL (2.7-4.5)
[2020-08-17] MEDS: vancomycin HCL 750 MG in 0.9 % Sodium Chloride 250 ML 265 MG IV (08:33)
[2020-08-17] MEDS: Metoprolol Tartrate 25 MG TABLET PO ×2 (08:37→20:48)
[2020-08-17] MEDS: amLODIPine Besylate 10 MG TABLET PO (08:38)
[2020-08-17] MEDS: Clopidogrel Bisulfate 75 MG TABLET PO (08:38)
[2020-08-17 09:11] LABS: Anion Gap 17 (12-20); Blood Urea Nitrogen 83 mg/dL (9-16); Calcium 7.2 mg/dL (8.4-10.2); Carbon Dioxide 19 mmol/L (22-29); Chloride 124 mmol/L (96-108); Creatinine Clr Calc Pharmacy 19.2; Estimated Glomerular Filt Rate 28; Glucose Random 101 mg/dL (60-115); Potassium 3.9 mmol/l (3.3-5.1); Sodium 156 mmol/L (135-145)
--- NOTE | 2020-08-17 10:12 | PM.PNNEP ---
Subjective Subjective Interval history: Seen and examined. Taking PO puree Physical Exam Vital Signs: Vital Signs: Vital Signs Temp Pulse Resp BP Pulse Ox 08/17/20 08:38 77 177/84 H 08/17/20 08:37 92 177/84 H 08/17/20 07:57 97.1 F 77 18 177/84 H 92 08/17/20 04:06 97.9 F 72 18 186/90 H 92 08/16/20 23:24 98 F 77 22 H 151/82 H 92 08/16/20 22:18 82 140/70 H 08/16/20 20:27 82 140/70 H 08/16/20 19:40 98.8 F 83 18 182/84 H 95 08/16/20 16:00 100.4 F 90 29 H 156/87 H 95 08/16/20 15:47 79 172/85 H 08/16/20 15:00 99.9 F 80 28 H 172/85 H 97 08/16/20 14:00 100.0 F 81 26 H 165/45 H 96 08/16/20 13:00 100.0 F 86 23 H 162/79 H 97 08/16/20 12:00 100.0 F 87 18 159/81 H 99 08/16/20 11:00 99.9 F 82 23 H 183/73 H 94 Body Mass Index 25.5 Const: General: ill appearing Resp: Auscultation: rhonchi Cardio: Heart sounds: no rubs Neuro: Motor exam (neuro): No Asterixis during motor activity present Assessment & Plan Assessment and plan (1) Acute kidney injury superimposed on CKD: Status: Acute (2) Hypernatremia: Status: Acute (3) Anemia: Status: Acute (4) Metabolic acidosis: Status: Acute Assessment and Plan: 1. 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 HyperNa: FWD ..calc FWD approx 4 Liters REC: replace FWD and track SNa q 12 hrs as adjust replacement; no indication for HD; avoid NToxins Time Spent With Patient Time: Total time spent is greater than 50% in coordination of care (as documented) at patient's floor/unit and/or counseling patient:
--- NOTE | 2020-08-17 10:16 | P.ACPN_ITS ---
Advanced Care Planning Note Advanced Care Planning Note Time spent (in minutes): 0 Narrative: Yesterday afternoon I had a lengthy talk with Ning, the patient's [id number], about the patient's overall condition and his short- and long- term prognosis. I discussed with her that aspiration and malnutrition are expected phenomena in a patient with [place]' condition, namely stroke and dementia. I further voiced the opinion that the patient should definitely have DNR status, and that doing CPR on, or putting such a patient on a ventilator, was very much the wrong thing to do, considered by some in the specialty of critical care to be tantamount to criminal battery. I strongly encouraged her to talk to her ( 1 of the patient's sons) and the patient's other son and encourage them to establish DNR status. Ning called back later and asked us to change his code status to DNR. I neglected to write that order yesterday. I have therefore written that order this morning. Problems Discussed (1) Acute kidney injury superimposed on CKD: (2) Hypernatremia: (3) Anemia: (4) Metabolic acidosis:
[2020-08-17] MEDS: Dextrose 5 % 1,000 ML 150 ML IVCONT ×2 (10:18→17:46)
--- NOTE | 2020-08-17 10:18 | P.PNIM_ITS ---
Physical Exam Vital Signs: Vital Signs: Vital Signs Temp Pulse Resp BP Pulse Ox 08/17/20 08:38 77 177/84 H 08/17/20 08:37 92 177/84 H 08/17/20 07:57 97.1 F 77 18 177/84 H 92 08/17/20 04:06 97.9 F 72 18 186/90 H 92 08/16/20 23:24 98 F 77 22 H 151/82 H 92 08/16/20 22:18 82 140/70 H 08/16/20 20:27 82 140/70 H 08/16/20 19:40 98.8 F 83 18 182/84 H 95 08/16/20 16:00 100.4 F 90 29 H 156/87 H 95 08/16/20 15:47 79 172/85 H 08/16/20 15:00 99.9 F 80 28 H 172/85 H 97 08/16/20 14:00 100.0 F 81 26 H 165/45 H 96 08/16/20 13:00 100.0 F 86 23 H 162/79 H 97 08/16/20 12:00 100.0 F 87 18 159/81 H 99 08/16/20 11:00 99.9 F 82 23 H 183/73 H 94 Body Mass Index 25.5 General: lethargic, ill appearing Resp: rales CVS: S1,S2,RRR GI: soft, non tender, non distended Psych: impaired insight Resp: Effort & Inspection: normal respiratory effort, able to speak in complete sentences, abnormal respiratory pattern and Actively coughing Auscultation: clear to auscultation bilaterally, rales diffuse, rhonchi right lower, no wheezes, diminished lung sounds and vesicular breath sounds Objective Data Current Medications Generic Name Dose Route Start Last Admin Trade Name Freq PRN Reason Stop Dose Admin Amlodipine Besylate 10 mg 08/16/20 14:30 08/17/20 08:38 Amlodipine Besylate 10 Mg Tablet PO 10 mg DAILY [facility] Administration Protocol Clopidogrel Bisulfate 75 mg 08/10/20 09:00 08/17/20 08:38 Clopidogrel Bisulfate 75 Mg Tablet PO 75 mg DAILY [facility] Administration Heparin Sodium (Porcine) 5,000 unit 08/09/20 23:21 08/16/20 22:19 Heparin Sodium,Porcine 5,000 Unit/Ml Vial SUBCUT 5,000 unit Q12H [facility] Administration Meropenem 500 mg/ Sodium 50 mls @ 100 mls/hr 08/14/20 01:00 08/17/20 02:46 Chloride IV Infused Q12H [facility] Infusion Vancomycin HCl 750 mg/ Sodium 265 mls @ 265 mls/hr 08/19/20 09:00 Chloride IV Q48H [facility] Dextrose 1,000 mls @ 150 mls/hr 08/17/20 09:45 D5w IVCONT .Q6H40M [facility] Metoprolol Tartrate 25 mg 08/16/20 14:30 08/17/20 08:37 Metoprolol Tartrate 25 Mg Tablet PO 25 mg BID [facility] Administration Protocol Omeprazole 20 mg 08/12/20 09:00 08/17/20 08:37 Omeprazole 20 Mg/10 Ml Susp.Recon PO 20 mg DAILY [facility] Administration Sodium Chloride 3 ml 08/10/20 00:00 08/17/20 08:38 0.9 % Sodium Chloride Flush 3 Ml Syringe IVFLUSH 3 ml QSHIFT [facility] Administration Labs CBC & Chem 7: 08/17/20 05:20 08/17/20 05:20 Microbiology Microbiology Results: Microbiology 08/15/20 06:50 Blood - Venous Blood Culture - Preliminary No growth after 48 hours. 08/15/20 06:50 Blood - Venous Blood Culture - Preliminary No growth after 48 hours. 08/11/20 04:39 Blood - Venous Blood Culture - Final No growth after 5 days. 08/11/20 04:35 Blood - Venous Blood Culture - Final No growth after 5 days. 08/11/20 04:29 Sputum - Suctioned Gram Stain - Final 08/11/20 04:29 Sputum - Suctioned Sputum Culture - Final Proteus mirabilis 08/09/20 17:45 Blood - Venous Blood Culture - Final No growth after 5 days. 08/09/20 17:28 Blood - Venous Blood Culture - Final No growth after 5 days. 08/11/20 05:55 Urine Catheterized - Salas Catheter Urine Culture - Final Pseudomonas aeruginosa 08/09/20 21:00 Urine clean catch - Clean Catch Midstream Urine Culture - Final Pseudomonas aeruginosa Assessment and Plan (1) Hypernatremia: Status: Acute (2) UTI (urinary tract infection): Problem details: Possible still colonized Would continue Merem Status: Acute (3) Acute kidney injury superimposed on CKD: Status: Acute (4) Dementia: Status: Acute (5) Sepsis: Status: Acute (6) Pneumonia: Status: Acute (7) Acute respiratory failure with hypoxia: Problem details: Sputum PCR positive MRSA Also Proteus Status: Acute (8) Metabolic encephalopathy: Status: Acute (9) History of CVA (cerebrovascular accident): Status: Acute (10) Renal failure (ARF), acute on chronic: Status: Acute (11) Hypertension: Status: Acute Assessment and Plan: 84-year-old male with past medical history of recurrent UTIs, and dementia presented to the hospital with lethargy, and hypoxia. patient then declined and required intensive care and intubation along with brief period Of vasopressors. Course was complicated by acute on chronic kidney injury which has since returned to baseline. Patient was successfully extubated, is now back on medical floor, but has been significantly lethargic and poor p.o. intake with hypernatremia. severe Sepsis poa due to aspiration pneumonia + UTI complicated by GILMER on CKD, metabolic encephalopathy, and acute hypoxic respiratory failure, and hypernatremia now extubated, on medical floor, I see reports discussion with family that patient is now DNR DNI continue vancomycin and meropenem id follow-up patient now with regular diet but no liquids allowed will DC TPN, start D5W at 150 cc/hour, BMP q.12 nephrology follow-up dementia at baseline, patient is wheelchair-bound due to history of CVA, recognizes family members, has a decent appetite, poor short-term memory, poor insight poor overall prognosis
[2020-08-17] MEDS: Heparin Sodium,Porcine 5,000 UNIT/ML VIAL 5000 UNIT SUBCUT (10:20)
[2020-08-17 19:22] LABS: Anion Gap 18 (12-20); Blood Urea Nitrogen 75 mg/dL (9-16); Calcium 7.2 mg/dL (8.4-10.2); Carbon Dioxide 16 mmol/L (22-29); Chloride 123 mmol/L (96-108); Creatinine Clr Calc Pharmacy 20.1; Estimated Glomerular Filt Rate 30; Glucose Random 129 mg/dL (60-115); Sodium 153 mmol/L (135-145)
[2020-08-17] MEDS: Acetaminophen 325 MG TABLET 650 MG PO (20:47)
[2020-08-17 23:03] LABS: Anion Gap 16 (12-20); Blood Urea Nitrogen 73 mg/dL (9-16); Carbon Dioxide 18 mmol/L (22-29); Chloride 121 mmol/L (96-108); Creatinine Clr Calc Pharmacy 20.5; Estimated Glomerular Filt Rate 30; Glucose Fasting 116 mg/dL (60-99); Potassium 3.7 mmol/l (3.3-5.1); Sodium 151 mmol/L (135-145)
[2020-08-18] VITALS (9 sets, daily range): BP systolic 156–185; BP diastolic 72–92; PULSE 66–80; RESP 18–20; TEMP 36.2–37.1; O2SAT 90–98
--- NOTE | 2020-08-18 | XR_ITS ---
EXAMINATION: XR CHEST CLINICAL INFORMATION: Pneumonia COMPARISON: Previous chest x-ray most recent 08/13/2020 TECHNIQUE: Frontal view of the chest was obtained. FINDINGS: The endotracheal tube, nasogastric tube and left central line have been removed. There is a new right upper extremity PICC line with tip projecting over the cavoatrial junction. The cardiac and mediastinal contours are stable. The thoracic aorta may be ectatic. There is bilateral bronchial wall thickening and airspace disease suggestive of bronchopneumonia. This appears slightly increased from previous exam 08/13/2020 however some of these changes may be due to lower lung volumes on the current exam. There is no pleural effusion or pneumothorax. There are degenerative changes at the shoulder joints. XR/XR chest 1V IMPRESSION: Bilateral bronchial wall thickening and airspace disease suggestive of bronchopneumonia. This appears slightly increased from most recent exam 08/13/2020 however this may be due to lower lung volumes on the current exam.
[2020-08-18] MEDS: Heparin Sodium,Porcine 5,000 UNIT/ML VIAL 5000 UNIT SUBCUT ×2 (00:45→12:29)
[2020-08-18] MEDS: Dextrose 5 % 1,000 ML 150 ML IVCONT ×3 (00:50→17:40)
[2020-08-18 06:22] LABS: MANUAL DIFF FLAG NO
[2020-08-18 07:03] LABS: Basophils Percent Auto 0.1 % (0-2); Eosinophils Absolute Auto 0.3 X10*3/uL (0.0-0.4); Eosinophils Percent Auto 2.9 % (0-4); Hematocrit 24.5 % (42-52); Hemoglobin 7.6 g/dl (14.0-18.0); Imm Gran Abs Auto 0.11 X10*3/uL (0.00-0.03); Imm Gran Pct Auto 1.1 % (0.0-0.4); Lymphocytes Absolute Auto 1.1 X10*3/uL (1.2-4.9); Lymphocytes Percent Auto 10.4 % (20-40); Mean Corpuscular Volume 77.3 fL (80-98); Mean Platelet Volume 10.6 fL (9.4-12.4); Monocytes Absolute Auto 0.6 X10*3/uL (0.1-1.2); Monocytes Percent Auto 5.7 % (2-11); Neutrophils Absolute Auto 8.3 X10*3/uL (2.0-8.3); Neutrophils Percent Auto 79.8 % (45-73); Platelet Count 338 X10*3/uL (160-400); Red Blood Count 3.17 X10*6/uL (4.60-5.80); Red Cell Distribution Width 19.2 % (11.0-16.0); White Blood Count 10.4 X10*3/uL (4.8-10.8)
[2020-08-18 07:11] LABS: Anion Gap 16 (12-20); Blood Urea Nitrogen 67 mg/dL (9-16); Calcium 6.9 mg/dL (8.4-10.2); Carbon Dioxide 18 mmol/L (22-29); Chloride 118 mmol/L (96-108); Creatinine Clr Calc Pharmacy 22.3; Estimated Glomerular Filt Rate 33; Glucose Fasting 101 mg/dL (60-99); Potassium 3.7 mmol/l (3.3-5.1); Sodium 148 mmol/L (135-145)
--- NOTE | 2020-08-18 07:34 | PC.NURSE ---
pt has new blister o0n left heel blue boot applied and foam dsg
[2020-08-18] MEDS: Metoprolol Tartrate 25 MG TABLET PO ×2 (08:56→22:08)
[2020-08-18] MEDS: Clopidogrel Bisulfate 75 MG TABLET PO (08:56)
[2020-08-18] MEDS: amLODIPine Besylate 10 MG TABLET PO (08:57)
--- NOTE | 2020-08-18 11:52 | P.PNNP_ITS ---
Subjective Subjective Interval history: Seen and examined. Taking PO puree . TPN off Looks brighter today SNa down to 148 this am Physical Exam Vital Signs: Vital Signs: Vital Signs Temp Pulse Resp BP Pulse Ox 08/18/20 08:57 73 185/92 H 08/18/20 08:56 73 185/92 H 08/18/20 08:00 97.6 F 73 18 185/92 H 94 08/18/20 03:25 98.2 F 66 18 179/92 H 92 08/17/20 23:44 98.3 F 66 18 163/83 H 96 08/17/20 20:48 84 176/90 H 08/17/20 19:02 98.7 F 100 22 H 196/87 H 92 08/17/20 15:15 97.5 F 94 18 155/77 H 94 Body Mass Index 25.5 General: lethargic, ill appearing Resp: rales CVS: S1,S2,RRR GI: soft, non tender, non distended Psych: impaired insight Const: Other: he still remains awake and responsive skin is intact just mild redness overlying the coccyx otherwise no skin disruption no livedo no acrocyanosis and vital signs of an exc ellent cardiac exam with normal S1 and normal S2 with no gallops or murmurs chest with bilateral rhonchi consistent with some proximal airway secretions abdomen benign no bruits no tenderness no organomegaly General: no acute distress, in distress, confusion, ill appearing and lethargic Nutritional Appearance: average body habitus and malnourished Orientation/consciousness: No oriented to person, No oriented to place, No oriented to time, confusion and lethargic Limitations: altered mental status HENMT: Head: Yes normal to inspection Face and sinus: Yes normal facial exam Mouth: mucous membranes dry Throat: Yes posterior oropharynx normal Eyes: General: appearance normal, both eyes and all related structures Pupils: Equal, round and reactive pupils present Neck: Neck: Yes normal visual inspection, Yes full ROM and Yes no lymphadenopathy Chest: Chest palpation & inspection: normal inspection of the chest Resp: Effort & Inspection: normal respiratory effort, able to speak in complete sentences, abnormal respiratory pattern and Actively coughing Auscultation: clear to auscultation bilaterally, rales diffuse, rhonchi right lower, no wheezes, diminished lung sounds and vesicular breath sounds Cardio: Rate: regular rate and tachycardic Rhythm: regular rhythm Heart sounds: S1 normal heart sound present, S2 normal heart sound present and no rubs GI: Inspection: Yes normal to inspection Palpation (GI): Soft to palpation and nontender Percussion: Yes normal to percussion Auscultation: normal bowel sounds : Other: Salas catheter in place General: Yes no CVA tenderness Male General Exam: Yes normal external exam Back/Spine/Pelvis: Back: no CVA tenderness Skin: General skin exam: no rashes or lesions noted Hair: normal Neuro: General: No oriented to person, No oriented to place, No oriented to ti me and confusion Cranial nerves: Yes CN's II-XII intact bilaterally and Yes Equal, round and reactive pupils present Cognition (Neuro): normal cognition Motor exam (neuro): 5/5 motor strength present throughout ( no focal deficit), Motor abnormalities not present and No Asterixis during motor activity present Extrem: General: Yes normal to inspection and Yes no pedal edema Assessment & Plan Assessment and plan (1) Acute kidney injury superimposed on CKD: Status: Acute (2) Hypernatremia: Status: Acute (3) Anemia: Status: Acute (4) Metabolic acidosis: Status: Acute Assessment and Plan: 1. 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 HyperNa: imporving with IVF REC: cont ot replace FWD but decrase rate as getting close to eunatremia and track SNa q 12 hrs as adjust replacement; no indication for HD; avoid NToxins Time Spent With Patient Time: Total time spent is greater than 50% in coordination of care (as d ocumented) at patient's floor/unit and/or counseling patient:
--- NOTE | 2020-08-18 12:10 | MHC.CM.PN ---
ICU TX DP [facility] via ambulance. Patient came from [facility]. He will not return. CAROLANN is following. Update sent to facility. CM will follow.
[2020-08-18] MEDS: Doxycycline Hyclate 100 MG in 0.9 % Sodium Chloride 250 ML 166.67 MG IV (12:28)
--- NOTE | 2020-08-18 13:33 | P.PNIM_ITS ---
Subjective Subjective Date of Service: 08/18/20 Interval History: Patient seen and examined at bedside patient is more awake and alert today Constitutional Constitutional: Reports weakness Cardiovascular Cardiovascular: Reports dyspnea Respiratory Respiratory: Reports dyspnea Gastrointestinal Gastrointestinal: Denies vomiting Neurologic Neurologic: Reports weakness Physical Exam Vital Signs: Vital Signs: Vital Signs Temp Pulse Resp BP Pulse Ox 08/18/20 12:00 97.6 F 71 20 176/75 H 98 08/18/20 08:57 73 185/92 H 08/18/20 08:56 73 185/92 H 08/18/20 08:00 97.6 F 73 18 185/92 H 94 08/18/20 03:25 98.2 F 66 18 179/92 H 92 08/17/20 23:44 98.3 F 66 18 163/83 H 96 08/17/20 20:48 84 176/90 H 08/17/20 19:02 98.7 F 100 22 H 196/87 H 92 08/17/20 15:15 97.5 F 94 18 155/77 H 94 Body Mass Index 25.5 General: lethargic, ill appearing Resp: rales CVS: S1,S2,RRR GI: soft, non tender, non distended Psych: impaired insight Const: Other: alert but not oriented Objective Data Current Medications Generic Name Dose Route Start Last Admin Trade Name Chrisq PRN Reason Stop Dose Admin Amlodipine Besylate 10 mg 08/16/20 14:30 08/18/20 08:57 Amlodipine Besylate 10 Mg Tablet PO 10 mg DAILY SHANNON Administration Protocol Clopidogrel Bisulfate 75 mg 08/10/20 09:00 08/18/20 08:56 Clopidogrel Bisulfate 75 Mg Tablet PO 75 mg DAILY SHANNON Administration Heparin Sodium (Porcine) 5,000 unit 08/09/20 23:21 08/18/20 12:29 Heparin Sodium,Porcine 5,000 Unit/Ml Vial SUBCUT 5,000 unit Q12H SHANNON Administration Meropenem 500 mg/ Sodium 50 mls @ 100 mls/hr 08/14/20 01:00 08/18/20 02:53 Chloride IV Infused Q12H SHANNON Infusion Dextrose 1,000 mls @ 150 mls/hr 08/17/20 09:45 08/18/20 12:28 D5w IVCONT 0 mls/hr .Q6H40M SHANNON Infusion Doxycycline Hyclate 100 mg/ 250 mls @ 166.67 mls/hr 08/18/20 12:00 08/18/20 12:28 Sodium Chloride IV 166.67 mls/hr Q12H SHANNON Administration Metoprolol Tartrate 25 mg 08/16/20 14:30 08/18/20 08:56 Metoprolol Tartrate 25 Mg Tablet PO 25 mg BID SHANNON Administration Protocol Omeprazole 20 mg 08/12/20 09:00 08/18/20 08:57 Omeprazole 20 Mg/10 Ml Susp.Recon PO 20 mg DAILY SHANNON Administration Sodium Chloride 3 ml 08/10/20 00:00 08/18/20 08:56 0.9 % Sodium Chloride Flush 3 Ml Syringe IVFLUSH Not Given QSHIFT [facility] Labs CBC & Chem 7: 08/18/20 05:21 08/18/20 05:21 Microbiology Microbiology Results: Microbiology 08/15/20 06:50 Blood - Venous Blood Culture - Preliminary No growth after 48 hours. 08/15/20 06:50 Blood - Venous Blood Culture - Preliminary No growth after 48 hours. 08/11/20 04:39 Blood - Venous Blood Culture - Final No growth after 5 days. 08/11/20 04:35 Blood - Venous Blood Culture - Final No growth after 5 days. 08/11/20 04:29 Sputum - Suctioned Gram Stain - Final 08/11/20 04:29 Sputum - Suctioned Sputum Culture - Final Proteus mirabilis 08/09/20 17:45 Blood - Venous Blood Culture - Final No growth after 5 days. 08/09/20 17:28 Blood - Venous Blood Culture - Final No growth after 5 days. 08/11/20 05:55 Urine Catheterized - Salas Catheter Urine Culture - Final Pseudomonas aeruginosa 08/09/20 21:00 Urine clean catch - Clean Catch Midstream Urine Culture - Final Pseudomonas aeruginosa Assessment and Plan (1) Hypernatremia: Status: Acute (2) UTI (urinary tract infection): Problem details: Possible still colonized Would continue Merem Status: Acute (3) Acute kidney injury superimposed on CKD: Status: Acute (4) Dementia: Status: Acute (5) Sepsis: Status: Acute (6) Pneumonia: Status: Acute (7) Acute respiratory failure with hypoxia: Problem details: Sputum PCR positive MRSA Also Proteus Status: Acute (8) Metabolic encephalopathy: Status: Acute (9) History of CVA (cerebrovascular accident): Status: Acute (10) Renal failure (ARF), acute on chronic: Status: Acute (11) Hypertension: Status: Acute Assessment and Plan: 84-year-old male with past medical history of recurrent UTIs, and dementia presented to the hospital with lethargy, and hypoxia. patient then declined and required intensive care and intubation along with brief period Of vasopressors. Course was complicated by acute on chronic kidney injury which has since returned to baseline. Patient was successfully extubated, is now back on medical floor, but has been significantly lethargic and poor p.o. intake with hypernatremia. severe Sepsis poa due to aspiration pneumonia + UTI complicated by GILMER on CKD, metabolic encephalopathy, and acute hypoxic respiratory failure, and hypernatremia continue vancomycin and meropenem day 5/7 id following poor p.o. intake improving TPN stopped now on regular diet , p.o. intake improving hypernatremia sodium trending down continue D5W monitor sodium level nephrology follow-up Dementia at baseline, patient is wheelchair-bound due to history of CVA, recognizes family members, has a decent appetite, poor short-term memory, poor insight poor overall prognosis
[2020-08-19] VITALS (7 sets, daily range): BP systolic 128–176; BP diastolic 63–92; PULSE 58–74; RESP 16–20; TEMP 36.2–36.6; O2SAT 92–97; BMI 25.7
[2020-08-19] MEDS: Dextrose 5 % 1,000 ML 150 ML IVCONT (00:24)
[2020-08-19] MEDS: Heparin Sodium,Porcine 5,000 UNIT/ML VIAL 5000 UNIT SUBCUT ×3 (00:33→22:41)
[2020-08-19] MEDS: Doxycycline Hyclate 100 MG in 0.9 % Sodium Chloride 250 ML 166.67 MG IV ×2 (00:33→12:23)
[2020-08-19] MEDS: 0.9 % Sodium Chloride Flush 3 ML SYRINGE IVFLUSH ×4 (00:34→22:42)
[2020-08-19 03:11] LABS: Anion Gap 17 (12-20); Carbon Dioxide 17 mmol/L (22-29); Chloride 116 mmol/L (96-108); Sodium 146 mmol/L (135-145)
[2020-08-19] MEDS: amLODIPine Besylate 10 MG TABLET PO (08:34)
[2020-08-19] MEDS: Clopidogrel Bisulfate 75 MG TABLET PO (08:34)
[2020-08-19] MEDS: Metoprolol Tartrate 25 MG TABLET PO ×2 (08:34→22:41)
[2020-08-19 08:43] LABS: MANUAL DIFF FLAG NO
[2020-08-19 08:53] LABS: Basophils Percent Auto 0.2 % (0-2); Eosinophils Absolute Auto 0.3 X10*3/uL (0.0-0.4); Eosinophils Percent Auto 2.2 % (0-4); Hematocrit 24.5 % (42-52); Hemoglobin 7.5 g/dl (14.0-18.0); Imm Gran Pct Auto 0.9 % (0.0-0.4); Lymphocytes Absolute Auto 1.2 X10*3/uL (1.2-4.9); Lymphocytes Percent Auto 10.4 % (20-40); Mean Corpuscular HGB Conc 30.6 g/dl (31.0-36.0); Mean Corpuscular Hemoglobin 23.6 pg (27.0-33.0); Mean Platelet Volume 10.7 fL (9.4-12.4); Monocytes Absolute Auto 0.7 X10*3/uL (0.1-1.2); Monocytes Percent Auto 5.9 % (2-11); Neutrophils Absolute Auto 9.2 X10*3/uL (2.0-8.3); Neutrophils Percent Auto 80.4 % (45-73); Platelet Count 389 X10*3/uL (160-400); Red Blood Count 3.18 X10*6/uL (4.60-5.80); Red Cell Distribution Width 19.4 % (11.0-16.0); White Blood Count 11.4 X10*3/uL (4.8-10.8)
[2020-08-19 09:28] LABS: Vancomycin Random 12.8 mcg/mL (15-20)
--- NOTE | 2020-08-19 10:22 | FL_ITS ---
EXAMINATION: FL MODIFIED BARIUM SWALLOW CLINICAL INFORMATION: Difficulty swallowing. COMPARISON: None TECHNIQUE: Modified barium swallow examination is performed with imaging in the lateral view and the presence of the speech pathologist using a variety of barium consistencies. The exam is performed with fluoroscopic evaluation, videofluoroscopy, and some fluoroscopic spot views. Fluoroscopy time: 1.5 minutes DAP: 0.784 Gycm2 Fluoroscopic spot images: 2 FINDINGS: There is variable posterior lingual escape with barium extending over posterior tongue with some pooling in the vallecula and piriform sinuses prior to intentional initiation of swallowing. Despite this, there is no laryngeal penetration or aspiration. No nasopharyngeal penetration. No significant retention of contrast after swallowing. See speech pathologist report for further assessment and recommendation. FL/FL barium swallow modified IMPRESSION: 1. Intermittent posterior lingual escape with contrast pooling in vallecula and piriform sinuses prior to initiation of swallowing. 2. No laryngeal penetration or aspiration. 3. No retention of contrast in vallecula or piriform sinuses after swallowing. 4. See speech pathologist report for further assessment and recommendation.
--- NOTE | 2020-08-19 12:45 | PM.PNNEP ---
Subjective Subjective Interval history: Patient seen and examined at bedside Still on puree diet patient is more awake and alert today Physical Exam Vital Signs: Vital Signs: Vital Signs Temp Pulse Resp BP Pulse Ox 08/19/20 12:00 98 F 58 18 128/63 97 08/19/20 08:34 72 166/92 H 08/19/20 08:00 97.4 F 72 18 166/92 H 97 08/19/20 04:00 97.5 F 73 16 145/74 H 94 08/18/20 23:35 98.7 F 80 18 156/72 H 90 L 08/18/20 22:08 77 164/82 H 08/18/20 19:41 97.5 F 73 19 160/75 H 92 08/18/20 16:00 97.2 F 73 20 160/90 H 93 Body Mass Index 25.7 General: lethargic, ill appearing Resp: rales CVS: S1,S2,RRR GI: soft, non tender, non distended Psych: impaired insight Const: Other: he still remains awake and responsive skin is intact just mild redness overlying the coccyx otherwise no skin disruption no livedo no acrocyanosis and vital signs of an exc ellent cardiac exam with normal S1 and normal S2 with no gallops or murmurs chest with bilateral rhonchi consistent with some proximal airway secretions abdomen benign no bruits no tenderness no organomegaly General: no acute distress, in distress, confusion, ill appearing and lethargic Nutritional Appearance: average body habitus and malnourished Orientation/consciousness: No oriented to person, No oriented to place, No oriented to time, confusion and lethargic Limitations: altered mental status HENMT: Head: Yes normal to inspection Face and sinus: Yes normal facial exam Mouth: mucous membranes dry Throat: Yes posterior oropharynx normal Eyes: General: appearance normal, both eyes and all related structures Pupils: Equal, round and reactive pupils present Neck: Neck: Yes normal visual inspection, Yes full ROM and Yes no lymphadenopathy Chest: Chest palpation & inspection: normal inspection of the chest Resp: Effort & Inspection: normal respiratory effort, able to speak in complete sentences, abnormal respiratory pattern and Actively coughing Auscultation: clear to auscultation bilaterally, rales diffuse, rhonchi right lower, no wheezes, diminished lung sounds and vesicular breath sounds Cardio: Rate: regular rate and tachycardic Rhythm: regular rhythm Heart sounds: S1 normal heart sound present, S2 normal heart sound present and no rubs GI: Inspection: Yes normal to inspection Palpation (GI): Soft to palpation and nontender Percussion: Yes normal to percussion Auscultation: normal bowel sounds : Other: Salas catheter in place General: Yes no CVA tenderness Male General Exam: Yes normal external exam Back/Spine/Pelvis: Back: no CVA tenderness Skin: General skin exam: no rashes or lesions noted Hair: normal Neuro: General: No oriented to person, No oriented to place, No oriented to time and confusion Cranial nerves: Yes CN's II-XII intact bilaterally and Yes Equal, round and reactive pupils present Cognition (Neuro): normal cognition Motor exam (neuro): 5/5 motor strength present throughout ( no focal deficit), Motor abnormalities not present and No Asterixis during motor activity present Extrem: General: Yes normal to inspection and Yes no pedal edema Assessment & Plan Assessment and plan (1) Acute kidney injury superimposed on CKD: Status: Acute (2) Hypernatremia: Status: Acute (3) Anemia: Status: Acute (4) Metabolic acidosis: Status: Acute Assessment and Plan: 1. 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 HyperNa: imporving with IVF Disc: may need GTube if cont to be unable to take PO liquids o/w would need [place] for IVF ..hopefully he will be able to take PO fluids soon REC: cont ot replace FWD but decrase rate as getting close to eunatremia and track SNa q 12 hrs as adjust replacement; no indication for HD; avoid NToxins Time Spent With Patient Time: Total time spent is greater than 50% in coordination of care (as documented) at patient's floor/unit and/or counseling patient:
--- NOTE | 2020-08-19 15:50 | HO.PM.IMPN ---
Subjective Subjective Date of Service: 08/19/20 Interval History: Patient seen and examined at bedside patient reports cough Constitutional Constitutional: Reports weakness Cardiovascular Cardiovascular: Reports dyspnea Respiratory Respiratory: Reports cough and Reports dyspnea Gastrointestinal Gastrointestinal: Denies vomiting Neurologic Neurologic: Reports weakness Physical Exam Vital Signs: Vital Signs: Last Vital Signs Temp 97.1 F 08/19/20 15:25 Pulse 67 08/19/20 15:25 Resp 18 08/19/20 15:25 BP 156/71 H 08/19/20 15:25 Pulse Ox 92 08/19/20 15:25 Body Mass Index 25.7 General: lethargic, ill appearing Resp: rales CVS: S1,S2,RRR GI: soft, non tender, non distended Psych: impaired insight Const: Other: alert but not oriented Objective Data Current Medications Generic Name Dose Route Start Last Admin Trade Name Freq PRN Reason Stop Dose Admin Amlodipine Besylate 10 mg 08/16/20 14:30 08/19/20 08:34 Amlodipine Besylate 10 Mg Tablet PO 10 mg DAILY SHANNON Administration Protocol Clopidogrel Bisulfate 75 mg 08/10/20 09:00 08/19/20 08:34 Clopidogrel Bisulfate 75 Mg Tablet PO 75 mg DAILY SHANNON Administration Heparin Sodium (Porcine) 5,000 unit 08/09/20 23:21 08/19/20 12:24 Heparin Sodium,Porcine 5,000 Unit/Ml Vial SUBCUT 5,000 unit Q12H SHANNON Administration Meropenem 500 mg/ Sodium 50 mls @ 100 mls/hr 08/14/20 01:00 08/19/20 14:31 Chloride IV Infused Q12H SHANNON Infusion Dextrose 1,000 mls @ 100 mls/hr 08/17/20 09:45 08/19/20 14:58 D5w IVCONT Not Given .Q10H SHANNON Doxycycline Hyclate 100 mg/ 250 mls @ 166.67 mls/hr 08/18/20 12:00 08/19/20 13:59 Sodium Chloride IV Infused Q12H SHANNON Infusion Metoprolol Tartrate 25 mg 08/16/20 14:30 08/19/20 08:34 Metoprolol Tartrate 25 Mg Tablet PO 25 mg BID SHANNON Administration Protocol Omeprazole 20 mg 08/12/20 09:00 08/19/20 09:46 Omeprazole 20 Mg/10 Ml Susp.Recon PO 20 mg DAILY SHANNON Administration Sodium Chloride 3 ml 08/10/20 00:00 08/19/20 15:42 0.9 % Sodium Chloride Flush 3 Ml Syringe IVFLUSH 3 ml QSHIFT SHANNON Administration Labs CBC & Chem 7: 08/19/20 08:16 08/19/20 02:39 Labs: Laboratory Results - last 24 hr 08/19/20 08/19/20 08/19/20 02:39 08:03 08:16 WBC 11.4 H RBC 3.18 L Hgb 7.5 L Hct 24.5 L MCV 77.0 L MCH 23.6 L MCHC 30.6 L RDW 19.4 H Plt Count 389 MPV 10.7 Immature Gran % (Auto) 0.9 H Neut % (Auto) 80.4 H Lymph % (Auto) 10.4 L [place] % (Auto) 5.9 Eos % (Auto) 2.2 Baso % (Auto) 0.2 Lymph # (Auto) 1.2 [place] # (Auto) 0.7 Eos # (Auto) 0.3 Baso # (Auto) 0.0 Abs Immat Gran (auto) 0.10 H Absolute Neuts (auto) 9.2 H Absolute Nucleated RBC 0.000 Nucleated RBC % (auto) 0.0 Sodium 146 H Potassium 4.0 Chloride 116 H Carbon Dioxide 17 L Anion Gap 17 Random Vancomycin 12.8 L Microbiology Microbiology Results: Microbiology 08/15/20 06:50 Blood - Venous Blood Culture - Preliminary No growth after 48 hours. 08/15/20 06:50 Blood - Venous Blood Culture - Preliminary No growth after 48 hours. 08/11/20 04:39 Blood - Venous Blood Culture - Final No growth after 5 days. 08/11/20 04:35 Blood - Venous Blood Culture - Final No growth after 5 days. 08/11/20 04:29 Sputum - Suctioned Gram Stain - Final 08/11/20 04:29 Sputum - Suctioned Sputum Culture - Final Proteus mirabilis 08/09/20 17:45 Blood - Venous Blood Culture - Final No growth after 5 days. 08/09/20 17:28 Blood - Venous Blood Culture - Final No growth after 5 days. 08/11/20 05:55 Urine Catheterized - Salas Catheter Urine Culture - Final Pseudomonas aeruginosa 08/09/20 21:00 Urine clean catch - Clean Catch Midstream Urine Culture - Final Pseudomonas aeruginosa Assessment and Plan (1) Hypernatremia: Status: Acute (2) UTI (urinary tract infection): Problem details: Possible still colonized Would continue Merem Status: Acute (3) Acute kidney injury superimposed on CKD: Status: Acute (4) Dementia: Status: Acute (5) Sepsis: Status: Acute (6) Pneumonia: Status: Acute (7) Acute respiratory failure with hypoxia: Problem details: Sputum PCR positive MRSA Also Proteus Status: Acute (8) Metabolic encephalopathy: Status: Acute (9) History of CVA (cerebrovascular accident): Status: Acute (10) Renal failure (ARF), acute on chronic: Status: Acute (11) Hypertension: Status: Acute Assessment and Plan: 84-year-old male with past medical history of recurrent UTIs, and dementia presented to the hospital with lethargy, and hypoxia. patient then declined and required intensive care and intubation along with brief period Of vasopressors. Course was complicated by acute on chronic kidney injury which has since returned to baseline. Patient was successfully extubated, is now back on medical floor, Severe Sepsis due to aspiration pneumonia + UTI complicated by GILMER on CKD, metabolic encephalopathy, and acute hypoxic respiratory failure, and hypernatremia Continue IV antibiotic day 6/7 id following seen by speech poor p.o. intake difficulty swallowing seen by speech failed swallow evaluation speech recommended continue NPO and plan for modified barium swallow today patient will likely need PEG tube if he failed swallow evaluation on MBBS continue IV fluid Hypernatremia improving sodium trending down 146 today continue D5W monitor sodium level nephrology follow-up Dementia at baseline, patient is wheelchair-bound due to history of CVA, recognizes family members, has a decent appetite, poor short-term memory, poor insight poor overall prognosis
[2020-08-19] MEDS: Dextrose 5 % 1,000 ML 100 ML IVCONT (16:23)
[2020-08-19 19:35] LABS: Anion Gap 14 (12-20); Carbon Dioxide 20 mmol/L (22-29); Chloride 118 mmol/L (96-108); Potassium 4.2 mmol/l (3.3-5.1); Sodium 148 mmol/L (135-145)
[2020-08-20] VITALS (13 sets, daily range): BP systolic 135–182; BP diastolic 42–102; PULSE 58–72; RESP 16–20; TEMP 36.4–36.9; O2SAT 93–97; BMI 26.1
[2020-08-20] MEDS: Doxycycline Hyclate 100 MG in 0.9 % Sodium Chloride 250 ML 166.67 MG IV (00:11)
[2020-08-20] MEDS: Clopidogrel Bisulfate 75 MG TABLET PO (09:31)
[2020-08-20] MEDS: Metoprolol Tartrate 25 MG TABLET PO ×2 (09:32→22:17)
[2020-08-20] MEDS: amLODIPine Besylate 10 MG TABLET PO (09:32)
[2020-08-20] MEDS: 0.9 % Sodium Chloride Flush 3 ML SYRINGE IVFLUSH ×2 (09:33→22:19)
[2020-08-20 11:13] LABS: Anion Gap 12 (12-20); Carbon Dioxide 19 mmol/L (22-29); Chloride 109 mmol/L (96-108); Potassium 3.7 mmol/l (3.3-5.1); Sodium 136 mmol/L (135-145)
--- NOTE | 2020-08-20 11:26 | P.PNNP_ITS ---
Subjective Subjective Interval history: Patient seen and examined Events noted Physical Exam Vital Signs: Vital Signs: Last Vital Signs Temp 98.3 F 08/20/20 07:41 Pulse 71 08/20/20 09:32 Resp 19 08/20/20 07:41 BP 140/72 H 08/20/20 09:32 Pulse Ox 96 08/20/20 03:31 Body Mass Index 26.1 General: lethargic, ill appearing Resp: rales CVS: S1,S2,RRR GI: soft, non tender, non distended Psych: impaired insight Const: Other: he still remains awake and responsive skin is intact just mild redness overlying the coccyx otherwise no skin disruption no livedo no acrocyanosis and vital signs of an exc ellent cardiac exam with normal S1 and normal S2 with no gallops or murmurs chest with bilateral rhonchi consistent with some proximal airway secretions abdomen benign no bruits no tenderness no organomegaly General: no acute distress, in distress, confusion, ill appearing and lethargic Nutritional Appearance: average body habitus and malnourished Orientation/consciousness: No oriented to person, No oriented to place, No oriented to time, confusion and lethargic Limitations: altered mental status HENMT: Head: Yes normal to inspection Face and sinus: Yes normal facial exam Mouth: mucous membranes dry Throat: Yes posterior oropharynx normal Eyes: General: appearance normal, both eyes and all related structures Pupils: Equal, round and reactive pupils present Neck: Neck: Yes normal visual inspection, Yes full ROM and Yes no lymphadenopathy Chest: Chest palpation & inspection: normal inspection of the chest Resp: Effort & Inspection: normal respiratory effort, able to speak in complete sentences, abnormal respiratory pattern and Actively coughing Auscultation: clear to auscultation bilaterally, rales diffuse, rhonchi right lower, no wheezes, diminished lung sounds and vesicular breath sounds Cardio: Rate: regular rate and tachycardic Rhythm: regular rhythm Heart sounds: S1 normal heart sound present, S2 normal heart sound present and no rubs GI: Inspection: Yes normal to inspection Palpation (GI): Soft to palpation and nontender Percussion: Yes normal to percussion Auscultation: normal bowel sounds : Other: Salas catheter in place General: Yes no CVA tenderness Male General Exam: Yes normal external exam Back/Spine/Pelvis: Back: no CVA tenderness Skin: General skin exam: no rashes or lesions noted Hair: normal Neuro: General: No oriented to person, No oriented to place, No oriented to time and confusion Cranial nerves: Yes CN's II-XII intact bilaterally and Yes Equal, round and reactive pupils present Cognition (Neuro): normal cognition Motor exam (neuro): 5/5 motor strength present throughout ( no focal deficit), Motor abnormalities not present and No Asterixis during motor activity present Extrem: General: Yes normal to inspection and Yes no pedal edema Assessment & Plan Assessment and plan (1) Acute kidney injury superimposed on CKD: Status: Acute (2) Hypernatremia: Status: Acute (3) Anemia: Status: Acute (4) Metabolic acidosis: Status: Acute Assessment and Plan: 1. GILMER: Scr this am peending; cont imporvement...c/w multi ATN and/or pre- renal...connt imporvement a good sign 2. 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 HyperNa: resolved 4. Anemia REC: d/c IVF; track renal func;; avoid NToxins; may be a candidate for epo/Fe; check Fe studies ( I will order) Time Spent With Patient Time: Total time spent is greater than 50% in coordination of care (as documented) at patient's floor/unit and/or counseling patient:
[2020-08-20 11:58] LABS: Iron 16 mcg/dL (45-160); Percent Iron Saturation 11 % (15-50); Total Iron Binding Capacity 145 mcg/dL (228-428); Unsaturated Iron Binding 129 ug/dL
[2020-08-20 12:18] LABS: Ferritin 391 ng/mL (20-250)
--- NOTE | 2020-08-20 12:21 | MHC.CLN ---
F/U MBS COMPLETED 08/19 [employer]EARCH AND INSIGHTS EXECUTIVE REC PUREED 08/20 75% PO WILL UPDATE DIET TO PUREED WILL START ENSURE AND INOCENCIO TO PROMOTE WOUND HEALING NOTED BILAT BUTTOCK STAGE 2 FOLLOWING
[2020-08-20] MEDS: Doxycycline Hyclate 100 MG in 0.9 % Sodium Chloride 250 ML 166.7 MG IV (13:09)
[2020-08-20] MEDS: Heparin Sodium,Porcine 5,000 UNIT/ML VIAL 5000 UNIT SUBCUT ×2 (13:23→22:18)
--- NOTE | 2020-08-20 13:44 | HO.PM.IMPN ---
Subjective Subjective Date of Service: 08/20/20 Interval History: Patient seen and examined at bedside patient reports generalized pain Constitutional Constitutional: Reports weakness Cardiovascular Cardiovascular: Denies dyspnea Respiratory Respiratory: Reports cough and Denies dyspnea Gastrointestinal Gastrointestinal: Denies vomiting Neurologic Neurologic: Reports weakness Physical Exam Vital Signs: Vital Signs: Last Vital Signs Temp 98.0 F 08/20/20 13:19 Pulse 64 08/20/20 13:19 Resp 18 08/20/20 13:19 BP 164/97 H 08/20/20 13:19 Pulse Ox 96 08/20/20 11:29 Body Mass Index 26.1 General: lethargic, Resp: rales CVS: S1,S2,RRR GI: soft, non tender, non distended Psych: impaired insight Const: Other: alert but not oriented Objective Data Current Medications Generic Name Dose Route Start Last Admin Trade Name Freq PRN Reason Stop Dose Admin Amlodipine Besylate 10 mg 08/16/20 14:30 08/20/20 09:32 Amlodipine Besylate 10 Mg Tablet PO 10 mg DAILY SHANNON Administration Protocol Clopidogrel Bisulfate 75 mg 08/10/20 09:00 08/20/20 09:31 Clopidogrel Bisulfate 75 Mg Tablet PO 75 mg DAILY SHANNON Administration Heparin Sodium (Porcine) 5,000 unit 08/09/20 23:21 08/20/20 13:23 Heparin Sodium,Porcine 5,000 Unit/Ml Vial SUBCUT 5,000 unit Q12H SHANNON Administration Meropenem 500 mg/ Sodium 50 mls @ 100 mls/hr 08/14/20 01:00 08/20/20 02:58 Chloride IV Infused Q12H SHANNON Infusion Doxycycline Hyclate 100 mg/ 250 mls @ 166.67 mls/hr 08/18/20 12:00 08/20/20 13:09 Sodium Chloride IV 166.7 mls/hr Q12H SHANNON Administration Metoprolol Tartrate 25 mg 08/16/20 14:30 08/20/20 09:32 Metoprolol Tartrate 25 Mg Tablet PO 25 mg BID SHANNON Administration Protocol Omeprazole 20 mg 08/12/20 09:00 08/20/20 09:34 Omeprazole 20 Mg/10 Ml Susp.Recon PO 20 mg DAILY SHANNON Administration Sodium Chloride 3 ml 08/10/20 00:00 08/20/20 09:33 0.9 % Sodium Chloride Flush 3 Ml Syringe IVFLUSH 3 ml QSHIFT SHANNON Administration Labs CBC & Chem 7: 08/19/20 08:16 08/20/20 10:14 Microbiology Microbiology Results: Microbiology 08/15/20 06:50 Blood - Venous Blood Culture - Final No growth after 5 days. 08/15/20 06:50 Blood - Venous Blood Culture - Final No growth after 5 days. 08/11/20 04:39 Blood - Venous Blood Culture - Final No growth after 5 days. 08/11/20 04:35 Blood - Venous Blood Culture - Final No growth after 5 days. 08/11/20 04:29 Sputum - Suctioned Gram Stain - Final 08/11/20 04:29 Sputum - Suctioned Sputum Culture - Final Proteus mirabilis 08/09/20 17:45 Blood - Venous Blood Culture - Final No growth after 5 days. 08/09/20 17:28 Blood - Venous Blood Culture - Final No growth after 5 days. 08/11/20 05:55 Urine Catheterized - Salas Catheter Urine Culture - Final Pseudomonas aeruginosa 08/09/20 21:00 Urine clean catch - Clean Catch Midstream Urine Culture - Final Pseudomonas aeruginosa Assessment and Plan (1) Hypernatremia: Status: Acute (2) UTI (urinary tract infection): Problem details: Possible still colonized Would continue Merem Status: Acute (3) Acute kidney injury superimposed on CKD: Status: Acute (4) Dementia: Status: Acute (5) Sepsis: Status: Acute (6) Pneumonia: Status: Acute (7) Acute respiratory failure with hypoxia: Problem details: Sputum PCR positive MRSA Also Proteus Status: Acute (8) Metabolic encephalopathy: Status: Acute (9) History of CVA (cerebrovascular accident): Status: Acute (10) Renal failure (ARF), acute on chronic: Status: Acute (11) Hypertension: Status: Acute Assessment and Plan: 84-year-old male with past medical history of recurrent UTIs, and dementia presented to the hospital with lethargy, and hypoxia. patient then declined and required intensive care and intubation along with brief period Of vasopressors. Course was complicated by acute on chronic kidney injury which has since returned to baseline. Patient was successfully extubated, is now back on medical floor, Severe Sepsis due to aspiration pneumonia + UTI sepsis resolved resolved complicated by GILMER on CKD, metabolic encephalopathy, and acute hypoxic respiratory failure, and hypernatremia Continue IV antibiotic day 7/7 id following Acute on chronic anemia hemoglobin dropped to 7.2 no active bleeding will transfuse 1 unit of PRBCs monitor H&H Will check stool for occult blood poor p.o. intake difficulty swallowing seen by speech initially failed swallow evaluation speech intially recommended continue NPO and modified barium swallow modified barium swallow done speech recommending pureed and thin liquids Acute on chronic kidney injury improving creatinine was 5.5 on admission trending down significantly recieved i/v fluids monitor kidney function avoid nephrotoxin Hypernatremia resolving sodium trending down stop D5W monitor sodium level nephrology follow-up Dementia at baseline, patient is wheelchair-bound due to history of CVA, recognizes family members, has a decent appetite, poor short-term memory, poor insight poor overall prognosis DVT prophylaxis heparin subcu
--- NOTE | 2020-08-20 15:41 | MHC.CM.PN ---
PINKY DC TO [facility], VIA BLS.
[2020-08-21] VITALS (7 sets, daily range): BP systolic 158–180; BP diastolic 68–98; PULSE 18–85; RESP 16–20; TEMP 36.2–37.2; O2SAT 96–98
[2020-08-21] MEDS: Doxycycline Hyclate 100 MG in 0.9 % Sodium Chloride 250 ML 166.7 MG IV ×2 (00:06→11:28)
[2020-08-21 07:08] LABS: MANUAL DIFF FLAG NO
[2020-08-21 07:12] LABS: Basophils Percent Auto 0.3 % (0-2); Eosinophils Absolute Auto 0.2 X10*3/uL (0.0-0.4); Eosinophils Percent Auto 2.9 % (0-4); Hematocrit 24.6 % (42-52); Hemoglobin 7.6 g/dl (14.0-18.0); Imm Gran Abs Auto 0.05 X10*3/uL (0.00-0.03); Imm Gran Pct Auto 0.6 % (0.0-0.4); Lymphocytes Absolute Auto 1.1 X10*3/uL (1.2-4.9); Lymphocytes Percent Auto 13.9 % (20-40); Mean Corpuscular HGB Conc 30.9 g/dl (31.0-36.0); Mean Corpuscular Hemoglobin 24.5 pg (27.0-33.0); Mean Corpuscular Volume 79.4 fL (80-98); Mean Platelet Volume 10.8 fL (9.4-12.4); Monocytes Absolute Auto 0.5 X10*3/uL (0.1-1.2); Monocytes Percent Auto 6.5 % (2-11); Neutrophils Percent Auto 75.8 % (45-73); Platelet Count 406 X10*3/uL (160-400); Red Cell Distribution Width 20.1 % (11.0-16.0)
[2020-08-21 07:57] LABS: Anion Gap 12 (12-20); Blood Urea Nitrogen 44 mg/dL (9-16); Calcium 6.8 mg/dL (8.4-10.2); Carbon Dioxide 20 mmol/L (22-29); Chloride 114 mmol/L (96-108); Creatinine Clr Calc Pharmacy 25.7; Estimated Glomerular Filt Rate 39; Glucose Random 70 mg/dL (60-115); Potassium 4.1 mmol/l (3.3-5.1); Sodium 142 mmol/L (135-145)
[2020-08-21] MEDS: Clopidogrel Bisulfate 75 MG TABLET PO (08:25)
[2020-08-21] MEDS: amLODIPine Besylate 10 MG TABLET PO (08:25)
[2020-08-21] MEDS: 0.9 % Sodium Chloride Flush 3 ML SYRINGE IVFLUSH ×2 (08:25→15:38)
[2020-08-21] MEDS: Metoprolol Tartrate 25 MG TABLET PO ×2 (08:25→23:51)
[2020-08-21] MEDS: Heparin Sodium,Porcine 5,000 UNIT/ML VIAL 5000 UNIT SUBCUT ×2 (11:28→23:50)
--- NOTE | 2020-08-21 17:35 | P.PNIM_ITS ---
Subjective Subjective Date of Service: 08/21/20 Interval History: seen and examined this AM no complaints, eating his breakfast wnats to go home no events reported by staff nurse anesthetist Review of Systems ros unreliable Physical Exam Vital Signs: Vital Signs: Last Vital Signs Temp 97.2 F 08/21/20 15:11 Pulse 18 L 08/21/20 15:11 Resp 18 08/21/20 15:11 BP 158/78 H 08/21/20 15:11 Pulse Ox 98 08/21/20 15:11 Body Mass Index 26.1 General - no acute distress, appears comfortable Cardiovascular - regular rate and rhythm, S1-S2 Lungs - normal respiratory effort, clear to auscultation bilaterally, no wheezing Abdomen - soft, nontender, no rebound regarding Extremities - no edema bilaterally Neuro - awake and alert, no focal deficits; disoriented Resp: Auscultation: rhonchi right lower Objective Data Current Medications Generic Name Dose Route Start Last Admin Trade Name Freq PRN Reason Stop Dose Admin Acetaminophen 650 mg 08/20/20 13:43 Acetaminophen 325 Mg Tablet PO Q6H PRN Pain, Moderate (Pain Scale 4-6 Amlodipine Besylate 10 mg 08/16/20 14:30 08/21/20 08:25 Amlodipine Besylate 10 Mg Tablet PO 10 mg DAILY SHANNON Administration Protocol Clopidogrel Bisulfate 75 mg 08/10/20 09:00 08/21/20 08:25 Clopidogrel Bisulfate 75 Mg Tablet PO 75 mg DAILY SHANNON Administration Heparin Sodium (Porcine) 5,000 unit 08/09/20 23:21 08/21/20 11:28 Heparin Sodium,Porcine 5,000 Unit/Ml Vial SUBCUT 5,000 unit Q12H SHANNON Administration Doxycycline Hyclate 100 mg/ 250 mls @ 166.67 mls/hr 08/18/20 12:00 08/21/20 13:08 Sodium Chloride IV Infused Q12H SHANNON Infusion Metoprolol Tartrate 25 mg 08/16/20 14:30 08/21/20 08:25 Metoprolol Tartrate 25 Mg Tablet PO 25 mg BID SHANNON Administration Protocol Omeprazole 20 mg 08/12/20 09:00 08/21/20 08:26 Omeprazole 20 Mg/10 Ml Susp.Recon PO 20 mg DAILY SHANNON Administration Sodium Chloride 3 ml 08/10/20 00:00 08/21/20 15:38 0.9 % Sodium Chloride Flush 3 Ml Syringe IVFLUSH 3 ml QSHIFT SHANNON Administration Labs CBC & Chem 7: 08/21/20 06:00 08/21/20 06:00 Microbiology Microbiology Results: Microbiology 08/15/20 06:50 Blood - Venous Blood Culture - Final No growth after 5 days. 08/15/20 06:50 Blood - Venous Blood Culture - Final No growth after 5 days. 08/11/20 04:39 Blood - Venous Blood Culture - Final No growth after 5 days. 08/11/20 04:35 Blood - Venous Blood Culture - Final No growth after 5 days. 08/11/20 04:29 Sputum - Suctioned Gram Stain - Final 08/11/20 04:29 Sputum - Suctioned Sputum Culture - Final Proteus mirabilis 08/09/20 17:45 Blood - Venous Blood Culture - Final No growth after 5 days. 08/09/20 17:28 Blood - Venous Blood Culture - Final No growth after 5 days. 08/11/20 05:55 Urine Catheterized - Salas Catheter Urine Culture - Final Pseudomonas aeruginosa 08/09/20 21:00 Urine clean catch - Clean Catch Midstream Urine Culture - Final Pseudomonas aeruginosa Assessment and Plan (1) Hypernatremia: Status: Acute (2) UTI (urinary tract infection): Status: Acute (3) Acute kidney injury superimposed on CKD: Status: Acute (4) Dementia: Status: Acute (5) Sepsis: Status: Acute (6) Pneumonia: Status: Acute (7) Acute respiratory failure with hypoxia: Status: Acute (8) Metabolic encephalopathy: Status: Acute (9) History of CVA (cerebrovascular accident): Status: Acute (10) Renal failure (ARF), acute on chronic: Status: Acute (11) Hypertension: Status: Acute Assessment and Plan: This is a 84-year-old gentleman who presented to the hospital on August 10 with lethargy and was diagnosed with sepsis likely secondary to urinary tract infection versus pneumonia. He was started on broad-spectrum antibiotics due to his history of ESBL. His hospital course was further complicated by worsening respiratory failure requiring transfer to the ICU for intubation and mechanical ventilation as well as vasopressors for short duration. Fortunately he was able to be weaned and subsequently transferred out of the intensive care on August 17. 1. sepsis secondary to aspiration pneumonia plus urinary tract infection Sepsis resolved urine growing Pseudomonas, completed 7 days of Merrem Sputum growing Proteus, nasal MRSA positive as well. Initially treated the vancomycin and now on doxy for the last 3 days. Will complete a course of antibiotics, few more days doxy Blood cultures negative 2. acute kidney injury on chronic kidney disease, Hypernatremia Due to above Renal function in slowly improving 3. Dysphagia Initially failed swallow evaluation and subsequently was made NPO followed by a modified barium swallow which she subsequently passed. Recommendations are for pureed solids and thin liquids which he appears to be tolerating so far. 4. Dementia likely at baseline 5. ? Acute anemia no evidnece of blood loss apparently transfused 1 unit prbc on 08/20/2020 -- h/h appears stable will recheck labs tomorrow and reassess the need for further transfusions DNR/DNI DVT pptx, subcut. heparin
[2020-08-21 21:04] LABS: Glucose, Whole Blood 84 mg/dL (60-115)
[2020-08-21] MEDS: Doxycycline Hyclate 100 MG in 0.9 % Sodium Chloride 250 ML 166.67 MG IV (23:52)
[2020-08-22] VITALS (8 sets, daily range): BP systolic 137–193; BP diastolic 69–89; PULSE 66–89; RESP 16–22; TEMP 36–37.1; O2SAT 92–95; BMI 25.0
[2020-08-22] MEDS: 0.9 % Sodium Chloride Flush 3 ML SYRINGE IVFLUSH ×4 (01:48→23:32)
[2020-08-22 07:11] LABS: MANUAL DIFF FLAG NO
[2020-08-22 07:23] LABS: Basophils Percent Auto 0.4 % (0-2); Eosinophils Absolute Auto 0.2 X10*3/uL (0.0-0.4); Eosinophils Percent Auto 2.5 % (0-4); Hemoglobin 7.2 g/dl (14.0-18.0); Imm Gran Abs Auto 0.04 X10*3/uL (0.00-0.03); Imm Gran Pct Auto 0.6 % (0.0-0.4); Lymphocytes Absolute Auto 1.1 X10*3/uL (1.2-4.9); Lymphocytes Percent Auto 15.9 % (20-40); Mean Corpuscular Hemoglobin 24.2 pg (27.0-33.0); Mean Corpuscular Volume 80.8 fL (80-98); Mean Platelet Volume 11.2 fL (9.4-12.4); Monocytes Absolute Auto 0.5 X10*3/uL (0.1-1.2); Monocytes Percent Auto 6.8 % (2-11); Neutrophils Percent Auto 73.8 % (45-73); Platelet Count 395 X10*3/uL (160-400); Red Blood Count 2.97 X10*6/uL (4.60-5.80); Red Cell Distribution Width 20.5 % (11.0-16.0); White Blood Count 6.8 X10*3/uL (4.8-10.8)
[2020-08-22 07:37] LABS: Glucose, Whole Blood 72 mg/dL (60-115)
[2020-08-22 08:01] LABS: Anion Gap 16 (12-20); Blood Urea Nitrogen 39 mg/dL (9-16); Calcium 6.9 mg/dL (8.4-10.2); Carbon Dioxide 17 mmol/L (22-29); Chloride 117 mmol/L (96-108); Creatinine Clr Calc Pharmacy 26.1; Estimated Glomerular Filt Rate 40; Glucose Random 66 mg/dL (60-115); Potassium 4.5 mmol/l (3.3-5.1); Sodium 145 mmol/L (135-145)
[2020-08-22] MEDS: Acetaminophen 325 MG TABLET 650 MG PO ×2 (08:47→17:50)
[2020-08-22] MEDS: amLODIPine Besylate 10 MG TABLET PO (08:48)
[2020-08-22] MEDS: Clopidogrel Bisulfate 75 MG TABLET PO (08:48)
[2020-08-22] MEDS: Metoprolol Tartrate 25 MG TABLET PO ×2 (08:48→21:01)
[2020-08-22] MEDS: Doxycycline Hyclate 100 MG in 0.9 % Sodium Chloride 250 ML 166.67 MG IV ×2 (11:12→23:32)
[2020-08-22] MEDS: Heparin Sodium,Porcine 5,000 UNIT/ML VIAL 5000 UNIT SUBCUT ×2 (11:13→23:31)
--- NOTE | 2020-08-22 11:31 | MHC.CM.PN ---
PER 's request, CM informed [facility] that Patient is ready for dc today(Via [employer], Message left for Liaison/Keena at [phone], and unanswered call directly to the SNF @ [phone]). CM awaits response from SNF to proceed with Patient's return. CM will follow.
--- NOTE | 2020-08-22 13:18 | P.PNIM_ITS ---
Subjective Subjective Date of Service: 08/22/20 Interval History: seen and examined this AM no new issues awaiting transfer to [facility] Physical Exam Vital Signs: Vital Signs: Last Vital Signs Temp 96.8 F 08/22/20 11:17 Pulse 89 08/22/20 11:17 Resp 18 08/22/20 11:17 BP 168/69 H 08/22/20 11:17 Pulse Ox 94 08/22/20 11:17 Body Mass Index 25.0 General - no acute distress, appears comfortable Cardiovascular - regular rate and rhythm, S1-S2 Lungs - normal respiratory effort, clear to auscultation bilaterally, no whee zing Abdomen - soft, nontender, no rebound regarding Extremities - no edema bilaterally Neuro - awake and alert, no focal deficits; disoriented Objective Data Current Medications Generic Name Dose Route Start Last Admin Trade Name Freq PRN Reason Stop Dose Admin Acetaminophen 650 mg 08/20/20 13:43 08/22/20 08:47 Acetaminophen 325 Mg Tablet PO 650 mg Q6H PRN Administration Pain, Moderate (Pain Scale 4-6 Amlodipine Besylate 10 mg 08/16/20 14:30 08/22/20 08:48 Amlodipine Besylate 10 Mg Tablet PO 10 mg DAILY SHANNON Administration Protocol Clopidogrel Bisulfate 75 mg 08/10/20 09:00 08/22/20 08:48 Clopidogrel Bisulfate 75 Mg Tablet PO 75 mg DAILY SHANNON Administration Heparin Sodium (Porcine) 5,000 unit 08/09/20 23:21 08/22/20 11:13 Heparin Sodium,Porcine 5,000 Unit/Ml Vial SUBCUT 5,000 unit Q12H SHANNON Administration Doxycycline Hyclate 100 mg/ 250 mls @ 166.67 mls/hr 08/18/20 12:00 08/22/20 12:52 Sodium Chloride IV Infused Q12H SHANNON Infusion Metoprolol Tartrate 25 mg 08/16/20 14:30 08/22/20 08:48 Metoprolol Tartrate 25 Mg Tablet PO 25 mg BID SHANNON Administration Protocol Omeprazole 20 mg 08/12/20 09:00 08/22/20 08:48 Omeprazole 20 Mg/10 Ml Susp.Recon PO 20 mg DAILY SHANNON Administration Sodium Chloride 3 ml 08/10/20 00:00 08/22/20 08:47 0.9 % Sodium Chloride Flush 3 Ml Syringe IVFLUSH 3 ml QSHIFT SHANNON Administration Labs CBC & Chem 7: 08/22/20 05:58 08/22/20 05:58 Microbiology Microbiology Results: Microbiology 08/15/20 06:50 Blood - Venous Blood Culture - Final No growth after 5 days. 08/15/20 06:50 Blood - Venous Blood Culture - Final No growth after 5 days. 08/11/20 04:39 Blood - Venous Blood Culture - Final No growth after 5 days. 08/11/20 04:35 Blood - Venous Blood Culture - Final No growth after 5 days. 08/11/20 04:29 Sputum - Suctioned Gram Stain - Final 08/11/20 04:29 Sputum - Suctioned Sputum Culture - Final Proteus mirabilis 08/09/20 17:45 Blood - Venous Blood Culture - Final No growth after 5 days. 08/09/20 17:28 Blood - Venous Blood Culture - Final No growth after 5 days. 08/11/20 05:55 Urine Catheterized - Salas Catheter Urine Culture - Final Pseudomonas aeruginosa 08/09/20 21:00 Urine clean catch - Clean Catch Midstream Urine Culture - Final Pseudomonas aeruginosa Assessment and Plan (1) UTI (urinary tract infection): Status: Acute (2) Acute kidney injury superimposed on CKD: Status: Acute (3) Dementia: Status: Acute (4) Sepsis: Status: Acute (5) Pneumonia: Status: Acute (6) Acute respiratory failure with hypoxia: Status: Acute (7) Metabolic encephalopathy: Status: Acute (8) History of CVA (cerebrovascular accident): Status: Acute (9) Renal failure (ARF), acute on chronic: Status: Acute (10) Hypertension: Status: Acute Assessment and Plan: This is a 84-year-old gentleman who presented to the hospital on August 10 with lethargy and was diagnosed with sepsis likely secondary to urinary tract infection versus pneumonia. He was started on broad-spectrum antibiotics due to his history of ESBL. His hospital course was further complicated by worsening respiratory failure requiring transfer to the ICU for intubation and mechanical ventilation as well as vasopressors for short duration. Fortunately he was able to be weaned and subsequently transferred out of the intensive care on August 17. medically stable for d/c to SNF when bed available 1. sepsis secondary to aspiration pneumonia plus urinary tract infection Sepsis resolved urine growing Pseudomonas, completed 7 days of Merrem Sputum growing Proteus, nasal MRSA positive as well. Initially treated the vancomycin and now on doxy for the last 3 days. Will complete a course of antibiotics, few more days doxy Blood cultures negative 2. acute kidney injury on chronic kidney disease, Hypernatremia Due to above Renal function in slowly improving 3. Dysphagia Initially failed swallow evaluation and subsequently was made NPO followed by a modified barium swallow which she subsequently passed. Recommendations are for pureed solids and thin liquids which he appears to be tolerating so far. 4. Dementia likely at baseline 5. ? Acute anemia no evidnece of blood loss apparently transfused 1 unit prbc on 08/20/2020 -- h/h appears stable will recheck labs tomorrow and reassess the need for further transfusions DNR/DNI DVT pptx, subcut. heparin
--- NOTE | 2020-08-22 17:54 | PM.PNNEP ---
Subjective Subjective Interval history: Seen and edxamined. Evets noted Physical Exam Vital Signs: Vital Signs: Last Vital Signs Temp 98.1 F 08/22/20 16:00 Pulse 80 08/22/20 17:00 Resp 22 H 08/22/20 16:00 BP 162/78 H 08/22/20 17:00 Pulse Ox 95 08/22/20 16:00 Body Mass Index 25.0 General: lethargic, ill appearing Resp: rales CVS: S1,S2,RRR GI: soft, non tender, non distended Psych: impaired insight Const: Other: he still remains awake and responsive skin is intact just mild redness overlying the coccyx otherwise no skin disruption no livedo no acrocyanosis and vital signs of an exc ellent cardiac exam with normal S1 and normal S2 with no gallops or murmurs chest with bilateral rhonchi consistent with some proximal airway secretions abdomen benign no bruits no tenderness no organomegaly General: no acute distress, in distress, confusion, ill appearing and lethargic Nutritional Appearance: average body habitus and malnourished Orientation/consciousness: No oriented to person, No oriented to place, No oriented to time, confusion and lethargic Limitations: altered mental status HENMT: Head: Yes normal to inspection Face and sinus: Yes normal facial exam Mouth: mucous membranes dry Throat: Yes posterior oropharynx normal Eyes: General: appearance normal, both eyes and all related structures Pupils: Equal, round and reactive pupils present Neck: Neck: Yes normal visual inspection, Yes full ROM and Yes no lymphadenopathy Chest: Chest palpation & inspection: normal inspection of the chest Resp: Effort & Inspection: normal respiratory effort, able to speak in complete sentences, abnormal respiratory pattern and Actively coughing Auscultation: clear to auscultation bilaterally, rales diffuse, rhonchi right lower, no wheezes, diminished lung sounds and vesicular breath sounds Cardio: Rate: regular rate and tachycardic Rhythm: regular rhythm Heart sounds: S1 normal heart sound present, S2 normal heart sound present and no rubs GI: Inspection: Yes normal to inspection Palpation (GI): Soft to palpation and nontender Percussion: Yes normal to percussion Auscultation: normal bowel sounds : Other: Salas catheter in place General: Yes no CVA tenderness Male General Exam: Yes normal external exam Back/Spine/Pelvis: Back: no CVA tenderness Skin: General skin exam: no rashes or lesions noted Hair: normal Neuro: General: No oriented to person, No oriented to place, No oriented to time and confusion Cranial nerves: Yes CN's II-XII intact bilaterally and Yes Equal, round and reactive pupils present Cognition (Neuro): normal cognition Motor exam (neuro): 5/5 motor strength present throughout ( no focal deficit), Motor abnormalities not present and No Asterixis during motor activity present Extrem: General: Yes normal to inspection and Yes no pedal edema Assessment & Plan Assessment and plan (1) Acute kidney injury superimposed on CKD: Status: Acute (2) Hypernatremia: Status: Acute (3) Anemia: Status: Acute (4) Metabolic acidosis: Status: Acute Assessment and Plan: 1. GILMER: resolved 2. 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 HyperNa: resolved 4. Anemia REC: cont to track renal func;; avoid NToxins; may be a candidate for epo/Fe; check Fe studies Time Spent With Patient Time: Total time spent is greater than 50% in coordination of care (as documented) at patient's floor/unit and/or counseling patient:
[2020-08-23] VITALS: PULSE 71; RESP 20; TEMP 37; O2SAT 96
[2020-08-23 04:00] VITALS: BP 177/90; PULSE 85; RESP 18; TEMP 37.3; O2SAT 94
[2020-08-23 06:00] VITALS: BMI 26.4
[2020-08-23 07:30] VITALS: BP 182/99; PULSE 81; RESP 20; TEMP 36.9; O2SAT 93
[2020-08-23] MEDS: amLODIPine Besylate 10 MG TABLET PO (08:46)
[2020-08-23] MEDS: 0.9 % Sodium Chloride Flush 3 ML SYRINGE IVFLUSH (08:46)
[2020-08-23] MEDS: Clopidogrel Bisulfate 75 MG TABLET PO (08:46)
[2020-08-23] MEDS: Metoprolol Tartrate 25 MG TABLET PO (08:46)
[2020-08-23 11:12] VITALS: BP 157/75; PULSE 61; RESP 20; TEMP 36.9; O2SAT 94
--- NOTE | 2020-08-23 11:41 | P.DS_ITS ---
DS: Providers Provider Date of admission: 08/09/20 21:44 Primary care physician: Mitchell Atkins MD Consults: 08/09/20 23:21 Consult to Nephrology Routine Consulting Provider: David Perez Reason for consultation: GILMER, hypernatremia Has provider been notified: No 08/10/20 05:24 Consult to Infectious Diseases Routine Consulting Provider: Hanna Flood Reason for consultation: esbl/vre 08/10/20 08:07 Consult to Infectious Diseases Routine Consulting Provider: Hanna Flood Reason for consultation: sepsis, pneumonia, uti 08/12/20 05:13 Consult to Urology Routine Consulting Provider: Armando Dominguez Reason for consultation: urosepsis with left hydronephrosis Has provider been notified: Yes DS: Diagnosis Discharge Diagnosis (1) Acute kidney injury superimposed on CKD: Status: Acute (2) Hypernatremia: Status: Acute (3) Anemia: Status: Acute (4) Acute respiratory failure with hypoxia: Status: Acute (5) Pneumonia: Status: Acute (6) Sepsis: Status: Acute (7) UTI (urinary tract infection): Status: Acute DS: Summary Hospital Course Hospital Course: patient presented to the hospital with lethargy. He was diagnosed with sepsis secondary to urinary tract infection versus pneumonia. He was started on broad- spectrum antibiotics, however unfortunately his respiratory status deteriorated and ultimately he was transferred to the intensive care where he was intubated. Fortunately he was able to be successfully weaned and transitioned back to the floor where he was ultimately weaned to room air. In regards to his infectious process, he completed his course of broad-spectrum meropenem/vancomycin plus doxycycline in the hospital and does not need any antibiotics at the time of discharge. Additionally patient was found to be significantly hypernatremic with acute on chronic kidney disease. Initially he was treated with TPN and as his condition improved he underwent a swallowing evaluation which he was able to pass and cleared for pureed solids and thin liquids. In regards to the patients chronic mood medications -- due to his acute illness/lethargy/respiratory failure, they were held and not initiated in the hospital. Recommend reinitiation in a step cox fashion at SNF, if necessary. Time Spent with Patient Time attestation: Total time spent providing and/or coordinating discharge services: Physical Exam Vital Signs: Vital Signs: Last Vital Signs Temp 98.4 F 08/23/20 11:12 Pulse 61 08/23/20 11:12 Resp 20 08/23/20 11:12 BP 157/75 H 08/23/20 11:12 Pulse Ox 94 08/23/20 11:12 Body Mass Index 26.4 General - no acute distress, appears comfortable Cardiovascular - regular rate and rhythm, S1-S2 Lungs - normal respiratory effort, clear to auscultation bilaterally, no wheezing Abdomen - soft, nontender, no rebound regarding Extremities - no edema bilaterally Neuro - awake and alert, no focal deficits; oriented to self DS: Data Data Completed and Pending Labs on day of discharge: 07/22/2020 WBC 6.9 Hemoglobin 7.2 Hematocrit 24 Platelets 395 Sodium 145 Potassium 4.5 Chloride 117 Bicarb 17 BUN 39 Creatinine 1.65 Discharge Plan Discharge Patient Disposition: er [facility] Referrals: [facility] [Outside] Mitchell Atkins MD [Primary Care Provider] - Discharge Medications: Continued hydralazine 10 mg tablet 20 mg PO DAILY@1999 RF: 0 atorvastatin 80 mg tablet 1 tab PO DAILY RF: 0 donepezil 10 mg tablet 1 tab PO DAILY RF: 0 clopidogrel 75 mg tablet 1 tab PO DAILY RF: 0 amlodipine 10 mg tablet 1 tab PO DAILY RF: 0 omeprazole 20 mg capsule,delayed release(DR/EC) 1 cap PO DAILY RF: 0 metoprolol tartrate 25 mg tablet 1 tab PO BID RF: 0 Discontinued doxycycline hyclate 100 mg capsule 1 cap PO BID RF: 0 olanzapine 5 mg tablet 1 tab PO BEDTIME RF: 0 lorazepam 0.5 mg tablet 0.5 mg PO Q4-6H PRN (Reason: Agitation) RF: 0 cephalexin 500 mg capsule 1 cap PO BID RF: 0 cephalexin 500 mg capsule 1 cap PO BID RF: 0 sertraline 25 mg tablet 1 tab PO DAILY RF: 0 divalproex 125 mg capsule, delayed rel sprinkle 250 mg PO BID RF: 0 haloperidol lactate 2 mg/mL concentrate 1 mg PO BID RF: 0 Discharge Orders: Discharge Order (Routine); Ordered 08/23/20 Ordered By: Andrew Pedro Diet: other Activity on Discharge: As tolerated Visit Report Forms: Patient Portal Discharge page Care Plan Goals: To stay out of the hospital Health Concerns: UTI/Pneumonia Respiratory Failure Plan of Treatment: Completed antibiotics
--- NOTE | 2020-08-23 12:30 | MHC.CM.PN ---
Patient will be discharged today to [facility] and rehab at 4:30 pm via BLS transport. Brandon Ferrell, nurse and MD are all aware.
--- NOTE | 2020-08-23 14:29 | HO.PICC ---
PICC Line Insertion 08/23/20 AT [id number]. PICC REMOVAL PER REQUEST-NO LONGER NEEDED. NOTED 5 FR TRIPLE LUMEN PICC TO RUE DRESSED WITH VISIBLY CLEAN STATLOCK, BIOPATCH AND TEGADERM; SECURED WITH EXT LENGTH AT 0 CM. NO REDNESS/SWELLING/SKIN IRRITATION NOTED. ABLE TO EASILY ASPIRATE/VISUALIZE BLOOD RETURN TO ALL THREE LUMENS; ALL THREE LUMENS FLUSH EASILY. A 38 CM, INTACT, 5 FR TRIPLE LUMEN PICC WAS REMOVED FROM RUE. NO NOTED BLEEDING. SITE COVERED WITH STERILE GAUZE AND TEGADERM.
[2020-08-23 15:17] LABS: SARS COV2 PCR INHOUSE NEGATIVE (Negative)
[2020-08-23 15:25] VITALS: BP 131/67; PULSE 74; RESP 22; TEMP 37.2; O2SAT 98
== END 2020-08-23 17:54 | disposition skilled nursing facility (03) | DRG 871 ==
LOC: HO.ED 22:01 → HO.IMC 23:16 → HO.ICU 08-11 04:10 → HO.IMC 08-16 14:59
PROVIDERS: Anesthesiology; Internal Medicine; Internal Medicine Cardiovascular Disease; Internal Medicine Hypertension Specialist; Internal Medicine Nephrology; Registered Nurse Community Health; Admitting Provider Internal Medicine; Emergency Provider Internal Medicine; PCP Family Medicine; Visit Provider Family Medicine
DX: A41.9 Sepsis, unspecified organism (principal); N17.0 Acute kidney failure with tubular necrosis; J96.01 Acute respiratory failure with hypoxia; G93.41 Metabolic encephalopathy; J69.0 Pneumonitis due to inhalation of food and vomit; R57.0 Cardiogenic shock; N18.4 Chronic kidney disease, stage 4 (severe); N13.6 Pyonephrosis; E87.2 Acidosis; I69.954 Hemiplegia and hemiparesis following unspecified cerebrovascular disease affecting left non-dominant side; E44.0 Moderate protein-calorie malnutrition; E87.0 Hyperosmolality and hypernatremia; F03.90 Unspecified dementia, unspecified severity, without behavioral disturbance, psychotic disturbance, mood disturbance, and anxiety; I12.9 Hypertensive chronic kidney disease with stage 1 through stage 4 chronic kidney disease, or unspecified chronic kidney disease; R65.20 Severe sepsis without septic shock; R33.9 Retention of urine, unspecified; D63.1 Anemia in chronic kidney disease; B96.1 Klebsiella pneumoniae [K. pneumoniae] as the cause of diseases classified elsewhere; B95.62 Methicillin resistant Staphylococcus aureus infection as the cause of diseases classified elsewhere; Z68.26 Body mass index [BMI] 26.0-26.9, adult; B96.5 Pseudomonas (aeruginosa) (mallei) (pseudomallei) as the cause of diseases classified elsewhere; Z20.828 Contact with and (suspected) exposure to other viral communicable diseases; Z87.440 Personal history of urinary (tract) infections; Z79.02 Long term (current) use of antithrombotics/antiplatelets; Z79.899 Other long term (current) drug therapy; Z66 Do not resuscitate
CPT/HCPCS: 36415; 36573; 36600; 70450; 71045; 71250; 74176; 74230; 76775; 80048; 80051; 80053; 80202; 81001; 82040; 82272; 82728; 82803; 82947; 83540; 83605; 83735; 84100; 84295; 84478; 85007; 85025; 85027; 85060; 86850; 86900; 86901; 86920; 86923; 87040; 87070; 87077; 87086; 87088; 87186; 87205; 87324; 87449; 87635; 87640; 87641; 92526; 92610; 92611; 93005; 94002; 94003; 96361; 96365; 96375; 99225; 99232; 99233; 99285; C1751; J0610; J0637; J1160; J1250; J1956; J2185; J2250; J3370; J3475; P9016; U0003